=== PATIENT | male | born 1945 | race Caucasian/White ===

== ENCOUNTER 2016-07-29 14:46 | Emergency (ER) | payer BC ==
[~2016-07-29] VITALS: Ht 182.9 cm; Wt 107.0 kg
[~2016-07-29 14:46] MED LIST: ASPEC81 PO; GLIP-197 PO; HYDR12.56 PO; LATA0.5S OPB; LSN20 PO; METF-384 PO; NRV5 PO; OMEP20CA9 PO; PLV75 PO; VARD10TA PO
[2016-07-29 14:56] VITALS: BP 165/86; PULSE 73; TEMP 36.2; O2SAT 95; Ht 182.9 cm; Wt 107.0 kg
--- NOTE | 2016-07-29 15:53 | DIAGNOSTIC IMAGING REPORT ---
LEFT FIFTH FINGER 4 VIEWS CLINICAL HISTORY: Left fifth finger pain COMPARISON: None. DISCUSSION: No acute fractures or dislocations are visualized. There is a small radiopaque foreign body within the superficial soft tissues at the level of the mid metacarpal level. IMPRESSION: 1. Mild degenerative change. No acute fractures 2. Small superficial foreign body at the mid metacarpal level Electronically signed by: Conner Gamino M.D. 07/29/2016 3:52 PM Dictated Date/Time: 07/29/2016 3:51 PM
[2016-07-29] MEDS ORDERED: CYAN100073 PO (16:29)
[2016-07-29] MEDS ORDERED: CHOL20007 PO (16:29)
[2016-07-29] MEDS ORDERED: ASPI81TA28 PO (16:29)
--- NOTE | 2016-07-29 16:36 | EMERGENCY ROOM VISIT NOTE ---
ED Visit Note First contact with patient: 15:04 I did evaluate and examine this patient myself. I did guide management for the patient. I agree with the PA's assessment as discussed. Please see the PAs dictation for further details. I did independently review the x-rays.
--- NOTE | 2016-07-29 17:09 | EMERGENCY ROOM VISIT NOTE ---
History First contact with patient: 15:04 Chief Complaint: FINGER PAIN Stated Complaint: BROKEN FINGER History of Present Illness The patient is a 71 year old male who presents to the Emergency Room with complaints of left fifth finger pain after he tripped and fell this morning. The patient was initially seen at the [facility] urgent care [place], and was referred to the emergency department for possible fracture dislocation of the finger. The patient brought x-rays on disc with him. The patient reports pain mostly at the base of the finger. He denies any pain extending into the hand or wrist. He denies any paresthesias or numbness of the left fifth finger, and rates his discomfort a 4 out of 10. The patient is [id number]. Review of Systems 10 system review was performed and was negative except for pertinent positives and negatives as indicated in history of present illness Past Medical/Surgical History Medical Problems: (1) Back pain (2) Carotid artery disease (3) Cerebrovascular disease (4) Diab Sunshine Wo Compl, Type Ii Or Unspec Type, Not Uncntrld (5) Diabetes type 2, controlled (6) Dyslipidemia (7) Esophageal Reflux (8) GERD (gastroesophageal reflux disease) (9) Hypertension (10) Hypertension Nos Surgical Problems: (1) H/O hemorrhoidectomy (2) History of cataract surgery (3) Hx of tonsillectomy (4) S/P laser trabeculoplasty of eye (5) Status post cataract extraction Family History FH: diabetes mellitus FH: hypertension No pertinent family history Social History Smoking Status: Never Smoker Alcohol Use: occasionally Marital Status: Occupation Status: retired Current/Historical Medications Scheduled Amlodipine Besylate (Amlodipine Besylate), 5 MG PO QAM Aspirin (Aspirin Ec), 81 MG PO DAILY Cholecalciferol (Vitamin D3), 1 TAB PO DAILY Clopidogrel Bisulfate (Clopidogrel), 75 MG PO QAM Cyanocobalamin (B12), 1 TAB PO DAILY Glipizide (Glipizide Er), 1 TAB PO DAILY Hydrochlorothiazide (Hctz), 12.5 MG PO DAILY Latanoprost (Xalatan 0.005% Oph Precious), 1 DROPS OPB QAM Lisinopril (Lisinopril), 20 MG PO DAILY Metformin Hcl (Glucophage), 1,000 MG PO BID Omeprazole (Prilosec), 20 MG PO DAILY Allergies Coded Allergies: No Known Allergies (Unverified , 07/29/16) Physical Exam Vital Signs Date Time Temp Pulse Resp B/P Pulse Ox O2 Delivery O2 Flow Rate FiO2 07/29/16 14:56 36.2 73 16 165/86 95 Room Air Pain Rating (0-10): 0 Physical Exam CONSTITUTIONAL: Healthy and well nourished. Alert and oriented X 3 with positive affect. HEENT: Normocephalic, atraumatic. Pupils equal, round and reactive. NECK: Full active range of motion without discomfort. MUSCULOSKELETAL: Examination of the left hand shows mild dorsal edema about the MCP joint. Otherwise the patient has bilateral Dupuytren's contractures, with tenderness to the volar hand and proximal phalanx region. DIP and PIP collateral ligaments are intact. No tenderness to palpation about the wrist. Capillary refill is less than 2 seconds. INTEGUMENTARY: No rash or other significant dermatologic conditions noted. NEUROLOGIC: Left fifth finger is sensory intact. Medical Decision & Procedures ER Provider Diagnostic Interpretation: I did review the patient's x-rays from the [facility] urgent care center. AP views were normal, however the entire finger could not be seen on lateral view. I therefore ordered x-rays in our department, which showed no fractures or dislocations. Radiologist report is as follows: LEFT FIFTH FINGER 4 VIEWS CLINICAL HISTORY: Left fifth finger pain COMPARISON: None. DISCUSSION: No acute fractures or dislocations are visualized. There is a small radiopaque foreign body within the superficial soft tissues at the level of the mid metacarpal level. IMPRESSION: 1. Mild degenerative change. No acute fractures 2. Small superficial foreign body at the mid metacarpal level ED Course Patient history and physical exam were performed. Nurse's notes were reviewed. X-rays of the left hand were normal. The patient's injuries in the presence of a Dupuytren's contracture makes examination difficult. The patient reports that he has been splinting the finger, and bought some tape to tape the fingers together. The patient reports that his PCP was trying to refer him to Dr. Gentile, but does not have an appointment scheduled for the next few months. The patient was instructed to call his office on Sunday and advise them that he was in the emergency department for finger injury. The patient was encouraged to take ibuprofen or Tylenol as needed for pain, along with ice for swelling and additional pain relief. The patient was happy with plan of care, and voiced understanding of all discharge instructions. The patient was also seen and examined by Dr. Peterson, ED attending physician, who agrees with workup and plan of care. Medical Decision Impression Primary Impression: Injury of left little finger Additional Impression: Bilateral Dupuytren's contractures Departure Information Dispostion Home / Self-Care Condition GOOD Referrals Aaron Gentile MD Forms HOME CARE DOCUMENTATION FORM, IMPORTANT VISIT INFORMATION Patient Instructions Creative[employer] Additional Instructions Intermittently apply ice to finger. Continue with splinting and/or judson taping for support. Ibuprofen or Tylenol as needed for pain. Follow-up with Dr. Gentile for further reevaluation and management - call Sunday for an appointment. Problem Qualifiers
== END 2016-07-29 16:47 | disposition home or self-care (01) ==
LOC: C.EDB 14:47 → C.EDD 16:47
DX: S69.92XA Unspecified injury of left wrist, hand and finger(s), initial encounter (principal); M72.0 Palmar fascial fibromatosis [Dupuytren]; E11.9 Type 2 diabetes mellitus without complications; Z79.84 Long term (current) use of oral hypoglycemic drugs; K21.9 Gastro-esophageal reflux disease without esophagitis; E78.5 Hyperlipidemia, unspecified; I10 Essential (primary) hypertension; Z79.82 Long term (current) use of aspirin; Z83.3 Family history of diabetes mellitus; Z82.49 Family history of ischemic heart disease and other diseases of the circulatory system; W01.0XXA Fall on same level from slipping, tripping and stumbling without subsequent striking against object, initial encounter; Y93.89 Activity, other specified; Y92.89 Other specified places as the place of occurrence of the external cause; Y99.8 Other external cause status

== ENCOUNTER → 2016-09-15 | Outpatient (CLI) | payer BC ==
[~2016-09-15] MED LIST changes: -ASPEC81 PO; +ASPI81TA28 PO; +CHOL20007 PO; +CYAN100073 PO; -VARD10TA PO
[2016-09-15 13:45] LABS: ALT/SGPT 54 U/L (12-78); AST/SGOT 23 U/L (15-37); BLOOD UREA NITROGEN 16 mg/dl (7-18); BUN/CREATININE RATIO 14.4 (10-20); CARBON DIOXIDE 29 mmol/L (21-32); CHLORIDE 103 mmol/L (98-107); GLUCOSE 115 mg/dl (70-99); POTASSIUM 4.2 mmol/L (3.5-5.1); SODIUM 139 mmol/L (136-145)
[2016-09-15 13:47] LABS: ESTIMATED AVERAGE GLUCOSE 160 mg/dl; HA1C FLAG Normal (Normal)
[2016-09-15 13:50] LABS: ALB/GLOB RATIO 1.1 (0.9-2); ALKALINE PHOSPHATASE 61 U/L (45-117); CHOLESTEROL 168 mg/dl (0-200); CHOLESTEROL/HDL RATIO 4.1; HDL CHOLESTEROL 41 mg/dl; LDL CHOLESTEROL CALCULATED 86 mg/dl; TRIGLYCERIDES 205 mg/dl (0-150); VERY LOW DENSITY LIPOPROT CALC 41 mg/dl
--- NOTE | 2016-09-19 11:04 | CODING QUERY MEDICAL NECESSITY ---
SUPPORTING DIAGNOSIS NEEDED Dr. Erickson, A supporting diagnosis is required for the test/procedure performed on this patient in order for us to be reimbursed by the patient's insurance. Please provide a supporting diagnosis for the following test/procedure listed below next to the test name along with your signature. *If there is no additional diagnosis for this patient that would support the following test/procedure please document that below next to the test/procedure. Test(s)/Procedure(s) that require a supporting diagnosis: * [id number] GLYCATED HEMOGLOBIN DIAGNOSIS: * [id number] PSA DIAGNOSIS: DATE OF SERVICE: 09/15/16 Provider Signature: Date: Thank you Mat Carrero [facility] Information Management Once completed, please kindly fax back to [phone] For questions please call [phone]
== END | disposition home or self-care (01) ==
LOC: C.LABPBG 08:24
PROVIDERS: ATTEND Neuromusculoskeletal Medicine & OMM
DX: Z00.00 Encounter for general adult medical examination without abnormal findings (principal); E11.9 Type 2 diabetes mellitus without complications

== ENCOUNTER → 2016-09-22 | Outpatient (CLI) | payer BC ==
--- NOTE | 2016-09-22 09:12 | DIAGNOSTIC IMAGING REPORT ---
THORACIC SPINE 3 VIEWS CLINICAL HISTORY: Chronic thoracic back pain. FINDINGS: AP, lateral, and swimmer's views of the thoracic spine are compared to study dated 11/06/[address] scan of the thoracic spine dated 05/18/2016. The skeletal structures are osteopenic. There is no radiographic evidence of fracture or malalignment. Vertebral body height and alignment are maintained. There is mild hyperkyphosis. Anterior osteophytes are seen throughout. The transverse processes and pedicles are grossly intact on the frontal view. Mild multilevel degenerative disc space narrowing is observed. The visualized lung parenchyma appears clear. IMPRESSION: 1. No acute bony abnormality is seen involving the thoracic spine. 2. Osteopenia and mild degenerative change as above. Electronically signed by: Pk Osuna M.D. 09/22/2016 9:11 AM Dictated Date/Time: 09/22/2016 9:09 AM
== END | disposition home or self-care (01) ==
LOC: C.RAD1850 08:50
PROVIDERS: ATTEND Neuromusculoskeletal Medicine & OMM
DX: M54.9 Dorsalgia, unspecified (principal); M85.88 Other specified disorders of bone density and structure, other site

== ENCOUNTER → 2016-12-22 | Outpatient (CLI) | payer BC ==
[~2016-12-22] MED LIST changes: +AMLO-110 PO; +CLOP1TAB15 PO; +DEXTSYP27 PO; +LISI1TAB3 PO; +MELO15TA4 PO; +METH500T37 PO; +VARD10TA PO
[2016-12-22 12:30] LABS: BASO % 0.3 %; BASO ABS # 0.03 K/uL (0-0.2); COMPLETE YES; EOS % 3.7 %; HEMATOCRIT 45.8 % (42-52); IG% 0.2 %; LYMPH ABS # 1.39 K/uL (1.2-3.4); MEAN CORPUSCULAR HEMOGLOBIN 28.6 pg (25-34); MEAN CORPUSCULAR HGB CONC 33.6 g/dl (32-36); MEAN PLATELET VOLUME 11.4 fL (7.4-10.4); NEUT % 73.8 %; PLATELET COUNT 254 K/uL (130-400); RED BLOOD COUNT 5.39 M/uL (4.7-6.1)
[2016-12-22 14:14] LABS: ALKALINE PHOSPHATASE 83 U/L (45-117); ALT/SGPT 67 U/L (12-78); AST/SGOT 33 U/L (15-37); BLOOD UREA NITROGEN 12 mg/dl (7-18); BUN/CREATININE RATIO 11.7 (10-20); CARBON DIOXIDE 29 mmol/L (21-32); CHLORIDE 102 mmol/L (98-107); GLUCOSE 143 mg/dl (70-99); POTASSIUM 3.5 mmol/L (3.5-5.1); SODIUM 139 mmol/L (136-145)
[2016-12-22 14:27] LABS: LYME DISEASE AB IGG POS (NEG); LYME DISEASE AB IGM POS (NEG)
[2016-12-27 15:00] LABS: 18KDIGG BAND NONREACTIVE (NONREACTIVE); 23KDIGG BAND REACTIVE (NONREACTIVE); 23KDIGM BAND REACTIVE (NONREACTIVE); 28KDIGG BAND NONREACTIVE (NONREACTIVE); 30KDIGG BAND NONREACTIVE (NONREACTIVE); 39KDIGG BAND NONREACTIVE (NONREACTIVE); 39KDIGM BAND NONREACTIVE (NONREACTIVE); 41KDIGG BAND REACTIVE (NONREACTIVE); 41KDIGM BAND REACTIVE (NONREACTIVE); 45KDIGG BAND REACTIVE (NONREACTIVE); 58KDIGG BAND REACTIVE (NONREACTIVE); 66KDIGG BAND REACTIVE (NONREACTIVE); 93KDIGG BAND REACTIVE (NONREACTIVE)
== END | disposition home or self-care (01) ==
LOC: C.LABPBG 07:42
PROVIDERS: ATTEND Neuromusculoskeletal Medicine & OMM
DX: R21 Rash and other nonspecific skin eruption (principal)

== ENCOUNTER → 2017-01-25 | Outpatient (CLI) | payer BC ==
[~2017-01-25] MED LIST changes: -AMLO-110 PO; -CLOP1TAB15 PO; -DEXTSYP27 PO; -LISI1TAB3 PO; -MELO15TA4 PO; -METH500T37 PO; -VARD10TA PO
[2017-01-25 13:27] LABS: ESTIMATED AVERAGE GLUCOSE 151 mg/dl; HA1C FLAG Normal (Normal)
[2017-01-25 14:44] LABS: BLOOD UREA NITROGEN 12 mg/dl (7-18); BUN/CREATININE RATIO 10.7 (10-20); CARBON DIOXIDE 28 mmol/L (21-32); CHLORIDE 103 mmol/L (98-107); GLUCOSE 118 mg/dl (70-99); POTASSIUM 4.1 mmol/L (3.5-5.1); SODIUM 140 mmol/L (136-145)
--- NOTE | 2017-01-31 10:14 | CODING QUERY MEDICAL NECESSITY ---
SUPPORTING DIAGNOSIS NEEDED Dr. Eirckson, A supporting diagnosis is required for the test/procedure performed on this patient in order for us to be reimbursed by the patient's insurance. Please provide a supporting diagnosis for the following test/procedure listed below next to the test name along with your signature. *If there is no additional diagnosis for this patient that would support the following test/procedure please document that below next to the test/procedure. Test(s)/Procedure(s) that require a supporting diagnosis: * ([id number]) VITAMIN D ASSAY DIAGNOSIS: * ([id number]) B12 VITAMIN LEVEL DIAGNOSIS: DATE OF SERVICE: 01/25/17 Provider Signature: Date: Thank you Mat Carrero [facility] Information Management Once completed, please kindly fax back to [phone] For questions please call [phone]
== END | disposition home or self-care (01) ==
LOC: C.LABPBG 09:36
PROVIDERS: ATTEND Neuromusculoskeletal Medicine & OMM
DX: E11.9 Type 2 diabetes mellitus without complications (principal); R53.83 Other fatigue

== ENCOUNTER → 2017-03-27 | Outpatient (CLI) | payer BC ==
--- NOTE | 2017-03-27 09:34 | DIAGNOSTIC IMAGING REPORT ---
R SHOULDER MIN 2 VIEWS ROUTINE HISTORY: 71 years-old Male M25.511 Right shoulder [id number] acute right shoulder pain without reported trauma. Initial exam. COMPARISON: Portable chest radiograph 05/18/2016 TECHNIQUE: 3 views of the right shoulder. FINDINGS: Mild to moderate acromioclavicular and glenohumeral joint degenerative changes are noted. There is no acute fracture or dislocation. No intra-articular loose body identified. The imaged lung riley appear clear. IMPRESSION: Mild to moderate degenerative changes of the glenohumeral and acromioclavicular joints without acute bony abnormality. The above report was generated using voice recognition software. It may contain grammatical, syntax or spelling errors. Electronically signed by: Tristin Brown M.D. 03/27/2017 9:33 AM Dictated Date/Time: 03/27/2017 9:31 AM
== END | disposition home or self-care (01) ==
LOC: C.RAD 08:59
PROVIDERS: ATTEND Neuromusculoskeletal Medicine & OMM
DX: M25.511 Pain in right shoulder (principal); M19.011 Primary osteoarthritis, right shoulder

== ENCOUNTER → 2017-05-18 | Outpatient (CLI) | payer BC ==
[2017-05-18 12:49] LABS: ESTIMATED AVERAGE GLUCOSE 154 mg/dl; HA1C FLAG Normal (Normal)
== END | disposition home or self-care (01) ==
LOC: C.LABPBG 08:24
PROVIDERS: ATTEND Family Medicine
DX: E11.9 Type 2 diabetes mellitus without complications (principal)

== ENCOUNTER → 2017-06-15 | Outpatient (CLI) | payer BC ==
[~2017-06-15] MED LIST changes: +AMLO-110 PO; -ASPI81TA28 PO; +CLOP1TAB15 PO; -CYAN100073 PO; +DEXTSYP27 PO; -HYDR12.56 PO; +LISI1TAB3 PO; -LSN20 PO; +MELO15TA4 PO; +METH500T37 PO; -NRV5 PO; -PLV75 PO; +VARD10TA PO
[2017-06-15 12:22] LABS: BASO % 0.4 %; BASO ABS # 0.04 K/uL (0-0.2); COMPLETE YES; EOS % 5.9 %; IG% 0.2 %; LYMPH % 17.6 %; MEAN CELL VOLUME 85.9 fL (80-100); MEAN CORPUSCULAR HEMOGLOBIN 29.2 pg (25-34); MEAN PLATELET VOLUME 10.7 fL (7.4-10.4); MONO % 11.5 %; NEUT % 64.4 %; PLATELET COUNT 244 K/uL (130-400); RED BLOOD COUNT 5.59 M/uL (4.7-6.1); WHITE BLOOD COUNT 9.65 K/uL (4.8-10.8)
[2017-06-15 13:02] LABS: RATIO 5.7 mcg/mg (0-30.0)
[2017-06-15 13:04] LABS: BLOOD UREA NITROGEN 17 mg/dl (7-18); BUN/CREATININE RATIO 15.2 (10-20); CARBON DIOXIDE 30 mmol/L (21-32); CHLORIDE 102 mmol/L (98-107); GLUCOSE 124 mg/dl (70-99); POTASSIUM 4.2 mmol/L (3.5-5.1); SODIUM 136 mmol/L (136-145)
[2017-06-15 13:13] LABS: CHOLESTEROL 174 mg/dl (0-200); CHOLESTEROL/HDL RATIO 3.7; HDL CHOLESTEROL 47 mg/dl; LDL CHOLESTEROL CALCULATED 90 mg/dl; TRIGLYCERIDES 185 mg/dl (0-150); VERY LOW DENSITY LIPOPROT CALC 37 mg/dl
== END | disposition home or self-care (01) ==
LOC: C.LABPBG 08:21
PROVIDERS: ATTEND Family Medicine
DX: I10 Essential (primary) hypertension (principal); E78.1 Pure hyperglyceridemia; R41.840 Attention and concentration deficit

== ENCOUNTER → 2017-07-18 | Outpatient (CLI) | payer BC ==
[2017-07-18 17:53] LABS: BLOOD UREA NITROGEN 17 mg/dl (7-18); CALCIUM 9.9 mg/dl (8.5-10.1); CARBON DIOXIDE 31 mmol/L (21-32); GLUCOSE 180 mg/dl (70-99); POTASSIUM 4.1 mmol/L (3.5-5.1); SODIUM 135 mmol/L (136-145)
== END | disposition home or self-care (01) ==
LOC: C.LABPBG 13:40
PROVIDERS: ATTEND Family Medicine
DX: Z11.59 Encounter for screening for other viral diseases (principal); I10 Essential (primary) hypertension

== ENCOUNTER → 2018-01-30 | Outpatient (CLI) | payer BC ==
[~2018-01-30] MED LIST changes: -AMLO-110 PO; +AMLO5TAB3 PO; +LISI-863 PO; -LISI1TAB3 PO; +MELO-84 PO; -MELO15TA4 PO
[2018-01-30 13:30] LABS: HEMOGLOBIN A1C 7.3 % (4.5-5.6)
== END | disposition home or self-care (01) ==
LOC: C.LABPBG 07:46
PROVIDERS: ATTEND Family Medicine
DX: E11.42 Type 2 diabetes mellitus with diabetic polyneuropathy (principal)

== ENCOUNTER 2018-12-10 14:31 | Observation (INO) ==
[2018-12-10] MEDS ORDERED: SODIUM CHLORIDE 0.9% 1000ML 1,000 ML IV SCH (15:15)
[2018-12-10 15:28] LABS: Basophils # (auto) 0.03 K/uL (0-0.2); Basophils % (auto) 0.4 %; Eosinophils # (auto) 0.51 K/uL (0-0.5); Eosinophils % (auto) 6.5 %; Hemoglobin 15.3 g/dL (14.0-18.0); Immature Granulocytes # (auto) 0.01 K/uL (0.00-0.02); Immature Granulocytes % (auto) 0.1 %; Lymphocytes # (auto) 1.77 K/uL (1.2-3.4); Lymphocytes % (auto) 22.4 %; Mean Corpuscular Hgb Conc 34.8 g/dL (32-36); Mean Corpuscular Volume 83.7 fL (80-100); Mean Platelet Volume 10.4 fL (7.4-10.4); Monocytes # (auto) 0.83 K/uL (0.11-0.59); Monocytes % (auto) 10.5 %; Neutrophils # (auto) 4.74 K/uL (1.4-6.5); Neutrophils % (auto) 60.1 %; Platelet Count 257 K/uL (130-400); Red Blood Count 5.26 M/uL (4.7-6.1); White Blood Count 7.89 K/uL (4.8-10.8)
[2018-12-10 15:39] LABS: Prothrombin Time 10.3 Seconds (9.0-12.0)
--- NOTE | 2018-12-10 15:39 | XRay Report ---
XR chest 1V portable HISTORY: 73 years-old Male Chest Pain acute atypical chest pain COMPARISON: Chest radiograph 05/18/2016 TECHNIQUE: Portable AP view of the chest FINDINGS: Cardiomediastinal and hilar silhouettes appear unchanged. There is no pneumothorax, pleural effusion, focal airspace consolidation or overt pulmonary edema. Minimal lateral left basilar atelectasis/scar ring. Degenerative changes of the shoulders and spine. IMPRESSION: No acute process. The above report was generated using voice recognition software. It may contain grammatical, syntax o r spelling errors. Electronically signed by: Tristin Brown M.D. 12/10/2018 3:37 PM
[2018-12-10 15:45] LABS: Alanine Aminotransferase 24 U/L (12-78); Albumin Level 3.7 gm/dl (3.4-5.0); Aspartate Aminotransferase 12 U/L (15-37); BUN Creatinine Ratio 11.3 (10-20); Blood Urea Nitrogen 12 mg/dl (7-18); Carbon Dioxide 29 mmol/L (21-32); Chloride 102 mmol/L (98-107); Creatinine Clr Calc Pharmacy 77.1 ml/min; Est GFR (African American) 78.2; Est GFR (Non-African American) 67.5; Glucose 154 mg/dl (70-99); Magnesium 1.6 mg/dl (1.8-2.4); Potassium 3.8 mmol/L (3.5-5.1); Sodium 137 mmol/L (136-145)
[2018-12-10 15:50] LABS: Alkaline Phosphatase 80 U/L (45-117); Bilirubin,Total 0.3 mg/dl (0.2-1); Globulin 3.6 gm/dl (2.5-4.0); Phosphorus 3.5 mg/dl (2.5-4.9); Total Protein 7.3 gm/dl (6.4-8.2); Troponin I < 0.015 ng/ml (0-0.045)
[2018-12-10] MEDS ORDERED: OPTIRAY 320 125ml IV PRN (16:05)
--- NOTE | 2018-12-10 16:18 | CT Scan Report ---
CT SCAN OF THE BRAIN WITHOUT IV CONTRAST CLINICAL HISTORY: Aphasia. COMPARISON STUDY: CT of the brain dated 08/05/2018 TECHNIQUE: Unenhanced axial CT scan of the brain is performed from the vertex to the skull base. A do se lowering technique was utilized adhering to the principles of ALARA. FINDINGS: Brain parenchyma: There are age-related involutional changes noting moderate subcortical and periven tricular microangiopathic change. There is no hemorrhage, mass effect, or evidence of acute territori al ischemia by CT criteria. Schwartz-white matter differentiation is preserved. No extra-axial fluid mary ann ection is seen. Ventricles, sulci, cisterns: Prominent secondary to involutional change. Intracranial vasculature: There is atherosclerotic calcification of the cavernous carotid and vertebr al arteries. Calvarium: Unremarkable. Sinuses and mastoids: The visualized paranasal sinuses are clear. The mastoid air cells are well pneu matized. Orbits: The bony orbits are grossly intact. IMPRESSION: There is no hemorrhage, mass effect, or evidence of acute territorial ischemia by CT fan correia. Electronically signed by: Pk Osuna M.D. 12/10/2018 4:17 PM
--- NOTE | 2018-12-10 16:32 | CT Scan Report ---
CT ANGIOGRAM OF THE BRAIN; CT ANGIOGRAM OF THE NECK CLINICAL HISTORY: Aphasia COMPARISON STUDY: Unenhanced CT of the brain performed the same day 12/10/2018. CT angiogram of the h ead and neck dated 08/05/2018. MR angiogram of the brain dated 09/10/2014. CT of the chest dated 03/22/20 07. TECHNIQUE: Following the IV administration of 119 of Optiray 320, CT angiogram of the head and neck w as performed from the aortic arch to the vertex. Images are reviewed in the axial, sagittal, and bishop nal planes. 3-D MIPS images are created and assessed. IV contrast was administered without complicati on. All measurements were calculated based on NASCET criteria. A dose lowering technique was utilize d adhering to the principles of ALARA. CT DOSE: 1097.75 mGy.cm FINDINGS: Brain parenchyma: There is age-related involutional change noting moderate subcortical and periventri cular microangiopathic disease. There is no hemorrhage, mass effect, or evidence of acute territorial ischemia by CT criteria. There is no evidence of enhancing mass lesion on the angiogram phase images . The ventricles, sulci, and cisterns are prominent secondary to involutional change. Schwartz-white niranjan er differentiation is preserved. No extra-axial fluid collection is seen. Right carotid arterial system: The right common carotid artery is widely patent, as are the right int ernal and external carotid arteries. Soft and calcified plaque within the carotid bulb and proximal r ight internal carotid artery cause less than 50% luminal narrowing. Left carotid arterial system: The left common carotid artery is patent. There is less than 50% lumina l narrowing of the distal common carotid artery secondary to soft plaque. Soft and calcified plaque c auses approximately 50% stenosis at the origin of the left internal carotid artery. The remainder of the left internal carotid artery is widely patent, as is the left external carotid artery. Vertebral arteries: The vertebral arteries and neck are patent bilaterally noting left-sided dominanc e. Subclavian arteries: Widely patent bilaterally. Intracranial vasculature: There is atherosclerotic calcification of the cavernous carotid and vertebr al arteries. The internal carotid arteries are patent at the skull base, as are the anterior and midd le cerebral arteries bilaterally. The right A1 segment is atretic. The left vertebral artery, the bas ilar artery, and the posterior cerebral arteries are patent. The left vertebral artery is dominant. T he right vertebral artery is diminutive and is occluded distally just below the basilar. There is no aneurysm or high-grade stenosis is seen throughout the intracranial circulation. Jugular veins: Widely patent bilaterally. Dural sinuses: Patent. Lung apices: There is a 5 mm right upper lobe pulmonary nodule seen image #9. This is been present da ting back to 2007 and is of doubtful significance. Partially visualized upper lobe lung parenchyma ot herwise appears clear. Soft tissues: The visualized pharyngeal soft tissues are normal in appearance noting angiographic pha se technique. The oropharyngeal airway appears widely patent. The salivary and thyroid glands are nor mal in appearance. No cervical lymphadenopathy is seen. Orbits: The bony orbits are grossly intact. There has been banding of the right ocular globe. Bilater al lens implants are noted. Skeletal structures: The skeletal structures are osteopenic. The calvarium appears intact. The cervic al spine is maintained noting spondylotic change. Sinuses and mastoids: The paranasal sinuses are clear. The mastoid air cells are well pneumatized. IMPRESSION: 1. There is no hemorrhage, mass effect, or evidence of acute territorial ischemia by CT criteria on t his angiographic phase examination. 2. Unchanged CT angiogram of the head and neck from study dated 08/05/2018. 3. 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 4. The intracranial vessels are otherwise patent. 5. There is approximately 50% stenosis at the origin of the left internal carotid artery. 6. No high-grade stenosis is seen within the right carotid arterial system. Electronically signed by: Pk Osuna M.D. 12/10/2018 4:31 PM
[2018-12-10 16:43] LABS: Appearance Urine Clear (Clear); Bilirubin Urine Negative (Negative); Blood Urine Negative (Negative); Color Urine Yellow; Glucose Urine UA Negative (Negative); Ketones Urine Negative (Negative); Leukocyte Esterase Urine Negative (Negative); Nitrite Urine Negative (Negative); Protein Urine Negative (Negative); Specific Gravity Urine 1.031 (1.000-1.030); Urobilinogen Urine Negative (Negative); pH Urine 5.5 (4.5-7.5)
[2018-12-10] MEDS ORDERED: MAGNESIUM SULFATE / D5W 1 GM/100 ML BAG IV STA (17:18)
--- NOTE | 2018-12-10 18:19 | History & Physical Report ---
Date of Service December 10, 2018 Assessment & Plan (1) Aphasia: Appears resolved but pt states he is still having to concentrate more on his speech than prior to event Concerning as event happened in the setting of consistent plavix use CT head neg for acute CTA head/neck noted for occlusion, but no change since last imaging MRI pending CBC, PRP WNL and trop neg x1 Minor hypoMg, but unlikely to cause sx TSH pending CXR and UA neg for infectious causes ?? HTN emergency in the setting of stress causing stroke-like sx that have been slow to resolve?? BP is still elevated in the setting of consistent medication use Lipids WNL 06/2018, panel pending No hx of hyperlipidemia Neuro c/s pending Hold on PT/OT ST eval pending (2) Hypomagnesemia: Replaced in the ED, monitor (3) Diabetes type 2, controlled: Holding home metformin due to contrast use SSI PRN A1c 6.8 06/2018, repeat pending (4) Hypertension: As noted above Monitor on home meds (5) GERD (gastroesophageal reflux disease): continue home meds (6) DVT prophylaxis: SCDs History of Present Illness Primary Care Provider: Sarabjit Erickson, DO 73 y/o M c/o word finding issues. Pt states that last week was very stressful for his family. His grandson graduated on Sunday, so there was a lot of activity related to this event, however pt's nephew committed suicide on and the was also Sunday. Pt had a lot of stress related to this event. On Sunday, pt found that he knew what he wanted to say, but the words and sounds coming out of his mouth were not what he intended. His states that he was saying nonsense words. No slurring per se, but just not making sense. This persisted throughout the day. It was improved on Sunday, but still not at his usual. He tried to see his PCP but could not get an appt until Sunday, so he saw another physician and was directed to the ED. Pt states he never felt confused, just could not make his words match his intended speech. He states that his memory since that time has not been his usual. At present, he has a slight headache, which is unusual for him. He is not sure if he had a headache during the episode or not. No vision issues now, but cannot remember if he did then. states that he never had any issues with use of UE/LE that she noted and he is fine from that standpoint currently. Pt states that he can present his thoughts, but he has to try more to make sure it is correct than he would normally have to. He states that he does occasionally make an incorrect word or sound, but this is nothing like it was on Sunday. Pt takes plavix. He denies missing doses or being out of medication recently. He does admit that at times he forgets his HS metformin and glipizide dosing. There was some concern on Sunday that his BS was high or low, but it was never checked. Pt has been on plavix since 2015 when was dx with TIA. Sx at that time involved an inability to walk in a straight line, but rather was walking in a telida. No speech/word finding issues with that event. Pt denies fever, SOB, chest pain, abd pain, n/v/c/d, LE pain or swelling. Allergies Allergy/AdvReac Type Severity Reaction Status Date / Time No Known Allergies Allergy Unverified 12/10/18 15:35 Home Medications Home Medications Medication Instructions Recorded Confirmed Type amlodipine [Norvasc] 5 mg PO DAILY 12/10/18 12/10/18 History cholecalciferol (vitamin D3) 2,000 unit PO DAILY 12/10/18 12/10/18 History [Vitamin D3] clopidogrel [Plavix] 75 mg PO DAILY 12/10/18 12/10/18 History glipizide [Glucotrol XL] 10 mg PO QPM 12/10/18 12/10/18 History latanoprost [Xalatan] 1 drp OPB DAILY 12/10/18 12/10/18 History lisinopril-hydrochlorothiazide 1 tab PO DAILY 12/10/18 12/10/18 History [Zestoretic] metformin [Glucophage] 1,000 mg PO BID 12/10/18 12/10/18 History omeprazole 20 mg PO DAILY 12/10/18 12/10/18 History sildenafil [Viagra] 50 mg PO .PRN 12/10/18 12/10/18 History Past Med/Surg History Medical History TIA (transient ischemic attack) (Acute) GERD (gastroesophageal reflux disease) (Chronic) HTN (hypertension) (Chronic) Family History Mother Stroke Father Stroke Social History Feels Safe at Home: Yes Smoking Status: Never smoker Hx Alcohol Use: Yes (hx of use, but not for many years) Hx Substance Use: No Review of Systems Review of Systems: Pertinent positives and negatives reviewed in HPI--all others negative Physical Exam Constitutional: WD/WN, vitals as above Eyes: normal visual riley by confrontation and + anicteric sclerae Neck: normal visual inspection and trachea midline Respiratory: normal respiratory effort, lungs clear to auscultation Cardiovascular: Rate/Rhythm: regular rate and regular rhythm Gastrointestinal (Abdomen): Inspection/Auscultation: abdomen not distended Percussion/Palpation: abdomen soft; abdomen nontender Musculoskeletal: Head/Neck/Chest: normocephalic and head atraumatic negative for edema, peripheral pulses intact Skin: no rashes, warm and dry Neurologic: CN's II-XI intact bilaterally and awake; not confused Speech / Cognition: normal speech = strength 5/5 admeasurer = LE strength against resistance b/l in all planes Psychiatric: A+Ox3, euthymic affect Speech: normal rate/rhythm/volume of speech Thought Process: linear/logical thought process; thought process not incoherent and no word salad Results & Data Vital Signs (Past 12 Hours) Vital Signs Temp Pulse Resp BP Pulse Ox 12/10/18 17:30 69 22 100 12/10/18 17:20 66 20 96 12/10/18 17:10 66 21 97 12/10/18 17:00 67 21 174/95 H 100 12/10/18 16:50 68 19 96 12/10/18 16:40 66 21 100 12/10/18 16:32 64 17 97 12/10/18 16:31 59 L 18 162/100 H 98 12/10/18 16:30 64 11 L 96 12/10/18 16:29 64 27 H 100 12/10/18 16:28 65 15 161/96 H 12/10/18 16:00 60 27 H 96 12/10/18 15:50 60 22 98 12/10/18 15:40 61 27 H 96 12/10/18 15:15 96 12/10/18 14:38 36.4 C L 76 20 153/76 H 93 Diagnostic Findings CXR: neg for acute CT head: neg for acute CTA head/neck:. There is no hemorrhage, mass effect, or evidence of acute territorial ischemia by CT criteria on this angiographic phase examination. 2. Unchanged CT angiogram of the head and neck from study dated 08/05/2018. 3. 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 4. The intracranial vessels are otherwise patent. 5. There is approximately 50% stenosis at the origin of the left internal carotid artery. 6. No high-grade stenosis is seen within the right carotid arterial system. ECG Rhythm: normal sinus Code Status & VTE Plan Code Status Other: Full code, although pt states no prolonged mechanical life support, feeding tubes, etc. is present and agrees. VTE Prophylaxis Plan VTE Prophylaxis will be ordered: Yes
--- NOTE | 2018-12-10 18:35 | Emergency Department Note ---
Entered by Darlene Jenkins acting as a scribe for Arcenio Akers MD History of Present Illness General Chief complaint: Stroke/CVA Symptoms Stated complaint: STROKE Time Seen by Provider: 12/10/18 14:53 Source: patient and family () History of Present Illness Provider complaint: speech problems Onset (ago): day(s) 3 Location: mouth Pain Consistency: + intermittent Quality: + other (says a word differently or says a word that he does not mean to say) Associated symptoms: + other (recent stress) The patient is a 73 year old male who presents to the Emergency Department with complaints of intermittent speech problems over the last 3 days. He states that he see his doctor as his speech was off who referred him here for concern of a stroke. Per , the patient was fine 3 mornings ago but states that during the afternoon his symptoms began. The patient states that he had a stressful day 4 days ago with a . The patient states that he is able to talk now but states that intermittently he says a word differently or says a word that he does not mean to say. He states that he "does not feel right." He states that this has not happened to him before. The patient reports a history of 2 TIAs. He states that he is on Plavix for stroke prevention. His states that the patient complained of a headache and felt confused with his TIAs but did not have weakness in his arms or difficulty with his speech. The patient reports that he is not on other blood thinners. Home Medications Home Medications Medication Instructions Recorded Confirmed Type amlodipine [Norvasc] 5 mg PO DAILY 12/10/18 12/10/18 History cholecalciferol (vitamin D3) 2,000 unit PO DAILY 12/10/18 12/10/18 History [Vitamin D3] clopidogrel [Plavix] 75 mg PO DAILY 12/10/18 12/10/18 History glipizide [Glucotrol XL] 10 mg PO QPM 12/10/18 12/10/18 History latanoprost [Xalatan] 1 drp OPB DAILY 12/10/18 12/10/18 History lisinopril-hydrochlorothiazide 1 tab PO DAILY 12/10/18 12/10/18 History [Zestoretic] metformin [Glucophage] 1,000 mg PO BID 12/10/18 12/10/18 History omeprazole 20 mg PO DAILY 12/10/18 12/10/18 History sildenafil [Viagra] 50 mg PO .PRN 12/10/18 12/10/18 History Allergies Allergy/AdvReac Type Severity Reaction Status Date / Time No Known Allergies Allergy Unverified 12/10/18 15:35 Past Med/Surg History Medical History TIA (transient ischemic attack) (Acute) GERD (gastroesophageal reflux disease) (Chronic) HTN (hypertension) (Chronic) Family History Mother Stroke Father Stroke Social History Preferred Language: Bengali Riding Double Required: No Beliefs That Will Affect Care: None Current Living Situation: Spouse Feels Safe at Home: Yes Smoking Status: Never smoker Hx Alcohol Use: No Hx Substance Use: No Review of Systems See HPI for pertinent positives & negatives. and A total of 10 systems reviewed and were otherwise negative Physical Exam Vital Signs Vital Signs - 24 hr 12/10/18 14:38 12/10/18 15:15 12/10/18 15:40 Temperature 36.4 C L Temperature Source Oral Sepsis Recent Fever Within 48 Hours No Sepsis Action Taken by Nursing No Action Required Pulse Rate 76 61 Pulse Rate from SpO2 Sensor 62 Respiratory Rate 20 27 H Respiratory Effort / Characteristics Non-Labored Respiratory Depth Normal Blood Pressure 153/76 H Blood Pressure Mean 101 Pulse Oximetry 93 96 96 Oxygen Delivery Method Room Air Room Air 12/10/18 15:50 12/10/18 16:00 12/10/18 16:28 Temperature Temperature Source Sepsis Recent Fever Within 48 Hours Sepsis Action Taken by Nursing Pulse Rate 60 60 65 Pulse Rate from SpO2 Sensor 59 L 59 L Respiratory Rate 22 27 H 15 Respiratory Effort / Characteristics Respiratory Depth Blood Pressure 161/96 H Blood Pressure Mean 117 Pulse Oximetry 98 96 Oxygen Delivery Method 12/10/18 16:29 12/10/18 16:30 12/10/18 16:31 Temperature Temperature Source Sepsis Recent Fever Within 48 Hours Sepsis Action Taken by Nursing Pulse Rate 64 64 59 L Pulse Rate from SpO2 Sensor 64 64 62 Respiratory Rate 27 H 11 L 18 Respiratory Effort / Characteristics Respiratory Depth Blood Pressure 162/100 H Blood Pressure Mean 120 Pulse Oximetry 100 96 98 Oxygen Delivery Method 12/10/18 16:32 12/10/18 16:40 12/10/18 16:50 Temperature Temperature Source Sepsis Recent Fever Within 48 Hours Sepsis Action Taken by Nursing Pulse Rate 64 66 68 Pulse Rate from SpO2 Sensor 64 66 67 Respiratory Rate 17 21 19 Respiratory Effort / Characteristics Respiratory Depth Blood Pressure Blood Pressure Mean Pulse Oximetry 97 100 96 Oxygen Delivery Method 12/10/18 17:00 12/10/18 17:10 12/10/18 17:20 Temperature Temperature Source Sepsis Recent Fever Within 48 Hours Sepsis Action Taken by Nursing Pulse Rate 67 66 66 Pulse Rate from SpO2 Sensor 66 68 67 Respiratory Rate 21 21 20 Respiratory Effort / Characteristics Respiratory Depth Blood Pressure 174/95 H Blood Pressure Mean 121 Pulse Oximetry 100 97 96 Oxygen Delivery Method 12/10/18 17:30 12/10/18 17:40 12/10/18 17:50 Temperature Temperature Source Sepsis Recent Fever Within 48 Hours Sepsis Action Taken by Nursing Pulse Rate 69 68 75 Pulse Rate from SpO2 Sensor 70 68 73 Respiratory Rate 22 17 22 Respiratory Effort / Characteristics Respiratory Depth Blood Pressure Blood Pressure Mean Pulse Oximetry 100 96 98 Oxygen Delivery Method 12/10/18 18:00 12/10/18 18:02 Temperature Temperature Source Sepsis Recent Fever Within 48 Hours Sepsis Action Taken by Nursing Pulse Rate 70 74 Pulse Rate from SpO2 Sensor 70 76 Respiratory Rate 15 17 Respiratory Effort / Characteristics Respiratory Depth Blood Pressure 161/107 H Blood Pressure Mean 125 Pulse Oximetry 99 94 Oxygen Delivery Method GENERAL: Awake, alert, well-appearing, in no distress HENT: Normocephalic, atraumatic. Oropharynx with dry mucous membranes and otherwise unremarkable. EYES: Normal conjunctiva. Sclera non-icteric. EOMI. No nystamgus. PEARRL. NECK: Supple. No nuchal rigidity. FROM. No JVD. RESPIRATORY: Clear to auscultation bilaterally. CARDIAC: Regular rate, normal rhythm. Extremities warm and well perfused. Pulses equal. ABDOMEN: Soft, non-distended. No tenderness to palpation. No rebound or guarding. No masses. RECTAL: Deferred. MUSCULOSKELETAL: Chest examination reveals no tenderness. The back is symmetrical on inspection without obvious abnormality. There is no CVA tenderness to palpation. No joint edema. LOWER EXTREMITIES: Calves are equal size bilaterally and non-tender. No edema. No discoloration. NEURO: Normal sensorium. No sensory or motor deficits noted. Cerebellar function intact, including finger to nose, alternating palms, heel to anderson. 5/5 strength and SILT x4 extremities. Steady gait. SKIN: No rash or jaundice noted. Course 1453: The patient was evaluated in room B9. A history and physical were performed. 1730: I updated the patient who verbalized agreement and understanding of the treatment plan. 1738: I discussed the patient's case with Dr. Zaheer Bonner who will evaluate the patient for further management. Consultations Consultation #1: Dr. Zaheer Bonner Time: 17:38 Administered Medications Ioversol (Optiray 320 125ml) 119 ml IV ONCE PRN PRN Reason: Interaction Checking Stop: 12/14/18 16:04 Last Admin: 12/10/18 16:06 Dose: 119 ml Documented by: [id number] Discontinued Medications Sodium Chloride (Nss 1000ml) 1,000 mls @ 999 mls/hr IV .Q1H1M SRIRAM Stop: 12/10/18 16:15 Last Infusion: 12/10/18 16:42 Dose: 0 mls/hr Documented by: [id number] Admin: 12/10/18 15:41 Dose: 999 mls/hr Documented by: [id number] Magnesium Sulfate/Dextrose (Magnesium Sulfate / D5w) 1 gm in 100 mls @ 100 mls/hr IV NOW STA Stop: 12/10/18 18:17 Last Infusion: 12/10/18 18:27 Dose: 0 mls/hr Documented by: [id number] Admin: 12/10/18 17:27 Dose: 100 mls/hr Documented by: [id number] Lorazepam (Ativan) 0.25 mg in 0.5 mls @ 0.5 mls/min IV NOW STA Stop: 12/10/18 21:03 Last Admin: 12/10/18 21:25 Dose: 0.5 mls/min Documented by: [id number] Metoprolol Tartrate (Lopressor) 5 mg IV NOW STA Stop: 12/10/18 20:14 Last Admin: 12/10/18 20:22 Dose: 5 mg Documented by: [id number] Medical Decision Making Differential Diagnosis Differential includes acute coronary syndrome, myocardial infarction, CVA, TIA, anemia, infection, pneumonia, UTI, pyelonephritis, poor nutrition, dehydration, electrolyte disturbance,hypoglycemia. Medical Records Attestation: I reviewed the patient's medical records. Home Medications Current Medication List: was personally reviewed by me Laboratory Data Attestation: I reviewed the patient's lab results. Result diagrams: 12/10/18 15:15 12/10/18 15:15 Lab Results 12/10/18 12/10/18 12/10/18 Range/Units 15:15 15:15 15:15 WBC 7.89 (4.8-10.8) K/uL RBC 5.26 (4.7-6.1) M/uL Hgb 15.3 (14.0-18.0) g/dL Hct 44.0 (42-52) % MCV 83.7 (80-100) fL MCH 29.1 (25-34) pg MCHC 34.8 (32-36) g/dL RDW Std Deviation 39.0 (36.4-46.3) fL RDW Coeff of Zeina 13.0 (11.5-14.5) % Plt Count 257 (130-400) K/uL MPV 10.4 (7.4-10.4) fL Immature Gran % (Auto) 0.1 % Neut % (Auto) 60.1 % Lymph % (Auto) 22.4 % Harrison % (Auto) 10.5 % Eos % (Auto) 6.5 % Baso % (Auto) 0.4 % Immature Gran # (Auto) 0.01 (0.00-0.02) K/uL Neut # (Auto) 4.74 (1.4-6.5) K/uL Lymph # (Auto) 1.77 (1.2-3.4) K/uL Harrison # (Auto) 0.83 H (0.11-0.59) K/uL Eos # (Auto) 0.51 H (0-0.5) K/uL Baso # (Auto) 0.03 (0-0.2) K/uL PT 10.3 (9.0-12.0) Seconds INR 1.0 (0.9-1.1) Sodium 137 (136-145) mmol/L Potassium 3.8 (3.5-5.1) mmol/L Chloride 102 (98-107) mmol/L Carbon Dioxide 29 (21-32) mmol/L Anion Gap 6.0 (3-11) BUN 12 (7-18) mg/dl Creatinine 1.09 (0.6-1.4) mg/dl Est Cr Clr Drug Dosing 77.1 ml/min Est GFR ( Amer) 78.2 Est GFR (Non-Af Amer) 67.5 BUN/Creatinine Ratio 11.3 (10-20) Glucose 154 H (70-99) mg/dl POC Glucose (70-99) Calcium 10.0 (8.5-10.1) mg/dl Phosphorus 3.5 (2.5-4.9) mg/dl Magnesium 1.6 L (1.8-2.4) mg/dl Total Bilirubin 0.3 (0.2-1) mg/dl AST 12 L (15-37) U/L ALT 24 (12-78) U/L Alkaline Phosphatase 80 (45-117) U/L Troponin I < 0.015 (0-0.045) ng/ml Total Protein 7.3 (6.4-8.2) gm/dl Albumin 3.7 (3.4-5.0) gm/dl Globulin 3.6 (2.5-4.0) gm/dl Albumin/Globulin Ratio 1.0 (0.9-2) Lipase 96 (73-393) U/L Urine Color Urine Appearance (Clear) Urine pH (4.5-7.5) Ur Specific Earleton (1.000-1.030) Urine Protein (Negative) Urine Glucose (UA) (Negative) Urine Ketones (Negative) Urine Blood (Negative) Urine Nitrite (Negative) Urine Bilirubin (Negative) Urine Urobilinogen (Negative) Ur Leukocyte Esterase (Negative) 12/10/18 12/10/18 12/10/18 Range/Units 15:15 15:21 16:30 WBC (4.8-10.8) K/uL RBC (4.7-6.1) M/uL Hgb (14.0-18.0) g/dL Hct (42-52) % MCV (80-100) fL MCH (25-34) pg MCHC (32-36) g/dL RDW Std Deviation (36.4-46.3) fL RDW Coeff of Zeina (11.5-14.5) % Plt Count (130-400) K/uL MPV (7.4-10.4) fL Immature Gran % (Auto) % Neut % (Auto) % Lymph % (Auto) % Harrison % (Auto) % Eos % (Auto) % Baso % (Auto) % Immature Gran # (Auto) (0.00-0.02) K/uL Neut # (Auto) (1.4-6.5) K/uL Lymph # (Auto) (1.2-3.4) K/uL Harrison # (Auto) (0.11-0.59) K/uL Eos # (Auto) (0-0.5) K/uL Baso # (Auto) (0-0.2) K/uL PT (9.0-12.0) Seconds INR (0.9-1.1) Sodium (136-145) mmol/L Potassium (3.5-5.1) mmol/L Chloride (98-107) mmol/L Carbon Dioxide (21-32) mmol/L Anion Gap (3-11) BUN (7-18) mg/dl Creatinine (0.6-1.4) mg/dl Est Cr Clr Drug Dosing ml/min Est GFR ( Amer) Est GFR (Non-Af Amer) BUN/Creatinine Ratio (10-20) Glucose (70-99) mg/dl POC Glucose 140 H (70-99) Calcium (8.5-10.1) mg/dl Phosphorus Cancelled (2.5-4.9) mg/dl Magnesium Cancelled (1.8-2.4) mg/dl Total Bilirubin (0.2-1) mg/dl AST (15-37) U/L ALT (12-78) U/L Alkaline Phosphatase (45-117) U/L Troponin I (0-0.045) ng/ml Total Protein (6.4-8.2) gm/dl Albumin (3.4-5.0) gm/dl Globulin (2.5-4.0) gm/dl Albumin/Globulin Ratio (0.9-2) Lipase (73-393) U/L Urine Color Yellow Urine Appearance Clear (Clear) Urine pH 5.5 (4.5-7.5) Ur Specific Earleton 1.031 H (1.000-1.030) Urine Protein Negative (Negative) Urine Glucose (UA) Negative (Negative) Urine Ketones Negative (Negative) Urine Blood Negative (Negative) Urine Nitrite Negative (Negative) Urine Bilirubin Negative (Negative) Urine Urobilinogen Negative (Negative) Ur Leukocyte Esterase Negative (Negative) Imaging Data Radiologist's Impression: Radiology results as stated below per my review and the radiologist's interpretation: XR chest 1V portable HISTORY: 73 years-old Male Chest Pain acute atypical chest pain COMPARISON: Chest radiograph 05/18/2016 TECHNIQUE: Portable AP view of the chest FINDINGS: Cardiomediastinal and hilar silhouettes appear unchanged. There is no pneumothorax, pleural effusion, focal airspace consolidation or overt pulmonary edema. Minimal lateral left basilar atelectasis/scarring. Degenerative changes of the shoulders and spine. IMPRESSION: No acute process. The above report was generated using voice recognition software. It may contain grammatical, syntax or spelling errors. Electronically signed by: Tristin Brown M.D. 12/10/2018 3:[address] ANGIOGRAM OF THE BRAIN; CT ANGIOGRAM OF THE NECK CLINICAL HISTORY: Aphasia COMPARISON STUDY: Unenhanced CT of the brain performed the same day 12/10/2018. CT angiogram of the head and neck dated 08/05/2018. MR angiogram of the brain dated 09/10/2014. CT of the chest dated 03/22/2007. TECHNIQUE: Following the IV administration of 119 of Optiray 320, CT angiogram of the head and neck was performed from the aortic arch to the vertex. Images are reviewed in the axial, sagittal, and coronal planes. 3-D MIPS images are created and assessed. IV contrast was administered without complication. All measurements were calculated based on NASCET criteria. A dose lowering technique was utilized adhering to the principles of ALARA. CT DOSE: 1097.75 mGy.cm FINDINGS: Brain parenchyma: There is age-related involutional change noting moderate subcortical and periventricular microangiopathic disease. There is no hemorrhage, mass effect, or evidence of acute territorial ischemia by CT criteria. There is no evidence of enhancing mass lesion on the angiogram phase images. The ventricles, sulci, and cisterns are prominent secondary to involutional change. Schwartz-white matter differentiation is preserved. No extra- axial fluid collection is seen. Right carotid arterial system: The right common carotid artery is widely patent, as are the right internal and external carotid arteries. Soft and calcified plaque within the carotid bulb and proximal right internal carotid artery cause less than 50% luminal narrowing. Left carotid arterial system: The left common carotid artery is patent. There is less than 50% luminal narrowing of the distal common carotid artery secondary to soft plaque. Soft and calcified plaque causes approximately 50% stenosis at the origin of the left internal carotid artery. The remainder of the left internal carotid artery is widely patent, as is the left external carotid artery. Vertebral arteries: The vertebral arteries and neck are patent bilaterally noting left-sided dominance. Subclavian arteries: Widely patent bilaterally. Intracranial vasculature: There is atherosclerotic calcification of the cavernous carotid and vertebral arteries. The internal carotid arteries are patent at the skull base, as are the anterior and middle cerebral arteries bilaterally. The right A1 segment is atretic. The left vertebral artery, the basilar artery, and the posterior cerebral arteries are patent. The left vertebral artery is dominant. The right vertebral artery is diminutive and is occluded distally just below the basilar. There is no aneurysm or high-grade stenosis is seen throughout the intracranial circulation. Jugular veins: Widely patent bilaterally. Dural sinuses: Patent. Lung apices: There is a 5 mm right upper lobe pulmonary nodule seen image #9. This is been present dating back to 2007 and is of doubtful significance. Partially visualized upper lobe lung parenchyma otherwise appears clear. Soft tissues: The visualized pharyngeal soft tissues are normal in appearance noting angiographic phase technique. The oropharyngeal airway appears widely patent. The salivary and thyroid glands are normal in appearance. No cervical lymphadenopathy is seen. Orbits: The bony orbits are grossly intact. There has been banding of the right ocular globe. Bilateral lens implants are noted. Skeletal structures: The skeletal structures are osteopenic. The calvarium appears intact. The cervical spine is maintained noting spondylotic change. Sinuses and mastoids: The paranasal sinuses are clear. The mastoid air cells are well pneumatized. IMPRESSION: 1. There is no hemorrhage, mass effect, or evidence of acute territorial ischemia by CT criteria on this angiographic phase examination. 2. Unchanged CT angiogram of the head and neck from study dated 08/05/2018. 3. 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 4. The intracranial vessels are otherwise patent. 5. There is approximately 50% stenosis at the origin of the left internal carotid artery. 6. No high-grade stenosis is seen within the right carotid arterial system. Electronically signed by: Pk Osuna M.D. 12/10/2018 4:[address] SCAN OF THE BRAIN WITHOUT IV CONTRAST CLINICAL HISTORY: Aphasia. COMPARISON STUDY: CT of the brain dated 08/05/2018 TECHNIQUE: Unenhanced axial CT scan of the brain is performed from the vertex to the skull base. A dose lowering technique was utilized adhering to the principles of ALARA. FINDINGS: Brain parenchyma: There are age-related involutional changes noting moderate subcortical and periventricular microangiopathic change. There is no hemorrhage, mass effect, or evidence of acute territorial ischemia by CT criteria. Schwartz- white matter differentiation is preserved. No extra-axial fluid collection is se en. Ventricles, sulci, cisterns: Prominent secondary to involutional change. Intracranial vasculature: There is atherosclerotic calcification of the cavernous carotid and vertebral arteries. Calvarium: Unremarkable. Sinuses and mastoids: The visualized paranasal sinuses are clear. The mastoid ai r cells are well pneumatized. Orbits: The bony orbits are grossly intact. IMPRESSION: There is no hemorrhage, mass effect, or evidence of acute territorial ischemia by CT criteria. Electronically signed by: Pk Osuna M.D. 12/10/2018 4:17 PM ECG Data Attestation: I personally reviewed and interpreted this ECG as follows: Indication: other (difficulty with speech) Rate (beats per minute): 62 Rhythm: normal sinus Findings: + other (normal axis); no ST depression, no ST elevation and no acute ischemic change Blood Pressure Blood Pressure Findings: Elevated blood pressure Blood Pressure Disposition: elevated BP felt to be situational MDM Narrative The patient is a pleasant 73-year-old gentleman with a past medical history of carotid artery disease with possible TIA remotely on Plavix, hypertension, DM 2 who presents to the emergency department with intermittent aphasia since Sunday in the setting of stressful family situation related to of a family member per hpi. On arrival the patient is in no acute distress, afebrile stable vital signs. At this time the patient speech is fluent without difficulty with word finding. Cerebellar function intact including [id number], alternating palms, [id number]. 5/5 strength and SILT x 4 extremities. Ambulates with steady gait. EKG without overt acute ischemia. Chest x-ray negative for acute process. WBC, H/H, platelets wnl. Chemistry without acidosis. Magnesium 1.6 with repletion provided. LFTs unremarkable. UA negative. CT of the head and neck unchanged from prior study in August demonstrating occlusion of right vertebral artery. Given the patient's history of possible TIAs reasonable to admit the patient for further stroke evaluation including likely MRI. Case was discussed with Dr. Jojo Perera, [facility] hospitalist, who will evaluate the patient for admission. Impression & Plan Aphasia, Hypomagnesemia Discharge Plan Visit Data *Final* Discharge Date/Time: 12/10/18 19:14 Chief Complaint: Stroke/CVA Symptoms Stated Complaint: STROKE ED Provider: Arcenio Akers Discharge Problem: Aphasia, Hypomagnesemia Patient Disposition: Admitted As Inpatient Discharge Instructions Interventions: ED Discharge Assessment Last Done: 12/10/18 19:14 The scribe's documentation has been prepared under my direction and personally reviewed by me in its entirety. I confirm that the note above accurately reflects all work, treatment, procedures, and medical decision making performed by me.
[2018-12-10] MEDS ORDERED: METOPROLOL TARTRATE 1 MG/ML VIAL IV STA (20:13)
[2018-12-10] MEDS ORDERED: ONDANSETRON INJ 2 MG/ML 2 ML VIAL IV PRN (20:16)
[2018-12-10] MEDS ORDERED: ACETAMINOPHEN 325 MG TAB PO PRN (20:16)
[2018-12-10] MEDS ORDERED: MAGNESIUM HYDROXIDE SUSP 30 ML UDC PO PRN (20:16)
[2018-12-10] MEDS ORDERED: PHARMACIST DISCHARGE MED REC CONSULT PRN (20:16)
[2018-12-10] MEDS ORDERED: glipiZIDE ER 2.5 MG TABCR PO SCH (21:00)
[2018-12-10] MEDS ORDERED: LORazepam 0.25 MG/0.5 ML VIAL IV STA (21:02)
--- NOTE | 2018-12-10 22:04 | Magnetic Resonance Report ---
MRI OF THE BRAIN WITHOUT IV CONTRAST CLINICAL HISTORY: Expressive aphasia. COMPARISON STUDY: CT of the brain dated 12/10/2018. MRI of the brain dated 05/18/2016. TECHNIQUE: MRI of the brain was performed utilizing various T1 and T2-weighted sequences in the axial , sagittal, and coronal planes. IV contrast was not administered for this examination. The examinatio n is modestly degraded by motion artifact. FINDINGS: Brain parenchyma: There is age-related involutional change noting mild to moderate subcortical and pe riventricular microangiopathic disease. A small focus of left frontal encephalomalacia is consistent with a remote infarct. Tiny chronic lacunar infarcts are identified in the right thalamus and both ca udate heads. There is no hemorrhage or mass effect. There is no restricted diffusion to suggest acute ischemia. Schwartz-white matter differentiation is preserved. No extra-axial fluid collection is seen. T he cerebellar tonsils are normal in configuration. Ventricles, sulci, and cisterns: Prominent secondary to involutional change. Pituitary and sella: Unremarkable. Intracranial vasculature: Normal flow voids are maintained at the skull base. Orbits: The bony orbits are grossly intact. There are bilateral ocular lens implants and there has be en banding of the right ocular globe. Sinuses and mastoids: Clear. Calvarium: Unremarkable. Cervical cord: Partially visualized cervical spinal cord is normal in morphology and signal intensity . IMPRESSION: No acute intracranial abnormality. Electronically signed by: Pk Osuna M.D. 12/10/2018 10:03 PM
[2018-12-11 06:50] LABS: Estimated Average Glucose 169 mg/dl; Hemoglobin A1C 7.5 % (4.5-5.6)
[2018-12-11] MEDS ORDERED: glipiZIDE ER 2.5 MG TABCR PO SCH (07:00)
[2018-12-11 07:07] LABS: BUN Creatinine Ratio 10.3 (10-20); Calcium 9.6 mg/dl (8.5-10.1); Creatinine Clr Calc Pharmacy 73.9 ml/min; Est GFR (African American) 74.1; Est GFR (Non-African American) 63.9; Magnesium 2.1 mg/dl (1.8-2.4)
[2018-12-11] MEDS ORDERED: CHOLECALCIFEROL 1,000 UNITS TAB PO SCH (09:00)
[2018-12-11] MEDS ORDERED: PANTOprazole 40 MG TAB PO SCH (09:00)
[2018-12-11] MEDS ORDERED: CLOPIDOGREL BISULFATE 75 MG TAB PO SCH (09:00)
[2018-12-11] MEDS ORDERED: LATANOPROST 0.005% OP SOLN 2.5 ML BTL OPB SCH (09:00)
[2018-12-11] MEDS ORDERED: AMLODIPINE BESYLATE 5 MG TAB PO SCH (09:00)
[2018-12-11] MEDS ORDERED: LISINOPRIL/HCTZ 20/12.5MG 1 TAB TAB PO SCH (09:00)
--- NOTE | 2018-12-11 14:01 | Family Medicine Progress Note ---
Date of Service December 11, 2018 Assessment & Plan (1) Cerebrovascular disease: 73-year-old male with past medical history of hypertension, type 2 diabetes, memory loss, TIA presents with aphasia. 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 Does describe having recent history of short-term memory loss. He also describes being unsteady on his feet. He denies numbness or weakness of the upper or lower extremities. His is present. She denies facial droop, but confirms that he has had significant short-term memory loss. Review of Systems Review of Systems: All systems reviewed & are unremarkable except as noted in HPI & below Physical Exam Constitutional: WD/WN, vitals as above Eyes: PERRL, conjunctivae normal, anicteric sclerae ENMT: external ear and nose normal, oropharynx normal Neck: trachea midline, no thyromegaly Respiratory: normal respiratory effort, lungs clear to auscultation Cardiovascular: RRR, no murmur, no edema Gastrointestinal (Abdomen): normal bowel sounds, soft, nontender, no hepatosplenomegaly Musculoskeletal: no cyanosis or clubbing, extremities motor strength 5/5 Skin: no rashes, warm and dry Neurologic: PERRL, EOMI, accommodation nl, no face palsy, no dysarthria CN's II-XI intact bilaterally, awake and + confused Speech / Cognition: + abnormal cognition (Short-term memory deficit); normal speech, no expressive aphasia and no receptive aphasia Motor/Sensory: normal movement and no sensory deficit Gait: no ataxic gait Positive Romberg test Psychiatric: A+Ox3, euthymic affect Results & Data Vital Signs (Past 12 Hours) Vital Signs Temp Pulse Pulse Resp BP Pulse Ox 12/11/18 11:26 36.9 C 64 19 129/76 94 12/11/18 08:00 69 12/11/18 06:59 36.4 C L 71 19 138/82 96 12/11/18 04:00 36.7 C 67 20 149/90 H 96 Resident Activity Tracking Resident Involvement: Resident Care Provided Care Provided: Adult Hospital Medicine
--- NOTE | 2018-12-11 15:32 | Neurology Consultation ---
Date of Consultation December 11, 2018 Assessment & Plan (1) Aphasia: 1. MRI - no acute findings 2. CTA neck - complete occlusion of distal right vert, 50% left ICA 3. optimize HTN, HLD, DM LDL <70 4. TTE- pending 5. out patient ZIO 6. concern for MS change as outpatient will further evaluate 7. dual antiplatlet therapy plavix 75 mg and aspirin 81 mg for 21-days 8. outpatient referral to vascular for further management of vert occlusion follow up with neurology 4-6 weeks Guera Osborne PAC schedule Supervising Physician Co-Signing Physician Notes I have seen and discussed above patient with Dr Red Patton. I agree with Guera Osborne PA-C as noted below. Patient was seen and examined. No family at bedside. Patient reports transient speech difficulty and word finding difficulty which last ~18 hours. He states symptoms have essentiallt resolved. Denies palpitations. No chest pain. Denies numbness or weakness. On examine he has no dysarthria . Comprehension is intact. MRI brain reviewed and shows generalized volume loss. No acute stroke. CTA head and neck reviewed which shows moderate left ICA stenosis. Possible TIA. Recommend dual antiplatlet therapy, ASA 81 mg daily and Plavix 75 mg daily for 21-days then continue Plavix 75 mg daily. Recommend high intensity statin. Recommend Zio patch as outpatient. Recommend outpatient vascular referral for ICA stenosis. Please call with any further questions or concerns. History of Present Illness Reason for Consultation: expressive aphasia Requesting Physician: Malcolm Palumbo DO Attending Physician: Malcolm Palumbo DO History of Present Illness Nav is a 73 year old who had word finding issues that lasted several hours. He had a very stressful week for his family. His grandson graduated on Sunday, so there was a lot of activity related to this event, and his nephew committed suicide on and the was also Sunday. On Sunday, he knew what he wanted to say, but the words and sounds coming out of his mouth were not what he intended alot of nonsense words. It persisted throughout the day and improved on Sunday but was still not himself on Sunday. He tried to see his PCP but could not get an appt until Sunday, so he saw another physician and was directed to the ED. He states that his memory since that time has not been his usual and he had a slight headache, which is unusual for him. He is not sure if he had a headache during the episode or not. He has been on plavix since the last time he had what was termed a TIA in 2016. He does admit that at times he forgets his HS metformin and glipizide dosing. denies CP, SOB, abdominal pain, one side weakness, numbness tingling, no current headache, N, V, facial droop, current slurred speech. Allergies Allergy/AdvReac Type Severity Reaction Status Date / Time No Known Allergies Allergy Unverified 12/10/18 15:35 Home Medications Home Medications Medication Instructions Recorded Confirmed Type amlodipine [Norvasc] 5 mg PO DAILY 12/10/18 12/10/18 History cholecalciferol (vitamin D3) 2,000 unit PO DAILY 12/10/18 12/10/18 History [Vitamin D3] clopidogrel [Plavix] 75 mg PO DAILY 12/10/18 12/10/18 History glipizide [Glucotrol XL] 10 mg PO QPM 12/10/18 12/10/18 History latanoprost [Xalatan] 1 drp OPB DAILY 12/10/18 12/10/18 History lisinopril-hydrochlorothiazide 1 tab PO DAILY 12/10/18 12/10/18 History [Zestoretic] metformin [Glucophage] 1,000 mg PO BID 12/10/18 12/10/18 History sildenafil [Viagra] 50 mg PO .PRN 12/10/18 12/10/18 History aspirin 81 mg PO DAILY 31 Days #31 tab 12/11/18 Rx atorvastatin 40 mg PO DAILY 31 Days #31 tab 12/11/18 Rx pantoprazole [Protonix] 40 mg PO DAILY 31 Days #31 tab 12/11/18 Rx Patient History Medical History TIA (transient ischemic attack) (Acute) GERD (gastroesophageal reflux disease) (Chronic) HTN (hypertension) (Chronic) Family History Mother Stroke Father Stroke Social History Preferred Language: Vietnamese Communication Ability: Effective Book Solicitor Required: No Beliefs That Will Affect Care: None Current Living Situation: Spouse Feels Safe at Home: Yes Smoking Status: Never smoker Hx Alcohol Use: No Hx Substance Use: No Physical Exam Physical Exam: Physical Exam: Constitutional: appearance over nourished, healthy Ears, Nose, Mouth and Throat: mucous membranes moist, no injection and skin normal, eyes normal Cardiovascular: normal S-1 and S-2 and regular rate and rhythm Respiratory: clear to auscultation (CTA) and no rales, ronchi or wheeze Musculoskeletal: no peripheral edema and good distal pulses Skin: no stigmata of neurocutaneous disease noted and normal and intact Eyes: extraocular muscles intact (EOMI) and pupils equal, round and reactive to light (PERRL) NEUROLOGIC EXAMINATION: Mental status: Alert and interactive Oriented 2018, November, spring/summer, president Marti, [facility] Oriented to person Speech fluent with no evidence of aphasia, can say no ifs and buts, points to ceiling closes eyes sticks out tongue Cranial Nerves smile eye brow raise symmetric tongue midline Reflexes: Deep tendon reflexes were symmetrical and graded 2/5flexor. Sensory: GT proprioception intact bilaterally light touch, vibration intact Coordination: Romberg + Gait/Stance: Posture normal. Gait normal: with steady with steps, base, tandem gait. Motor: Negative for pronator drift of out stretched arms with eyes closed. Strength: biceps triceps hand quahogger 5/5, hip flex patellar, plantar 5/5 bilaterally Results & Data Vital Signs (Past 12 Hours) Vital Signs Temp Pulse Pulse Resp BP Pulse Ox 12/11/18 11:26 36.9 C 64 19 129/76 94 12/11/18 08:00 69 12/11/18 06:59 36.4 C L 71 19 138/82 96 12/11/18 04:00 36.7 C 67 20 149/90 H 96 Laboratory Results Abnormal lab results 12/10/18 12/10/18 12/11/18 Range/Units 16:30 20:23 06:27 Glucose 134 H (70-99) mg/dl POC Glucose 128 H (70-99) Hemoglobin A1c (4.5-5.6) % Ur Specific [place] 1.031 H (1.000-1.030) 12/11/18 12/11/18 12/11/18 Range/Units 06:27 07:11 11:27 Glucose (70-99) mg/dl POC Glucose 159 H 123 H (70-99) Hemoglobin A1c 7.5 H (4.5-5.6) % Ur Specific [place] (1.000-1.030) Diagnostic Findings CXR-Cardiomediastinal and hilar silhouettes appear unchanged. There is no pneumothorax, pleural effusion, focal airspace consolidation or overt pulmonary edema. Minimal lateral left basilar atelectasis/scarring. Degenerative changes of the shoulders and spine. CT head-There is no hemorrhage, mass effect, or evidence of acute territorial ischemia by CT criteria. CTA head-There is no hemorrhage, mass effect, or evidence of acute territorial ischemia by CT criteria on this angiographic phase examination. Unchanged CT angiogram of the head and neck from study dated 08/05/2018. 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 The intracranial vessels are otherwise patent. There is approximately 50% stenosis at the origin of the left internal carotid artery. No high-grade stenosis is seen within the right carotid arterial system.
[2018-12-11] MEDS ORDERED: ATORVASTATIN 40 MG TAB PO SCH (15:45)
[2018-12-11] MEDS ORDERED: STROKE PATIENT DISCHARGE STA (17:29)
--- NOTE | 2018-12-11 18:16 | Pharmacy Report ---
Pharmacist Stroke Counseling - Date of Service December 11, 2018 - Scope: Pharmacy has been consulted to provide medication discharge counseling for this patient admitted with [transient ischemic attack] as per the Pharmacist Discharge Counseling for Stroke Patients Protocol. - Medications on Discharge: Home Medications Medication Instructions Recorded Confirmed amlodipine [Norvasc] 5 mg PO DAILY 12/10/18 12/10/18 cholecalciferol (vitamin D3) 2,000 unit PO DAILY 12/10/18 12/10/18 [Vitamin D3] clopidogrel [Plavix] 75 mg PO DAILY 12/10/18 12/10/18 glipizide [Glucotrol XL] 10 mg PO QPM 12/10/18 12/10/18 latanoprost [Xalatan] 1 drp OPB DAILY 12/10/18 12/10/18 lisinopril-hydrochlorothiazide 1 tab PO DAILY 12/10/18 12/10/18 [Zestoretic] metformin [Glucophage] 1,000 mg PO BID 12/10/18 12/10/18 sildenafil [Viagra] 50 mg PO .PRN 12/10/18 12/10/18 New Rx's Medication Instructions Recorded aspirin 81 mg PO DAILY 31 Days #31 tab 12/11/18 atorvastatin 40 mg PO DAILY 31 Days #31 tab 12/11/18 pantoprazole [Protonix] 40 mg PO DAILY 31 Days #31 tab 12/11/18 - Action: The above medications, specifically ones for stroke treatment/prophylaxis, have been reviewed in detail with the patient and/or patient wine sales representative(s) prior to discharge. This includes indication, common adverse reactions, drug interactions, and medication administration. Medication counseling has been employed using the teach-back method to ensure understanding. - Outcome: The patient and/or patient wine sales representative(s) have demonstrated understanding of the medications. Please note, they are aware that the pharmacist will call them within 72 hours post-discharge to confirm that the appropriate medications are being taken and answer any further medication related questions the patient might have at that time. Contact information Individual to be contacted: Patient Relationship to patient (if applicable): n/a Phone number: [phone] Best time to call: anytime Additional comments: Patient admitted with possible TIA symptoms. Reviewed new medications with him as well as reviewed monitoring/side effects with him. Patient not familiar with names of his medications, as his is the one who manages them for him. She was not present on interview but told him that he will receive a discharge packet with the names of all of the medications he is to be on. He said that he will go through them with his together. Told him we will follow up with him in a couple days with telephone call. Thank you for allowing pharmacy to be involved in the care of this patient. Please call [phone] or [phone] with any additional questions
--- NOTE | 2018-12-11 18:27 | Discharge Summary ---
Date of Service December 11, 2018 Admission HPI Per Admitting Provider 73 y/o M c/o word finding issues. Pt states that last week was very stressful for his family. His grandson graduated on Sunday, so there was a lot of activity related to this event, however pt's nephew committed suicide on and the was also Sunday. Pt had a lot of stress related to this event. On Sunday, pt found that he knew what he wanted to say, but the words and sounds coming out of his mouth were not what he intended. His states that he was saying nonsense words. No slurring per se, but just not making sense. This persisted throughout the day. It was improved on Sunday, but still n ot at his usual. He tried to see his PCP but could not get an appt until Sunday, so he saw another physician and was directed to the ED. Pt states he never felt confused, just could not make his words match his intended speech. He states that his memory since that time has not been his usual. At present, he has a slight headache, which is unusual for him. He is not sure if he had a headache during the episode or not. No vision issues now, but cannot remember if he did then. states that he never had any issues with use of UE/LE that she noted and he is fine from that standpoint currently. Pt states that he can present his thoughts, but he has to try more to make sure it is correct than he would normally have to. He states that he does occasionally make an incorrect word or sound, but this is nothing like it was on Sunday. Pt takes plavix. He denies missing doses or being out of medication recently. He does admit that at times he forgets his HS metformin and glipizide dosing. There was some concern on Sunday that his BS was high or low, but it was never checked. Pt has been on plavix since 2016 when was dx with TIA. Sx at that time involved an inability to walk in a straight line, but rather was walking in a [place]. No speech/word finding issues with that event. Pt denies fever, SOB, chest pain, abd pain, n/v/c/d, LE pain or swelling. Admission Exam Per Admitting Provider Constitutional: WD/WN, vitals as above Eyes: normal visual riley by confrontation and + anicteric sclerae Neck: normal visual inspection and trachea midline Respiratory: normal respiratory effort, lungs clear to auscultation Cardiovascular: Rate/Rhythm: regular rate and regular rhythm Gastrointestinal (Abdomen): Inspection/Auscultation: abdomen not distended Percussion/Palpation: abdomen soft; abdomen nontender Musculoskeletal: Head/Neck/Chest: normocephalic and head atraumatic negative for edema, peripheral pulses intact Skin: no rashes, warm and dry Neurologic: CN's II-XI intact bilaterally and awake; not confused Speech / Cognition: normal speech = strength 5/5 performance improvement analyst = LE strength against resistance b/l in all planes Psychiatric: A+Ox3, euthymic affect Speech: normal rate/rhythm/volume of speech Thought Process: linear/logical thought process; thought process not incoherent and no word salad Principal Diagnosis TIA Discharge Exam Constitutional: WD/WN, vitals as above Eyes: PERRL, conjunctivae normal, anicteric sclerae ENMT: external ear and nose normal, oropharynx normal Neck: trachea midline, no thyromegaly Respiratory: normal respiratory effort, lungs clear to auscultation Cardiovascular: RRR, no murmur, no edema Gastrointestinal (Abdomen): normal bowel sounds, soft, nontender, no hepatosplenomegaly Musculoskeletal: no cyanosis or clubbing, extremities motor strength 5/5 Skin: no rashes, warm and dry Neurologic: PERRL, EOMI, accommodation nl, no face palsy, no dysarthria CN's II-XI intact bilaterally, awake and + confused Speech / Cognition: + abnormal cognition (Short-term memory deficit); normal speech, no expressive aphasia and no receptive aphasia Motor/Sensory: normal movement and no sensory deficit Gait: no ataxic gait Positive Romberg test Psychiatric: A+Ox3, euthymic affect Discharge Data Allergies Allergy/AdvReac Type Severity Reaction Status Date / Time No Known Allergies Allergy Unverified 12/10/18 15:35 Consultations 12/10/18 17:49 ED Decision to Admit Stat 12/10/18 20:16 Consult Case Management - Discharge Planning Routine Consult Case Management - Discharge Planning Routine Consult Neurology Routine Ordered Studies 12/10/18 15:16 CT angio head w con Stat CT angio neck with con Stat CT head/brain wo con Stat 12/10/18 20:16 MR brain wo con Routine [facility] [place], [place] [phone] Magnetic Resonance Report Patient: ATA PAVONAdmit Date: 12/10/18 MR#: [id number]: [address] Acct ID:[id number]: [facility] Zip: [place] [address] Age: 73Location: 2N Sex: M Room[facility]Bed: [facility] Att Phy: Jojo Perera, DODiagnosis: EXPRESSIVE APHASIA Hilda Phy: Sarabjit Erickson, DOService Date: 12/10/18 Fam Phy: Leilani Alan MDInterpreting Phy: Pk Osuna MD Admit Phy: Jojo Perera DO Ordering Phy: Jojo Perera DO cc: ~ MRI OF THE BRAIN WITHOUT IV CONTRAST CLINICAL HISTORY: Expressive aphasia. COMPARISON STUDY: CT of the brain dated 12/10/2018. MRI of the brain dated 05/18/2016. TECHNIQUE: MRI of the brain was performed utilizing various T1 and T2-weighted sequences in the axial, sagittal, and coronal planes. IV contrast was not administered for this examination. The examination is modestly degraded by motion artifact. FINDINGS: Brain parenchyma: There is age-related involutional change noting mild to moderate subcortical and periventricular microangiopathic disease. A small focus of left frontal encephalomalacia is consistent with a remote infarct. Tiny chronic lacunar infarcts are identified in the right thalamus and both caudate heads. There is no hemorrhage or mass effect. There is no restricted diffusion to suggest acute ischemia. Schwartz-white matter differentiation is preserved. No extra-axial fluid collection is seen. The cerebellar tonsils are normal in configuration. Ventricles, sulci, and cisterns: Prominent secondary to involutional change. Pituitary and sella: Unremarkable. Intracranial vasculature: Normal flow voids are maintained at the skull base. Orbits: The bony orbits are grossly intact. There are bilateral ocular lens implants and there has been banding of the right ocular globe. Sinuses and mastoids: Clear. Calvarium: Unremarkable. Cervical cord: Partially visualized cervical spinal cord is normal in morphology and signal intensity. IMPRESSION: No acute intracranial abnormality. Electronically signed by: Pk Osuna M.D. 12/10/2018 10:03 PM Dictated: 12/10/182199 Transcribed: 12/10/182199 [facility] [place] [phone] CT Scan Report Patient: ATA PAVONAdmit Date: 12/10/18 MR#: [id number]: [address] Acct ID:[id number]: [facility] Zip: [place] [id number] Age: 73Location: ED Sex: M Room/Bed: Att Phy: Diagnosis: STROKE SYMPTOMS Hilda Phy: Sarabjit Erickson, DOService Date: 12/10/18 Fam Phy: Leilani Alan MDInterpreting Phy: Pk Osuna MD Admit Phy: Ordering Phy: Arcenio Akers M.D. cc: ~ CT SCAN OF THE BRAIN WITHOUT IV CONTRAST CLINICAL HISTORY: Aphasia. COMPARISON STUDY: CT of the brain dated 08/05/2018 TECHNIQUE: Unenhanced axial CT scan of the brain is performed from the vertex to the skull base. A dose lowering technique was utilized adhering to the principles of ALARA. FINDINGS: Brain parenchyma: There are age-related involutional changes noting moderate subcortical and periventricular microangiopathic change. There is no hemorrhage, mass effect, or evidence of acute territorial ischemia by CT criteria. Schwartz- white matter differentiation is preserved. No extra-axial fluid collection is seen. Ventricles, sulci, cisterns: Prominent secondary to involutional change. Intracranial vasculature: There is atherosclerotic calcification of the cavernous carotid and vertebral arteries. Calvarium: Unremarkable. Sinuses and mastoids: The visualized paranasal sinuses are clear. The mastoid air cells are well pneumatized. Orbits: The bony orbits are grossly intact. IMPRESSION: There is no hemorrhage, mass effect, or evidence of acute territorial ischemia by CT criteria. Electronically signed by: Pk Osuna M.D. 12/10/2018 4:17 PM Dictated: 12/10/184 Transcribed: 12/10/184 [facility] [place] [phone] CT Scan Report Patient: ATA PAVONAdmit Date: 12/10/18 MR#: [id number]: [address] Acct ID:[id number]: Date: [facility] Zip: [place] [address] Age: 73Location: ED Sex: M Room/Bed: Att Phy: Diagnosis: STROKE SYMPTOMS Hilda Phy: Sarabjit Erickson, DOService Date: 12/10/18 Fam Phy: Leilani Alan MDInterpreting Phy: Pk Osuna MD Admit Phy: Ordering Phy: Arcenio Akers M.D. cc: ~ CT ANGIOGRAM OF THE BRAIN; CT ANGIOGRAM OF THE NECK CLINICAL HISTORY: Aphasia COMPARISON STUDY: Unenhanced CT of the brain performed the same day 12/10/2018. CT angiogram of the head and neck dated 08/05/2018. MR angiogram of the brain dated 09/10/2014. CT of the chest dated 03/22/2007. TECHNIQUE: Following the IV administration of 119 of Optiray 320, CT angiogram of the head and neck was performed from the aortic arch to the vertex. Images are reviewed in the axial, sagittal, and coronal planes. 3-D MIPS images are created and assessed. IV contrast was administered without complication. All measurements were calculated based on NASCET criteria. A dose lowering technique was utilized adhering to the principles of ALARA. CT DOSE: 1097.75 mGy.cm FINDINGS: Brain parenchyma: There is age-related involutional change noting moderate subcortical and periventricular microangiopathic disease. There is no hemorrhage, mass effect, or evidence of acute territorial ischemia by CT criteria. There is no evidence of enhancing mass lesion on the angiogram phase images. The ventricles, sulci, and cisterns are prominent secondary to involutional change. Schwartz-white matter differentiation is preserved. No extra- axial fluid collection is seen. Right carotid arterial system: The right common carotid artery is widely patent, as are the right internal and external carotid arteries. Soft and calcified plaque within the carotid bulb and proximal right internal carotid artery cause less than 50% luminal narrowing. Left carotid arterial system: The left common carotid artery is patent. There is less than 50% luminal narrowing of the distal common carotid artery secondary to soft plaque. Soft and calcified plaque causes approximately 50% stenosis at the origin of the left internal carotid artery. The remainder of the left internal carotid artery is widely patent, as is the left external carotid artery. Vertebral arteries: The vertebral arteries and neck are patent bilaterally noting left-sided dominance. Subclavian arteries: Widely patent bilaterally. Intracranial vasculature: There is atherosclerotic calcification of the cavernous carotid and vertebral arteries. The internal carotid arteries are patent at the skull base, as are the anterior and middle cerebral arteries bilaterally. The right A1 segment is atretic. The left vertebral artery, the basilar artery, and the posterior cerebral arteries are patent. The left vertebral artery is dominant. The right vertebral artery is diminutive and is occluded distally just below the basilar. There is no aneurysm or high-grade stenosis is seen throughout the intracranial circulation. Jugular veins: Widely patent bilaterally. Dural sinuses: Patent. Lung apices: There is a 5 mm right upper lobe pulmonary nodule seen image #9. This is been present dating back to 2006 and is of doubtful significance. Partially visualized upper lobe lung parenchyma otherwise appears clear. Soft tissues: The visualized pharyngeal soft tissues are normal in appearance noting angiographic phase technique. The oropharyngeal airway appears widely patent. The salivary and thyroid glands are normal in appearance. No cervical lymphadenopathy is seen. Orbits: The bony orbits are grossly intact. There has been banding of the right ocular globe. Bilateral lens implants are noted. Skeletal structures: The skeletal structures are osteopenic. The calvarium appears intact. The cervical spine is maintained noting spondylotic change. Sinuses and mastoids: The paranasal sinuses are clear. The mastoid air cells are well pneumatized. IMPRESSION: 1. There is no hemorrhage, mass effect, or evidence of acute territorial ischemia by CT criteria on this angiographic phase examination. 2. Unchanged CT angiogram of the head and neck from study dated 08/05/2018. 3. 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 4. The intracranial vessels are otherwise patent. 5. There is approximately 50% stenosis at the origin of the left internal carotid artery. 6. No high-grade stenosis is seen within the right carotid arterial system. Electronically signed by: Pk Osuna M.D. 12/10/2018 4:31 PM Dictated: 12/10/18 1617 Transcribed: 12/10/18 1617 [facility] [place] [place] [phone] CT Scan Report Patient: ATA PAVONAdmit Date: 12/10/18 MR#: [id number]: [address] Acct ID:[id number]: Date: 1945[facility] Zip: [place] [address] Age: 73Location: ED Sex: M Room/Bed: Att Phy: Diagnosis: STROKE SYMPTOMS Hilda Phy: Sarabjit Erickson, DOService Date: 12/10/18 Fam Phy: Leilani Alan MDInterpreting Phy: Pk Osuna MD Admit Phy: Ordering Phy: Arcenio Akers M.D. cc: ~ CT ANGIOGRAM OF THE BRAIN; CT ANGIOGRAM OF THE NECK CLINICAL HISTORY: Aphasia COMPARISON STUDY: Unenhanced CT of the brain performed the same day 12/10/2018. CT angiogram of the head and neck dated 08/05/2018. MR angiogram of the brain dated 09/10/2014. CT of the chest dated 03/22/2007. TECHNIQUE: Following the IV administration of 119 of Optiray 320, CT angiogram of the head and neck was performed from the aortic arch to the vertex. Images are reviewed in the axial, sagittal, and coronal planes. 3-D MIPS images are created and assessed. IV contrast was administered without complication. All measurements were calculated based on NASCET criteria. A dose lowering technique was utilized adhering to the principles of ALARA. CT DOSE: 1097.75 mGy.cm FINDINGS: Brain parenchyma: There is age-related involutional change noting moderate subcortical and periventricular microangiopathic disease. There is no hemorrhage, mass effect, or evidence of acute territorial ischemia by CT criteria. There is no evidence of enhancing mass lesion on the angiogram phase images. The ventricles, sulci, and cisterns are prominent secondary to involutional change. Schwartz-white matter differentiation is preserved. No extra- axial fluid collection is seen. Right carotid arterial system: The right common carotid artery is widely patent, as are the right internal and external carotid arteries. Soft and calcified plaque within the carotid bulb and proximal right internal carotid artery cause less than 50% luminal narrowing. Left carotid arterial system: The left common carotid artery is patent. There is less than 50% luminal narrowing of the distal common carotid artery secondary to soft plaque. Soft and calcified plaque causes approximately 50% stenosis at the origin of the left internal carotid artery. The remainder of the left internal carotid artery is widely patent, as is the left external carotid artery. Vertebral arteries: The vertebral arteries and neck are patent bilaterally noting left-sided dominance. Subclavian arteries: Widely patent bilaterally. Intracranial vasculature: There is atherosclerotic calcification of the cavernous carotid and vertebral arteries. The internal carotid arteries are patent at the skull base, as are the anterior and middle cerebral arteries bilaterally. The right A1 segment is atretic. The left vertebral artery, the basilar artery, and the posterior cerebral arteries are patent. The left vertebral artery is dominant. The right vertebral artery is diminutive and is occluded distally just below the basilar. There is no aneurysm or high-grade stenosis is seen throughout the intracranial circulation. Jugular veins: Widely patent bilaterally. Dural sinuses: Patent. Lung apices: There is a 5 mm right upper lobe pulmonary nodule seen image #9. This is been present dating back to 2006 and is of doubtful significance. Partially visualized upper lobe lung parenchyma otherwise appears clear. Soft tissues: The visualized pharyngeal soft tissues are normal in appearance noting angiographic phase technique. The oropharyngeal airway appears widely patent. The salivary and thyroid glands are normal in appearance. No cervical lymphadenopathy is seen. Orbits: The bony orbits are grossly intact. There has been banding of the right ocular globe. Bilateral lens implants are noted. Skeletal structures: The skeletal structures are osteopenic. The calvarium appears intact. The cervical spine is maintained noting spondylotic change. Sinuses and mastoids: The paranasal sinuses are clear. The mastoid air cells are well pneumatized. IMPRESSION: 1. There is no hemorrhage, mass effect, or evidence of acute territorial ischemia by CT criteria on this angiographic phase examination. 2. Unchanged CT angiogram of the head and neck from study dated 08/05/2018. 3. 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 4. The intracranial vessels are otherwise patent. 5. There is approximately 50% stenosis at the origin of the left internal carotid artery. 6. No high-grade stenosis is seen within the right carotid arterial system. Electronically signed by: Pk Osuna M.D. 12/10/2018 4:31 PM Dictated: 12/10/18 1617 Transcribed: 12/10/18 1617 Hospital Course (1) Cerebrovascular disease: 73-year-old male with past medical history of hypertension, type 2 diabetes, memory loss, TIA presents with expressive aphasia for approximately 2 days. Symptoms had resolved at the time of admission. 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, distal right vertebral occlusion unchanged from scan on 08/05/2017 MRI no acute findings Neurology consulted Appreciate the following recommendationscontinue clopidogrel, add aspirin and atorvastatin 40 mg, transthoracic echo outpatient, Holter monitor outpatient, vascular surgery follow-up Hypertension Continue amlodipine, lisinopril/hydrochlorothiazide Type 2 diabetes A1c was 7.5 On metformin and glipizide, provided extensive education on importance of controlled diabetes and prevention of vascular disease Starting the patient on atorvastatin 40 mg daily GERD Continue Protonix (2) DVT prophylaxis: (3) Aphasia: (4) Hypomagnesemia: (5) Diabetes type 2, controlled: (6) Hypertension: Total Time Total Time Spent Total Time Spent (In Minutes): >30 Discharge Plan Discharge Items Patient Disposition: Home - Self-Care Reason For Visit: EXPRESSIVE APHASIA Discharge Diagnosis: TIA Discharge Goals: Prevent disease and Screening Activity: Resume your previous activity Non-emergency contact: Primary Care Provider Call non-emergency contact if: you have any medication questions Follow-up/Referrals: Sarabjit Erickson, [Primary Care Provider] - Diet: Heart Healthy Addtl Provider Instructions: Your symptoms are likely secondary to a transient ischemic attack. This is what we call a mini stroke. There was no evidence of damage to the brain on imaging, but your symptoms were likely due to temporary blockage of vessels. In addition, we saw that you have stable vascular disease. The test that we did included a CT/CTA/MRI of the head and neck. You were found to have some chronic blockages of the vessels in your neck. They have not progressed compared to previous imaging. As we discussed, the most important ways that you can prevent future events is to control your hypertension and your diabetes. In addition, we would like you to start a medication called atorvastatin. This medication is a cholesterol-lowering medication. This is important to help prevent further blockages in your vessels. We also need you to take an aspirin in addition to the clopidogrel. You are currently taking a medicine for your heartburn called Omeprazole which has an interaction with your blood thinner. Because of this, we are switching you to a similar medication called pantoprazole which does not interact with the blood thinner. As we discussed, the best way to control your diabetes is through diet and exercise. We recommend decreasing the amount of carbohydrates that you consume. The best way to see how this affects your glucose throughout the day is to take your blood sugar 2 hours following a meal. This will help you calibrate your diet. Your hemoglobin A1c which is a blood test to test for diabetes was elevated. We are having our nurse care coordinators establish appointments with your primary care doctor. There are two test that need to be done that were not completed at the hospital. Those tests to include: An echocardiogram to look at your heart function and a Holter monitor to look at the electrical activity of your heart. Sometimes strokes and mini strokes can be due to issues with the heart. Prescriptions: New atorvastatin 40 mg tablet 40 mg PO DAILY 31 Days Qty: 31 RF: 3 aspirin 81 mg tablet,delayed release (DR/EC) 81 mg PO DAILY 31 Days Qty: 31 RF: 3 pantoprazole [Protonix] 40 mg tablet,delayed release (DR/EC) 40 mg PO DAILY 31 Days Qty: 31 RF: 3 Continued latanoprost [Xalatan] 0.005 % drops 1 drp OPB DAILY RF: 0 lisinopril-hydrochlorothiazide [Zestoretic] 20-12.5 mg tablet 1 tab PO DAILY RF: 0 glipizide [Glucotrol XL] 10 mg tablet extended release 24hr 10 mg PO QPM RF: 0 clopidogrel [Plavix] 75 mg tablet 75 mg PO DAILY RF: 0 amlodipine [Norvasc] 5 mg tablet 5 mg PO DAILY RF: 0 sildenafil [Viagra] 100 mg tablet 50 mg PO .PRN RF: 0 metformin [Glucophage] 1,000 mg tablet 1,000 mg PO BID RF: 0 cholecalciferol (vitamin D3) [Vitamin D3] 2,000 unit Tablet 2,000 unit PO DAILY RF: 0 Discontinued omeprazole 20 mg capsule,delayed release(DR/EC) 20 mg PO DAILY RF: 0 Stand-Alone Forms: [facility] Discharge Orders: Discharge Order (Routine); Ordered 12/11/18 Ordered By: Tacho Dago Admission Data Admit Date/Time: 12/10/18 18:10 Attending Provider: Malcolm Palumbo Admit Provider: Jojo Perera Primary Care Provider: Sarabjit Erickson. Other Providers: Jojo Perera ; Segun Riley Service: Telemetry Medical Other Interventions: Discharge Summary Assessment (RN) Last Done: 12/11/18 17:38 DC Date/Time DO NOT enter until pt leaves facility: 12/11/18 18:15 Supervising Physician Co-Signing Physician Notes I personally examined the patient and verified all obrien points of history and exam, discussed case, and agree with decision making with Dr Loza. Feeling better. Speech improved. Case discussed with neurology, input greatly appreciated. Vitals noted, in general he is awake and alert pleasant no distress. HEENT normocephalic atraumatic mucous members moist. Breathing unlabored no accessory muscle use good effort. Skin shows no rashes no pallor or icterus. Neuro exam as above. Studies and laboratories as above. TIA with expressive aphasiaappears most likely to have been small vessel disease in the brain, main treatment will be modifying risk factors. Follow-up blood pressure, add statin for plaque stabilization (risks and benefits discussed), tighter sugar control (recommended less simple/starchy carbohydrates and following up on this by checking 2-hour postprandial glucoses with a goal of less than 150), outpatient vascular eval in regards to the carotid stenosis, echo and Holter monitor for completeness. Stable for home. Resident Activity Tracking Resident Involvement: Resident Care Provided Care Provided: Adult Hospital Medicine
--- NOTE | 2018-12-13 15:48 | Pharmacy Report ---
Pharmacist Post D/C Phone Note - Phone Note: Date of phone call: December 13, 2018. Individual with whom pharmacist spoke to: , MARY PAVON The following questions were reviewed during the phone call with responses listed below each: Can you tell me the medications that you are currently taking as well as when and how you take each medication? -See Table Below When have you missed any doses of your medications? - Denies; takes most medications in the AM. helps patient to manage Rx What side effects are you having from your medications, specifically, the new medications you were started on? - Denies at this time What questions do you have about your medications? - Questioned duration of dual anti-platelet therapy, rationale for statin therapy with LDL <100, and PPI change What problems are you having obtaining your medications? - Denies any issues When is your next appointment with your primary care doctor? - Scheduled 12/18/18 Additional comments: * Spoke with patient's , who manages his Rx per his request * Explained therapy with aspirin and Plavix (he was on this prior to admission) only for 21 days, then he is to continue Plavix only. was concerned about bleeding risk with 2 anti-platelet medications. * Explained pleiotropic benefits of Lipitor and that statins strongly recommended for recurrent stroke prevention. Understands to monitor for s/sx myalgia, talk with PCP if any issues. Patient has apparently never been on statin before. * Patient rarely uses Advil prn - advised to avoid NSAID's and use Tylenol. Discuss with PCP if Tylenol ineffective. * Previously took omeprazole with Plavix - explained potential therapeutic failure of Plavix since omeprazole decr' [id number] metabolism of Plavix into active drug - potential reason for recent TIA. Protonix apparently does not have this interaction. Patient with reported severe GERD - unable to stop PPI. As per the Pharmacist Discharge Counseling for Stroke Patients Protocol, this phone call has been completed within 72 hours of discharge. Thank you for allowing us to be involved in the care of this patient. - Home Medications: Home Medications Medication Instructions Recorded Confirmed amlodipine [Norvasc] 5 mg PO DAILY 12/10/18 12/12/18 cholecalciferol (vitamin D3) 2,000 unit PO DAILY 12/10/18 12/12/18 [Vitamin D3] clopidogrel [Plavix] 75 mg PO DAILY 12/10/18 12/12/18 glipizide [Glucotrol XL] 10 mg PO QPM 12/10/18 12/12/18 latanoprost [Xalatan] 1 drp OPB DAILY 12/10/18 12/12/18 lisinopril-hydrochlorothiazide 1 tab PO DAILY 12/10/18 12/12/18 [Zestoretic] metformin [Glucophage] 1,000 mg PO BID 12/10/18 12/12/18 sildenafil [Viagra] 50 mg PO .PRN 12/10/18 12/12/18 New Rx's Medication Instructions Recorded aspirin 81 mg PO DAILY 31 Days #31 tab 12/11/18 atorvastatin 40 mg PO DAILY 31 Days #31 tab 12/11/18 pantoprazole [Protonix] 40 mg PO DAILY 31 Days #31 tab 12/11/18
== END 2018-12-11 18:15 | disposition home or self-care (01) ==
LOC: ED 14:31 → 2N 14:31 → SUATTDRO 18:10 → 2N 19:14

== ENCOUNTER 2019-01-14 05:41 | Inpatient (IN) ==
--- NOTE | 2019-01-09 08:58 | PAT Medication Instructions ---
Medication Instructions Date of Service January 09, 2019 Home Medications Medication Instructions Recorded aspirin 81 mg PO DAILY 31 Days #31 tab 12/11/18 amlodipine [Norvasc] 5 mg PO QAM cholecalciferol (vitamin D3) 2,000 unit PO QAM clopidogrel [Plavix] 75 mg PO QAM glipizide [Glucotrol XL] 10 mg PO QPM latanoprost [Xalatan] 1 drp OPB DAILY lisinopril-hydrochlorothiazide [Zestoretic] 1 tab PO QAM metformin [Glucophage] 1,000 mg PO BID sildenafil [Viagra] 50 mg PO UD PRN aspirin 81 mg PO DAILY atorvastatin 40 mg PO QAM pantoprazole [Protonix] 40 mg PO QAM ASK your prescriber and surgeon clopidogrel [Plavix] 75 mg PO QAM aspirin 81 mg PO DAILY DO NOT take the morning of surgery cholecalciferol (vitamin D3) 2,000 unit PO QAM lisinopril-hydrochlorothiazide [Zestoretic] 1 tab PO QAM metformin [Glucophage] 1,000 mg PO BID sildenafil [Viagra] 50 mg PO UD PRN Take morning of surgery With a small sip of water, OTHERWISE NOTHING TO EAT OR DRINK AFTER MIDNIGHT: amlodipine [Norvasc] 5 mg PO QAM latanoprost [Xalatan] 1 drp OPB DAILY atorvastatin 40 mg PO QAM pantoprazole [Protonix] 40 mg PO QAM Take evening before surgery glipizide [Glucotrol XL] 10 mg PO QPM latanoprost [Xalatan] 1 drp OPB DAILY metformin [Glucophage] 1,000 mg PO BID sildenafil [Viagra] 50 mg PO UD PRN Other Notes If you have any questions please call us at [phone] or [phone] or [phone] or [phone]
--- NOTE | 2019-01-09 09:08 | Anesthesiology Consultation ---
Date of Service January 09, 2019 Assessment & Plan (1) Encounter for pre-operative examination: CHECK BSG AM DOS Chart Review Chart Review: Acceptable Risk for Surgery and Patient seen in Pre Admission Testing Teaching & Discussion Instructed NPO after midnight before surgery, except medications with 15 cc of water. Medication instructions provided according to the PAT guidelines. History Surgery Operation Date: 01/14/19 07:30 Proposed Procedures p Left Carotid Endarterectomy - Primo Arnold MD Height/Weight Height: 6 ft Weight: 101.8 kg Allergies Allergy/AdvReac Type Severity Reaction Status Date / Time No Known Allergies Allergy Verified 01/08/19 14:20 Medications Home Medications Medication Instructions Recorded Confirmed Last Taken amlodipine [Norvasc] 5 mg PO QAM 12/10/18 01/08/19 01/08/19 cholecalciferol (vitamin D3) 2,000 unit PO QAM 12/10/18 01/08/19 01/08/19 [Vitamin D3] clopidogrel [Plavix] 75 mg PO QAM 12/10/18 01/08/19 01/08/19 glipizide [Glucotrol XL] 10 mg PO QPM 12/10/18 01/08/19 01/07/19 latanoprost [Xalatan] 1 drp OPB DAILY 12/10/18 01/08/19 01/08/19 lisinopril-hydrochlorothiazide 1 tab PO QAM 12/10/18 01/08/19 01/08/19 [Zestoretic] metformin [Glucophage] 1,000 mg PO BID 12/10/18 01/08/19 01/08/19 sildenafil [Viagra] 50 mg PO UD PRN 12/10/18 01/08/19 Unknown aspirin 81 mg PO DAILY 31 Days #31 tab 12/11/18 01/08/19 01/08/19 atorvastatin 40 mg PO QAM 01/08/19 01/08/19 01/08/19 pantoprazole [Protonix] 40 mg PO QAM 01/08/19 01/08/19 01/08/19 Past Medical History Medical History TIA (transient ischemic attack) (Acute) FIRST INSTANCE 2015, WAS STARTED ON PLAVIX. DECEMBER 10 2018 ([facility]), WORD FINDING ISSUES/APHASIA. GERD (gastroesophageal reflux disease) (Chronic) HTN (hypertension) (Chronic) Arthritis IN BACK Carotid stenosis Degenerative disc disease Diabetes Lyme disease DX LYME 2 YR AGO, TREATED. RECENTLY TIRED AND ACHY Need for hepatitis C screening test accepted july 2017 Spinal stenosis Exercise / Class Metabolic Activity II 4-5 Yardwork/Stairs/Walk up hill (Does 1 FOS daily several times, no CP but stability issues so moves slowly, and some mild occ SOB) Past Family History Family History Mother Stroke Father Stroke Past Surgical History Surgical History History of arthroscopy RIGHT ANKLE History of colonoscopy History of eye surgery DETACHED RETINA AND PROCEDURE FOR COMPLICATION - RIGHT History of left cataract extraction History of right cataract extraction Past Anesthesia History No Hx of Anesthesia Complications (other than PONV) and No Family Hx of Anesthesia Complications History of PONV No Hx of Motion Sickness and History of PONV (single episode with one colon oscopy) Social History Smoking Status: Current some day smoker tobacco type: cigars Smoking cigarettes per day: OCC CIGAR - ADVISED NPO Do You Dip or Chew Tobacco: No Hx Alcohol Use: Yes Alcohol type: beer alcohol intake frequency: holidays/special occasions only Hx Substance Use: No substance use type: does not use Review of Systems Pt denies any recent chest pain, shortness of breath, palpitations, cough, fever or URI. +joint pain, +fatigue Physical Exam Vital Signs BP: 143/83 P: 68bpm SPO2: 96% RA T: 97.1 F R: 16 ENMT Mouth: no dental restorations, no chipped teeth and no loose teeth Thyromental Distance: < 3.5 Finger Breadths (3) Mallampati Class: II Neck + thick neck; neck extension not limited Respiratory normal respiratory effort Auscultation: lungs clear to auscultation bilaterally Cardiovascular Rate/Rhythm: regular rate and regular rhythm Heart Sounds: no murmur Vessels: no carotid bruit Extremities: no edema Testing Laboratory Results 01/09/19 09:14 01/09/19 09:14 PT 10.8 Seconds (9.0-12.0) 01/09/19 09:14 INR 1.1 (0.9-1.1) 01/09/19 09:14 APTT 26.4 Seconds (21.0-31.0) 01/09/19 09:14 Blood Type O Positive 01/09/19 09:14 Antibody Screen NEGATIVE 01/09/19 09:14 Electrocardiogram Date: 12/10/18 Findings: + NSR @ (62) Chest X-Ray Date: 12/10/18 Findings: + NAD Echocardiogram Date: 12/18/18 EF: 60-65% There is mild asymmetric LVH--focal thickening of the basal septum with no evidence of left ventricular outflow obstruction. Left ventricular systolic function is normal. Grade 1 diastolic dysfunction. Injection of contrast documented in intra-atrial shunt. A PFO is suspected. Aortic valve sclerosis mild, without significant aortic valvular stenosis. Other Testing Neck CTA 12/10/18 IMPRESSION: 1. There is no hemorrhage, mass effect, or evidence of acute territorial ischemia by CT criteria on this angiographic phase examination. 2. Unchanged CT angiogram of the head and neck from study dated 08/05/2018. 3. 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 4. The intracranial vessels are otherwise patent. 5. There is approximately 50% stenosis at the origin of the left internal carotid artery. 6. No high-grade stenosis is seen within the right carotid arterial system.
[2019-01-09 11:24] LABS: Basophils # (auto) 0.07 K/uL (0-0.2); Basophils % (auto) 0.8 %; Eosinophils # (auto) 0.52 K/uL (0-0.5); Eosinophils % (auto) 5.7 %; Hematocrit (blood only) 43.1 % (42-52); Hemoglobin 14.8 g/dL (14.0-18.0); Immature Granulocytes # (auto) 0.02 K/uL (0.00-0.02); Immature Granulocytes % (auto) 0.2 %; Lymphocytes # (auto) 2.11 K/uL (1.2-3.4); Mean Corpuscular Hgb Conc 34.3 g/dL (32-36); Mean Corpuscular Volume 85.2 fL (80-100); Mean Platelet Volume 10.8 fL (7.4-10.4); Monocytes # (auto) 1.05 K/uL (0.11-0.59); Monocytes % (auto) 11.5 %; Neutrophils # (auto) 5.39 K/uL (1.4-6.5); Neutrophils % (auto) 58.8 %; Platelet Count 274 K/uL (130-400); RDW Coefficient of Variation 13.2 % (11.5-14.5); RDW Standard Deviation 40.8 fL (36.4-46.3); Red Blood Count 5.06 M/uL (4.7-6.1); White Blood Count 9.16 K/uL (4.8-10.8)
[2019-01-09 11:32] LABS: BUN Creatinine Ratio 13.1 (10-20); Calcium 9.6 mg/dl (8.5-10.1); Est GFR (African American) 67.6; Est GFR (Non-African American) 58.3; Potassium 4.6 mmol/L (3.5-5.1)
[2019-01-09 11:37] LABS: INR 1.1 (0.9-1.1); Partial Thromboplastin Time 26.4 Seconds (21.0-31.0); Prothrombin Time 10.8 Seconds (9.0-12.0)
--- NOTE | 2019-01-14 05:54 | History & Physical Report ---
Date of Service January 14, 2019 History of Present Illness Primary Care Provider: Leilani Fitzgerald MD December 31, 2018 Name: ATA PAVON [facility] Number: [id number] : 1945 Date of Service: 12/31/2018 Leilani Nieves MD [address] [place] [id number] Fitzgerald: We had the pleasure of seeing Mr. Pavon in our Vascular Surgery Clinic today on 12/31/2018. As you are aware, he is a very pleasant 73-year-old male who has had approximately 1 month of expressive aphasia, for which he underwent a Holter monitor, imaging of his head and neck, and an echocardiogram. 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 This was originally read as less than 50% stenosis on his bilateral disease; but upon further review in our clinic, it appears to be upwards of 70+ percent. He states that his symptoms began approximately 1 month ago. They started acutely and he had inappropriate words. He also has a significant history of having TIA-like symptoms back in 2016. He states that he has otherwise been normal without any facial weakness or muscle weakness, dizziness or new headaches. He states that he has been having some chronic difficulty with his vision and states that this has been happening over the last several years and he is needing to make an appointment with his cruise agent. In addition, he also states that he has been unable to ambulate as much as he wishes, given thigh pain when he ambulates approximately a couple 100 yards. He also states that his feet have been cold consistently and he has noticed some increased redness over the past several years. The remainder of a detailed 14- point review of systems was discussed with the patient and was negative unless otherwise stated above. PAST MEDICAL HISTORY: Significant for hypertension, gastroesophageal reflux disease, patent foramen ovale with a grade 1 diastolic dysfunction. His ejection fraction is preserved with an EF of approximately 60-65%. He is a type 2 diabetic with an A1c last measured at 7.5. The transient ischemic attacks that were listed above. PAST SURGICAL HISTORY: He had a tonsillectomy in 1950 and 2 detached retina surgeries several years ago. MEDICATIONS: He currently takes 81-mg baby aspirin every day, 5 mg of amlodipine every day, 40 mg of atorvastatin every day, 75 mg of Plavix every day, glipizide 10 mg at night, hydrochlorothiazide/ lisinopril 12.5/20 every day, Latanoprost eyedrops both eyes at night, metformin 1 gram b.i.d., pantoprazole 40 mg every day, sildenafil sulfate 50 mg daily as needed for his erectile dysfunction and vitamin D 2000 international units per day. ALLERGIES: He has no known medical allergies. SOCIAL HISTORY: He intermittently smokes cigars at special occasions, but was never a daily smoker. He drinks approximately 2 beers per month. He uses no recreational drugs. He has no family history of bleeding disorder or reaction to anesthesia. PHYSICAL EXAMINATION: He is a very pleasant 73-year-old male who appears his stated age. He is in no acute distress. His heart rate is 66 beats per minute and his blood pressure is 130/70 in his left arm and 134/72 and his right arm. He is resting comfortably in no acute distress. Mucous membranes are moist. Sclerae are anicteric. His extraocular movements were intact. His cranial nerves 2-12 were normal. His trachea was midline. He had a faint carotid bruit on the left side. There was no adenopathy in his anterior or posterior cervical chain. His heart had a regular rate with normal sinus rhythm and no extra murmurs appreciated. His lungs were clear to auscultation bilaterally. His abdomen was soft, round, nondistended, nontender. He has +2 femoral pulses bilaterally. His DP and PT were +1 bilaterally. There was some dependent rubor in his feet bilaterally with no pitting edema. IMAGING: As mentioned above, a CT angiogram of his neck showed there is less than 50% narrowing of both the left and the right internal carotid artery. However, on review, there appears to be significant luminal narrowing on the left carotid artery suggestive of approximately 70% stenosis. ASSESSMENT: Mr. Pavon is a 73-year-old male who presents with expressive aphasia and acute neurologic symptoms over the past month who has a history of TIAs with a CT scan that shows significant left-sided carotid disease of approximately 70%. PLAN: Given his acute findings and history, we recommend he undergo a left carotid endarterectomy at his earliest convenience. This plan was discussed with the patient and his as well as Dr. Arnold. #[id number] I saw and evaluated the patient. Discussed with the resident and agree with the resident's findings and plan as documented in the resident's note. Signature Line Electronic Signature on File CC: Leilani Nieves MD [address] [place] [id number] * Electronically Reviewed/Signed by: iJm Arevalo MD Author Signature Dt/Tm:01/08/2019 07:51 AM Resident Division of General Surgery Electronically Reviewed/Signed by: Primo Arnold MD Cosigner Signature Dt/Tm: 01/06/2019 02:04 PM Dairy Farm Manager Luis Alfredo Singleton [facility] [address], [address] [place] [address] JOHNNY /J Result Type: .HP Date of Service: December 31, 2018 00:00 EDT Authorization Status: Final Subject: History & Physical Letter Author or Import Date: MD Irina, Jim De Los Santos on December 31, 2018 13:48 EDT Verified By: MD Clayton, Primo Crawford on January 06, 2019 14:04 EDT Encounter info: [id number], [facility] SC[facility], Clinic, 12/31/2018 - 12/31/2018 Contributor system: [id number] Allergies Allergy/AdvReac Type Severity Reaction Status Date / Time No Known Allergies Allergy Verified 01/08/19 14:20 Home Medications Home Medications Medication Instructions Recorded Confirmed Type amlodipine [Norvasc] 5 mg PO QAM 12/10/18 01/08/19 History cholecalciferol (vitamin D3) 2,000 unit PO QAM 12/10/18 01/08/19 History [Vitamin D3] clopidogrel [Plavix] 75 mg PO QAM 12/10/18 01/08/19 History glipizide [Glucotrol XL] 10 mg PO QPM 12/10/18 01/08/19 History latanoprost [Xalatan] 1 drp OPB DAILY 12/10/18 01/08/19 History lisinopril-hydrochlorothiazide 1 tab PO QAM 12/10/18 01/08/19 History [Zestoretic] metformin [Glucophage] 1,000 mg PO BID 12/10/18 01/08/19 History sildenafil [Viagra] 50 mg PO UD PRN 12/10/18 01/08/19 History aspirin 81 mg PO DAILY 31 Days #31 tab 12/11/18 01/08/19 Rx atorvastatin 40 mg PO QAM 01/08/19 01/08/19 History pantoprazole [Protonix] 40 mg PO QAM 01/08/19 01/08/19 History Past Med/Surg History Medical History Arthritis IN BACK Carotid stenosis Degenerative disc disease Diabetes Lyme disease DX LYME 2 YR AGO, TREATED. RECENTLY TIRED AND ACHY Spinal stenosis TIA (transient ischemic attack) (Acute) FIRST INSTANCE 2015, WAS STARTED ON PLAVIX. DECEMBER 10 2018 ([facility]), WORD FINDING ISSUES/APHASIA. GERD (gastroesophageal reflux disease) (Chronic) HTN (hypertension) (Chronic) Need for hepatitis C screening test accepted july 2017 Surgical History History of arthroscopy RIGHT ANKLE History of colonoscopy History of eye surgery DETACHED RETINA AND PROCEDURE FOR COMPLICATION - RIGHT History of left cataract extraction History of right cataract extraction Family History Mother Stroke Father Stroke Social History Preferred Language: German Communication Ability: Effective Visual Impairment: Limited Hearing Ability: Use of Hearing Aid Camera Machinist Required: No Beliefs That Will Affect Care: None marital status: Current Living Situation: Spouse current occupational status: retired Other Information That Helps Us Care for You: No Feels Safe at Home: Yes Smoking Status: Never smoker Tobacco Type: cigars Cigarettes Per Day: OCC CIGAR - ADVISED NPO Do You Dip or Chew Tobacco: No Hx Alcohol Use: No Hx Substance Use: No Dental Care, Regularly: Yes Physical Activity Frequency: Does not Exercise
[2019-01-14] MEDS ORDERED: LR 15ML/HR IV SCH (06:00)
[2019-01-14] MEDS ORDERED: LR 60ML/HR IV SCH (06:00)
[2019-01-14] MEDS ORDERED: CEFAZOLIN 2000MG 2,000 MG/15 ML SYR IV SCH (06:00)
[2019-01-14] MEDS ORDERED: LIDOCAINE HCL 2% 2 ML VIAL/AMP(20MG/ML) INFIL ONE ×2 (06:39→07:04)
[2019-01-14] MEDS ORDERED: BUPIVACAINE/EPINEPHRINE 0.5% MPF 1:200,000 30 ML VIAL ONE (06:58)
[2019-01-14] MEDS ORDERED: LIDOCAINE HCL 1% 20 ML VIAL ONE (06:58)
[2019-01-14] MEDS ORDERED: THROMBIN FOR SOLN 20000 UNIT KIT ONE (06:58)
[2019-01-14] MEDS ORDERED: HEPARIN (PORCINE) 1000 UNIT/ML 10 ML (CATH LAB USE ONLY) ONE (06:58)
[2019-01-14] MEDS ORDERED: GELATIN SPONGE SZ 100 ONE (06:58)
[2019-01-14] MEDS ORDERED: CEFAZOLIN 250 MG/ML 1 GM VIAL ONE (06:58)
[2019-01-14] MEDS ORDERED: GLYCOPYRROLATE 0.2 MG/ML VIAL ONE (07:04)
[2019-01-14] MEDS ORDERED: DEXAMETHASONE SOD INJ 4 MG/ML VIAL ONE (07:04)
[2019-01-14] MEDS ORDERED: PROPOFOL IV EMULSION 10 MG/ML 20 ML VIAL IV ONE (07:04)
[2019-01-14] MEDS ORDERED: NEOSTIGMINE METHYLSULFATE 5 MG/5 ML SYR ONE (07:04)
[2019-01-14] MEDS ORDERED: ONDANSETRON INJ 2 MG/ML 2 ML VIAL ONE (07:04)
[2019-01-14] MEDS ORDERED: fentaNYL citrate 100 MCG/2 ML VIAL ONE (07:05)
[2019-01-14] MEDS ORDERED: MIDAZOLAM HCL 1 MG/ML 2ML VIAL ONE (07:05)
--- NOTE | 2019-01-14 07:09 | History & Physical Bridge Note ---
Date of Service January 14, 2019 History & Physical Bridge Note I have examined the patient, reviewed the History & Physical and in the interval since the performance of the History & Physical I have noted the following changes of clinical significance: no changes noted
[2019-01-14] MEDS ORDERED: ePHEDrine sulfate 50 MG/ML AMP IV PRN (07:23)
[2019-01-14] MEDS ORDERED: ATROPINE SULFATE 0.1 MG/ML 10ML SYR IV PRN (07:23)
[2019-01-14] MEDS ORDERED: ONDANSETRON INJ 2 MG/ML 2 ML VIAL IV PRN ×2 (07:23→12:02)
[2019-01-14] MEDS ORDERED: fentaNYL citrate 100 MCG/2 ML VIAL IV PRN (07:23)
[2019-01-14] MEDS ORDERED: HEPARIN SOD (PORCINE) 1000 UNIT/ML 10 ML VIAL ONE ×2 (08:13→09:53)
[2019-01-14] MEDS ORDERED: NITROGLYCERIN/D5W 100 MCG/ML BTL ONE (08:14)
[2019-01-14] MEDS ORDERED: PHENYLEPHRINE HCL 10 MG/ML VIAL ONE (09:09)
[2019-01-14] MEDS ORDERED: HydrALAZINE HCL 20 MG/ML VIAL ONE (09:25)
--- NOTE | 2019-01-14 10:02 | Post Operative Brief Note ---
Immediate Post Op Note v1 Date of Surgery January 14, 2019 Pre & Post Diagnosis Operation Date: 01/14/19 07:30 Pre-Op Diagnosis: Left Internal Carotid Artery Stenosis with TIA Post-Op Diagnosis: Left Internal Carotid Artery Stenosis with TIA Procedure Operation Date: 01/14/19 07:30 Actual Procedures p Left Internal Carotid Endarterectomy with Patch(Left) - Primo Arnold MD Surgeon Primo Arnold MD Merry Go Round Operator Shaquille Arevalo MD, L.Minarchick,PAC Estimated Blood Loss 50 Findings Consistent with Post-Op Diagnosis Anesthesia Type General Complications none Disposition Accompanied Patient To Recovery: No Disposition: Recovery Room
--- NOTE | 2019-01-14 10:26 | Operative Report ---
Post Operative Report Pre & Post Diagnosis Operation Date: 01/14/19 07:30 Pre-Op Diagnosis: Left Internal Carotid Artery Stenosis with TIA Post-Op Diagnosis: Left Internal Carotid Artery Stenosis with TIA Procedure Operation Date: 01/14/19 07:30 Actual Procedures p Left Internal Carotid Endarterectomy with Patch(Left) - Primo Arnold MD Surgeon Dr. Primo Arnold Cordage Sales Representative Shaquille Arevalo MD, L.Minarchick,PAC Estimated Blood Loss 50 Findings Consistent with Post-Op Diagnosis Fluids 200 mL Specimens None Drains None Anesthesia Type General Complications none Disposition Accompanied Patient To Recovery: No Disposition: Recovery Room Indications Patient is a 73-year-old male who has had a history of TIA attacks ranging back from 2016 who recently had a bout of expressive aphasia who presented to vascular surgery clinic with findings of a left carotid stenosis of greater than 70% associated with the aforementioned symptoms. I have discussed the risks options and benefits of the procedure with the patient. The patient understands the risks options and benefits and agrees to the procedure. Description of Procedure The patient was taken to the operating room and placed in supine position. After general anesthesia was accomplished the left-side of the neck was prepped and draped in a sterile manner. The patient was identified and a timeout performed. A longitudinal neck incision was then made coursing along the medial border of the sternocleidomastoid muscle. The incision was taken down through the platysmal layer. The facial vein was identified, ligated, and divided. The common carotid artery was then seen. It was dissected free down to the omohyoid muscle. The dissection was carried upward until the external carotid artery and superior thyroid artery was seen. The superior thyroid artery was slung with a 2-0 silk suture. The external carotid was slung with a red rubber vessel loop. Next the dissection was carried up along the internal carotid artery. This was carried upward to beyond the area of narrowing. The hypoglossal nerve was seen and preserved. The patient was heparinized. After adequate heparinization was accomplished, the internal, external, and common carotid arteries were clamped. A longitudinal arteriotomy was started on the common carotid artery and extended upward along the internal carotid artery to a point beyond the area of narrowing. There was calcified plaque of the internal carotid artery origin causing approximately 85-90% narrowing. A Doppler shunt was then placed in the internal, followed by the common carotid artery and held in place with Vaibhav clamps. There was good back bleeding seen from the internal carotid artery. The endarterectomy was then started in the appropriate plane on the common carotid artery. This was carried upward and the external carotid was everted and endarterectomized. The endarterectomy was then carried up along the internal carotid artery till a nice feathering breakoff point was accomplished beyond the end of the plaque. The endarterectomy was then carried down further on the common carotid artery. At end of the arteriotomy, the plaque was then transected. Under loop magnification, all loose debris and flaps were removed. There is no distal flap seen at the end of the endarterectomy site. The arteriotomy then closed using an bovine pericardial patch and a running 6-0 prolene suture. This was done in the usual vascular fashion. Prior to completing the closure, the doppler shunt was removed and the internal and common carotid arteries were reclamped. Backbleeding and forward bleeding was allowed to occur. The flow surface was irrigated with heparinized saline. The final few sutures were then placed and securely tied. Clamps were then removed off the external and common carotid arteries. The clamp was then removed the internal carotid artery. Good distal flow was seen. Adequate hemostasis was seen of the patch. The wound was inspected and adequate hemostasis was obtained. The wound was irrigated with antibiotic solution. It was then closed with a running 3-0 Vicryl suture for the platysmal layer and a 4-0 subcuticular Vicryl suture for the skin edges. Dermabond was used for dressing. The patient left the operating room in satisfactory condition and tolerated the procedure well. Dr. Arnold was present and scrubbed for the entire procedure. I attest to the content of the Intraoperative Record and any orders documented therein. Any exceptions are noted below.
[2019-01-14] MEDS ORDERED: LABETALOL HCL IV 5 MG/ML 20ML IV ONE ×2 (11:19→18:32)
--- NOTE | 2019-01-14 11:27 | Anesthesiology Progress Note ---
Date of Service January 14, 2019 Anesthesia Post Procedure Vital Signs Vital Signs: Temp Pulse Pulse Resp BP Pulse Ox 01/14/19 11:15 81 27 H 137/75 94 01/14/19 11:05 80 18 119/70 99 01/14/19 10:55 85 21 138/88 98 01/14/19 10:46 83 20 144/75 H 98 01/14/19 10:36 96.8 F L 82 20 149/88 H 94 01/14/19 06:18 97.7 F 68 18 145/101 H 96 Transfer of Care Handoff Completed per policy Notes Mental Status: alert / awake / arousable and participated in evaluation Patient Amnestic to Procedure: Yes Nausea / Vomiting: adequately controlled Pain: adequately controlled Airway Patency, RR, SpO2: stable & adequate BP & HR: stable & adequate Hydration State: stable & adequate Anesthetic Complications: no major complications apparent and Pt Satisfied with anesthetic care
[2019-01-14] MEDS ORDERED: OXYCODONE/ACETAMINOPHEN 5mg/325mg TAB PO PRN (12:02)
[2019-01-14] MEDS ORDERED: METOPROLOL TARTRATE 1 MG/ML VIAL IV PRN (12:02)
[2019-01-14] MEDS ORDERED: NON-FORMULARY MEDICATION (Sildenafil [Viagra] 50 MG) PO PRN (12:02)
[2019-01-14] MEDS ORDERED: D5W AND 1/2NSS 1,000 ML IV SCH (12:02)
[2019-01-14] MEDS: MoRPHine SULFATE 4 MG/ML 1 ML CARP\\VIAL IV PRN ×2 (12:18→18:38)
--- NOTE | 2019-01-14 13:23 | Critical Care Consultation ---
Date of Consultation January 14, 2019 Assessment & Plan (1) Carotid artery disease: Reason Critically Ill: Pt is a 73yo with a PMHx significant for HLD, HTN, DMII, carotid artery disease and recurrent TIAs who is being monitored in the ICU after left carotid endarterectomy. NEURO -CAM NEGATIVE -Hx of recurrent TIAs likely due to >70% left carotid occlusion -s/p left carotid endarterectomy for treatment 01/14 -continue home plavix, aspirin, statin -Continue morphine and percocet as needed for pain CARDIO -Pt with Hx of carotid stenosis, HLD, HTN, CAD CAROTID ARTERY DISEASE/STENOSIS -s/p left carotid endarterectomy 01/14 -continue home plavix, aspirin, statin HTN -currently well controlled -continue home amlodipine, prinzide HLD -continue home atorvastatin PULM -On room air and saturating well. -will continue to monitor post-op GI -Heart healthy diet -Continue Protonix daily RENAL//electrolytes -No concerns currently, normal renal function. -Carballo out, adequate urine production -On Normosol -will continue to monitor and replace electrolytes as needed ID -Post-op Ancef ordered -currently afebrile, normal WBC -will continue to monitor for signs of infection postop HEME -Hematology labs unremarkable -will continue to monitor ENDO -sugars >200 postop -home metformin and glipizide ordered by primary service -ICU protocol for hyperglycemia LINES: PIVs DVT Prophylaxis: SCD's Full Code DISPO: ICU Supervising Physician Co-Signing Physician Notes Dr. Chen was resident physician during care of patient. I separately evaluated patient for obrien portions of the history and the exam. I was present during the critical portion of medical decision making, and I discussed the case with the resident. I generally agree with the findings and plan. Patient had normal postoperative course until approximately 1830 which he was complaining of inability to swallow, difficulty breathing and unsure of location. Hemodynamically his blood pressure was elevated in 160s 170s which we given him labetalol to decrease blood pressure. He has a nonfocal physical exam moving all 4 extremities with no weakness at this point and he is able to spell world forwards and backwards. And concerned of possible reperfusion injury as well as intercranial hemorrhage given recent postop, we will obtain a noncontrast CT scan The incision is clean dry intact he is soft over the area of the incision, his oropharynx appears to be clear without any deviation nor bruising in the oropharynx and hypopharynx Continue to closely monitor the patient. I have updated Dr. Arnold. I have personally spent 40 minutes of critical care time in the direct management of this patient. This is a life/limb threatening event. This includes time spent evaluating patient, direct bedside care, chart review, placing orders, interpretation of diagnostic studies, discussion with consultants, patient, and/or family members regarding treatment decisions, as well as other required patient management activities. This time is exclusive of all separately billable procedures, and teaching time and separate from and in addition to any other critical care service time. History of Present Illness Attending Physician: Primo Arnold MD History of Present Illness Pt is a 73yo with a Hx of TIAs who presented today for left carotid endarterectomy after multiple TIAs. Also found to have more than 70% stenosis of his left carotid. Admitted to the ICU post-surgery for monitoring. Currently states that he is not feeling well. can't really describe his symptoms. States he has a sore throat and headache but feels his pain is well controlled otherwise. Allergies Allergy/AdvReac Type Severity Reaction Status Date / Time No Known Allergies Allergy Verified 01/14/19 06:13 Home Medications Home Medications Medication Instructions Recorded Confirmed Type amlodipine [Norvasc] 5 mg PO QAM 12/10/18 01/08/19 History cholecalciferol (vitamin D3) 2,000 unit PO QAM 12/10/18 01/14/19 History [Vitamin D3] clopidogrel [Plavix] 75 mg PO QAM 12/10/18 01/14/19 History glipizide [Glucotrol XL] 10 mg PO QPM 12/10/18 01/08/19 History latanoprost [Xalatan] 1 drp OPB DAILY 12/10/18 01/08/19 History lisinopril-hydrochlorothiazide 1 tab PO QAM 12/10/18 01/08/19 History [Zestoretic] metformin [Glucophage] 1,000 mg PO BID 12/10/18 01/14/19 History sildenafil [Viagra] 50 mg PO UD PRN 12/10/18 01/14/19 History aspirin 81 mg PO DAILY 31 Days #31 tab 12/11/18 01/08/19 Rx atorvastatin 40 mg PO QAM 01/08/19 01/14/19 History pantoprazole [Protonix] 40 mg PO QAM 01/08/19 01/08/19 History Patient History Family History Mother Stroke Father Stroke Social History Preferred Language: Peruvian Communication Ability: Effective Visual Impairment: Limited Hearing Ability: Use of Hearing Aid Damage Appraiser Required: No Beliefs That Will Affect Care: None marital status: Current Living Situation: Spouse current occupational status: retired Other Information That Helps Us Care for You: No Feels Safe at Home: Yes Safety Concerns: Feels Safe At This Time Smoking Status: Current some day smoker Tobacco Type: cigars Cigarettes Per Day: OCC CIGAR - ADVISED NPO Do You Dip or Chew Tobacco: No Hx Alcohol Use: Yes Alcohol type: beer Alcohol Intake Frequency: Weekly Alcohol Intake Frequency Comment: 2-3 beers per week Hx Substance Use: No Dental Care, Regularly: Yes Physical Activity Frequency: Does not Exercise Review of Systems Review of Systems: All systems reviewed & are unremarkable except as noted in HPI & below Physical Exam Physical Exam: General: Alert, oriented. Uncomfortable at time of exam. HEENT: NC/AT, left neck with surgical scar, no bleeding or erythema. Chest: Nontender to palpation. CV: RRR, Normal s1, s2. Resp: Breath sounds clear bilaterally on front Abdomen: Soft, nontender. No guarding. Extremities: No edema. Results & Data Vital Signs (Past 12 Hours) Vital Signs Temp Pulse Pulse Pulse Resp BP BP 01/14/19 12:30 86 18 01/14/19 12:07 36.5 C 83 16 130/74 01/14/19 12:00 36.6 C 87 18 130/74 01/14/19 11:35 36.3 C L 83 24 121/66 01/14/19 11:25 82 20 140/73 01/14/19 11:15 81 27 H 137/75 01/14/19 11:05 80 18 119/70 01/14/19 10:55 85 21 138/88 01/14/19 10:46 83 20 144/75 H 01/14/19 10:36 36.0 C L 82 20 149/88 H 01/14/19 06:18 36.5 C 68 18 145/101 H Pulse Ox 01/14/19 12:30 96 01/14/19 12:07 95 01/14/19 12:00 95 01/14/19 11:35 94 01/14/19 11:25 96 01/14/19 11:15 94 01/14/19 11:05 99 01/14/19 10:55 98 01/14/19 10:46 98 01/14/19 10:36 94 01/14/19 06:18 96 Laboratory Results Laboratory Results - last 24 hr 01/14/19 01/14/19 01/14/19 06:03 10:40 12:00 POC Glucose 173 H 181 H Nasal Screen MRSA (PCR) Pending 01/14/19 01/14/19 15:29 15:30 POC Glucose 266 H 269 H Nasal Screen MRSA (PCR) Medications Administered Home Medications amlodipine [Norvasc] 5 mg PO QAM 12/10/18 [History Confirmed 01/08/19] cholecalciferol (vitamin D3) [Vitamin D3] 2,000 unit PO QAM 12/10/18 [History Confirmed 01/14/19] clopidogrel [Plavix] 75 mg PO QAM 12/10/18 [History Confirmed 01/14/19] glipizide [Glucotrol XL] 10 mg PO QPM 12/10/18 [History Confirmed 01/08/19] latanoprost [Xalatan] 1 drp OPB DAILY 12/10/18 [History Confirmed 01/08/19] lisinopril-hydrochlorothiazide [Zestoretic] 1 tab PO QAM 12/10/18 [History Confirmed 01/08/19] metformin [Glucophage] 1,000 mg PO BID 12/10/18 [History Confirmed 01/14/19] sildenafil [Viagra] 50 mg PO UD PRN 12/10/18 [History Confirmed 01/14/19] aspirin 81 mg PO DAILY 31 Days #31 tab 12/11/18 [Rx Confirmed 01/08/19] atorvastatin 40 mg PO QAM 01/08/19 [History Confirmed 01/14/19] pantoprazole [Protonix] 40 mg PO QAM 01/08/19 [History Confirmed 01/08/19] Active Medications Amlodipine Besylate (Norvasc) 5 mg PO QAM [facility] Stop: 02/14/19 08:59 Aspirin (Ecotrin Ectab) 81 mg PO DAILY [facility] Stop: 02/14/19 08:59 Atorvastatin Calcium (Lipitor) 40 mg PO QAM [facility] Stop: 02/14/19 08:59 Clopidogrel Bisulfate (Plavix) 75 mg PO QAM [facility] Stop: 02/14/19 08:59 Glipizide (Glucotrol Extended Rel) 10 mg PO 1700 [facility] Stop: 02/13/19 16:59 Lisinopril/HCTZ (Prinzide 20/12.5mg) 1 tab PO QAM [facility] Stop: 02/14/19 08:59 Lactated Ringer's (Lr) 1,000 mls @ 15 mls/hr IV .Q24H [facility] Stop: 01/15/19 05:59 Last Infusion: 01/14/19 07:26 Dose: Infused Documented by: Cefazolin Sodium (Ancef 2000mg) 2,000 mg in 15 mls @ 2.5 mls/min IV PREOP [facility]; Protocol Stop: 01/14/19 18:00 Last Admin: 01/14/19 07:26 Dose: 2.5 mls/min Documented by: Cefazolin Sodium (Ancef 2000mg) 2,000 mg in 15 mls @ 3.75 mls/min IV Q8H [facility]; Protocol Stop: 01/15/19 00:03 Parenteral Electrolytes (Normosol-R) 1,000 mls @ 125 mls/hr IV .Q8H [facility] Stop: 02/13/19 15:44 Latanoprost (Xalatan Oph) 1 drops OPB HS [facility] Stop: 02/13/19 20:59 Metformin HCl (Glucophage) 1,000 mg PO BIDM [facility] Stop: 02/14/19 07:59 Metoprolol Tartrate (Lopressor) 5 mg IV Q5M PRN PRN Reason: Hypertension Stop: 02/13/19 12:01 Morphine Sulfate (Morphine Sulfate) 1 - 4 mg IV Q2H PRN PRN Reason: Severe Pain Stop: 01/28/19 12:01 Last Admin: 01/14/19 12:18 Dose: 4 mg Documented by: Ondansetron HCl (Zofran) 4 mg IV ONE PRN PRN Reason: Nausea And Vomiting Stop: 02/13/19 12:01 Oxycodone/Acetaminophen (Percocet 5mg/325mg) 1 - 2 tab PO Q4H PRN PRN Reason: Moderate Pain Stop: 01/28/19 12:01 Pantoprazole Sodium (Protonix) 40 mg PO QAM [facility] Stop: 02/14/19 08:59 Vitamin D (Vitamin D3) 2,000 units PO QAM [facility] Stop: 02/14/19 08:59 PG Care Time/CCT Total # of Minutes Spent Total Time Spent with Patient: Total time spent is greater than 50% in coordination of care (as documented) at patient's floor/unit and/or counseling patient: Critical Care Time: Yes Total Critical Care Time: 40
[2019-01-14] MEDS: NORMOSOL-R 1,000 ML IV SCH (15:45)
[2019-01-14] MEDS: CEFAZOLIN 2000MG 2,000 MG/15 ML SYR IV SCH (16:13)
[2019-01-14] MEDS: glipiZIDE ER 2.5 MG TABCR PO SCH (16:14)
[2019-01-14] MEDS ORDERED: LABETALOL HCL IV 5 MG/ML 20ML IV STA (18:37)
[2019-01-14] MEDS ORDERED: MoRPHine SULFATE 2 MG/ML CARP IV STA (18:38)
--- NOTE | 2019-01-14 19:01 | CT Scan Report ---
CT head/brain wo con CLINICAL HISTORY: 73 years-old Male presenting with r/o ICH, recent carotid endarterectomy. TECHNIQUE: Multidetector CT imaging of the head was performed without the use of intravenous contrast . IV contrast: None. One or more dose lowering techniques were used consistent with the principles of ALARA (as low as reasonably achievable), including automatic exposure control, mA or kV adjustment t o individual patient size, and/or use of iterative reconstruction. COMPARISON: 12/10/2018. CT DOSE (mGy.cm): The estimated cumulative dose is 614.27 mGy.cm. FINDINGS: Title I Math Tutor topogram: Unremarkable. Proportional ventricular and sulcal prominence, likely age-related parenchymal volume loss. No hemorr harsha. Periventricular and subcortical white matter hypoattenuation, nonspecific but likely indicative of chronic small vessel ischemic change. No acute territorial infarct. No mass effect or midline cyndi ft. No extra-axial fluid collection. Paranasal sinuses and mastoid air cells clear. Calvarium intact. Postsurgical changes of the right globe. IMPRESSION: 1. Chronic small vessel ischemic change. No acute intracranial abnormality. Electronically signed by: Reynaldo Richmond M.D. 01/14/2019 7:00 PM
[2019-01-14] MEDS ORDERED: METOCLOPRAMIDE HCL INJ 5 MG/ML 2 ML VIAL IV PRN (19:13)
[2019-01-14] MEDS ORDERED: CHLORASEPTIC 1.4% SOLN 180 ML BTL PO PRN (19:14)
[2019-01-14] MEDS ORDERED: METOCLOPRAMIDE HCL INJ 5 MG/ML 2 ML VIAL ONE (19:14)
[2019-01-14] MEDS: LATANOPROST 0.005% OP SOLN 2.5 ML BTL OPB SCH (20:22)
[2019-01-15] MEDS: CEFAZOLIN 2000MG 2,000 MG/15 ML SYR IV SCH (00:12)
[2019-01-15] MEDS: NORMOSOL-R 1,000 ML IV SCH ×2 (00:13→08:16)
[2019-01-15 04:22] LABS: Basophils # (auto) 0.02 K/uL (0-0.2); Basophils % (auto) 0.2 %; Eosinophils # (auto) 0.12 K/uL (0-0.5); Hematocrit (blood only) 37.4 % (42-52); Hemoglobin 12.9 g/dL (14.0-18.0); Immature Granulocytes # (auto) 0.02 K/uL (0.00-0.02); Immature Granulocytes % (auto) 0.2 %; Lymphocytes # (auto) 1.26 K/uL (1.2-3.4); Lymphocytes % (auto) 10.1 %; Mean Corpuscular Hgb Conc 34.5 g/dL (32-36); Mean Corpuscular Volume 82.4 fL (80-100); Mean Platelet Volume 10.2 fL (7.4-10.4); Monocytes # (auto) 1.16 K/uL (0.11-0.59); Monocytes % (auto) 9.3 %; Neutrophils # (auto) 9.84 K/uL (1.4-6.5); Neutrophils % (auto) 79.2 %; Platelet Count 233 K/uL (130-400); RDW Coefficient of Variation 13.1 % (11.5-14.5); RDW Standard Deviation 39.6 fL (36.4-46.3); Red Blood Count 4.54 M/uL (4.7-6.1); White Blood Count 12.42 K/uL (4.8-10.8)
[2019-01-15 04:44] LABS: BUN Creatinine Ratio 12.6 (10-20); Calcium 8.2 mg/dl (8.5-10.1); Creatinine Clr Calc Pharmacy 98.2 ml/min; Est GFR (African American) 101.4; Est GFR (Non-African American) 87.5; Magnesium 1.3 mg/dl (1.8-2.4); Phosphorus 2.8 mg/dl (2.5-4.9); Potassium 3.2 mmol/L (3.5-5.1)
[2019-01-15] MEDS: MAGNESIUM SULFATE / D5W 1 GM/100 ML BAG IV SCH ×3 (05:36→07:30)
[2019-01-15] MEDS: POTASSIUM CHLORIDE / WTR 10 MEQ/100 ML PLCT IV SCH ×3 (05:36→07:29)
--- NOTE | 2019-01-15 07:02 | Critical Care Progress Note ---
Date of Service January 15, 2019 Assessment & Plan (1) Carotid artery disease: Reason Critically Ill: Pt is a 73yo with a PMHx significant for HLD, HTN, DMII, carotid artery disease and recurrent TIAs who is being monitored in the ICU after left carotid endarterectomy. NEURO -CAM POSITIVE -Hx of recurrent TIAs likely due to >70% left carotid occlusion -s/p left carotid endarterectomy for treatment 01/14 -continue home plavix, aspirin, statin -Continue morphine and percocet as needed for pain CARDIO -Pt with Hx of carotid stenosis, HLD, HTN, CAD CAROTID ARTERY DISEASE/STENOSIS -s/p left carotid endarterectomy 01/14 -continue home plavix, aspirin, statin HTN -currently well controlled -continue home prinzide, amlodipine dose increased to 10mg HLD -continue home atorvastatin PULM -On room air and saturating well. -will continue to monitor post-op GI -Heart healthy diet -Continue Protonix daily RENAL//electrolytes -No concerns currently, normal renal function. -Carballo out, adequate urine production -On Normosol -will continue to monitor and replace electrolytes as needed ID -Post-op Ancef ordered -currently afebrile, normal WBC -will continue to monitor for signs of infection postop HEME -Hematology labs unremarkable -will continue to monitor ENDO -sugars consistently elevated postop -home metformin and glipizide ordered by primary service -ICU protocol for hyperglycemia -close followup with PCP strongly recommended for insulin consideration on discharge LINES: PIVs DVT Prophylaxis: SCD's Full Code DISPO: Downgrade/discharge from ICU possible today Supervising Physician Co-Signing Physician Notes Dr. Chen was resident physician during care of patient. I separately evaluated patient for obrien portions of the history and the exam. I was present during the critical portion of medical decision making, and I discussed the case with the resident. I generally agree with the findings and plan. Patient had hyperglycemia, he we switched his fluids from a dextrose containing solution to Normosol. Fluids have been stopped completely he is tolerating oral intake he has had no subsequent episodes of feeling he cannot breathe or something in the back of his throat with no gagging. We have increased his amlodipine from 5 mg to 10 mg. I anticipate discharge home later today. Subjective Pt seated at bed, states he's doing well but still has the sore throat and gagging. Denies SOB, chest pain, abd pain. States the surgical site is still painful. Review of Systems Review of Systems: All systems reviewed & are unremarkable except as noted in HPI & below Physical Exam Physical Exam: General: Alert, oriented. HEENT: NC/AT, left neck with tender surgical scar, no bleeding or erythema. Incision clean, dry and intact. Chest: Nontender to palpation. CV: RRR, Normal s1, s2. Resp: Breath sounds clear bilaterally. Abdomen: Soft, nontender. No guarding. Extremities: No edema. Results & Data Vital Signs (Past 12 Hours) Vital Signs Temp Pulse Resp BP Pulse Ox 01/15/19 06:00 60 20 124/70 96 01/15/19 05:00 76 24 125/76 93 01/15/19 03:00 75 26 H 92 01/15/19 02:00 75 22 94 01/15/19 01:00 99 H 18 126/70 95 01/15/19 00:00 36.7 C 91 H 20 137/73 93 01/14/19 23:00 68 21 138/86 95 01/14/19 22:30 70 21 95 01/14/19 22:00 79 24 98 01/14/19 21:30 60 22 94 01/14/19 20:30 76 23 94 01/14/19 19:30 72 28 H 98 Laboratory Results Laboratory Results - last 24 hr 01/14/19 01/14/19 01/14/19 10:40 12:00 15:29 WBC RBC Hgb Hct MCV MCH MCHC RDW Std Deviation RDW Coeff of Zeina Plt Count MPV Immature Gran % (Auto) Neut % (Auto) Lymph % (Auto) [place] % (Auto) Eos % (Auto) Baso % (Auto) Immature Gran # (Auto) Neut # (Auto) Lymph # (Auto) [place] # (Auto) Eos # (Auto) Baso # (Auto) Sodium Potassium Chloride Carbon Dioxide Anion Gap BUN Creatinine Est Cr Clr Drug Dosing Est GFR ( Amer) Est GFR (Non-Af Amer) BUN/Creatinine Ratio Glucose POC Glucose 181 H 266 H Calcium Phosphorus Magnesium Nasal Screen MRSA (PCR) Negative 01/14/19 01/14/19 01/15/19 15:30 20:25 04:00 WBC 12.42 H RBC 4.54 L Hgb 12.9 L Hct 37.4 L MCV 82.4 MCH 28.4 MCHC 34.5 RDW Std Deviation 39.6 RDW Coeff of Zeina 13.1 Plt Count 233 MPV 10.2 Immature Gran % (Auto) 0.2 Neut % (Auto) 79.2 Lymph % (Auto) 10.1 [place] % (Auto) 9.3 Eos % (Auto) 1.0 Baso % (Auto) 0.2 Immature Gran # (Auto) 0.02 Neut # (Auto) 9.84 H Lymph # (Auto) 1.26 [place] # (Auto) 1.16 H Eos # (Auto) 0.12 Baso # (Auto) 0.02 Sodium Potassium Chloride Carbon Dioxide Anion Gap BUN Creatinine Est Cr Clr Drug Dosing Est GFR ( Amer) Est GFR (Non-Af Amer) BUN/Creatinine Ratio Glucose POC Glucose 269 H 188 H Calcium Phosphorus Magnesium Nasal Screen MRSA (PCR) 01/15/19 01/15/19 04:00 07:22 WBC RBC Hgb Hct MCV MCH MCHC RDW Std Deviation RDW Coeff of Zeina Plt Count MPV Immature Gran % (Auto) Neut % (Auto) Lymph % (Auto) [place] % (Auto) Eos % (Auto) Baso % (Auto) Immature Gran # (Auto) Neut # (Auto) Lymph # (Auto) [place] # (Auto) Eos # (Auto) Baso # (Auto) Sodium 137 Potassium 3.2 L Chloride 103 Carbon Dioxide 28 Anion Gap 6.0 BUN 11 Creatinine 0.84 Est Cr Clr Drug Dosing 98.2 Est GFR ( Amer) 101.4 Est GFR (Non-Af Amer) 87.5 BUN/Creatinine Ratio 12.6 Glucose 130 H POC Glucose 127 H Calcium 8.2 L Phosphorus 2.8 Magnesium 1.3 L Nasal Screen MRSA (PCR) Medications Administered Home Medications amlodipine [Norvasc] 5 mg PO QAM 12/10/18 [History Confirmed 01/08/19] cholecalciferol (vitamin D3) [Vitamin D3] 2,000 unit PO QAM 12/10/18 [History Confirmed 01/14/19] clopidogrel [Plavix] 75 mg PO QAM 12/10/18 [History Confirmed 01/14/19] glipizide [Glucotrol XL] 10 mg PO QPM 12/10/18 [History Confirmed 01/08/19] latanoprost [Xalatan] 1 drp OPB DAILY 12/10/18 [History Confirmed 01/08/19] lisinopril-hydrochlorothiazide [Zestoretic] 1 tab PO QAM 12/10/18 [History Confirmed 01/08/19] metformin [Glucophage] 1,000 mg PO BID 12/10/18 [History Confirmed 01/14/19] sildenafil [Viagra] 50 mg PO UD PRN 12/10/18 [History Confirmed 01/14/19] aspirin 81 mg PO DAILY 31 Days #31 tab 12/11/18 [Rx Confirmed 01/08/19] atorvastatin 40 mg PO QAM 01/08/19 [History Confirmed 01/14/19] pantoprazole [Protonix] 40 mg PO QAM 01/08/19 [History Confirmed 01/08/19] Active Medications Amlodipine Besylate (Norvasc) 5 mg PO QAM [facility] Stop: 02/14/19 08:59 Aspirin (Ecotrin Ectab) 81 mg PO DAILY [facility] Stop: 02/14/19 08:59 Atorvastatin Calcium (Lipitor) 40 mg PO QAM [facility] Stop: 02/14/19 08:59 Clopidogrel Bisulfate (Plavix) 75 mg PO QAM [facility] Stop: 02/14/19 08:59 Glipizide (Glucotrol Extended Rel) 10 mg PO 1700 [facility] Stop: 02/13/19 16:59 Last Admin: 01/14/19 16:14 Dose: 10 mg Documented by: Lisinopril/HCTZ (Prinzide 20/12.5mg) 1 tab PO QAM [facility] Stop: 02/14/19 08:59 Parenteral Electrolytes (Normosol-R) 1,000 mls @ 125 mls/hr IV .Q8H [facility] Stop: 02/13/19 15:44 Last Admin: 01/15/19 00:13 Dose: 125 mls/hr Documented by: Magnesium Sulfate/Dextrose (Magnesium Sulfate / D5w) 1 gm in 100 mls @ 100 mls/hr IV Q1H [facility] Stop: 01/15/19 08:06 Last Admin: 01/15/19 07:30 Dose: 100 mls/hr Documented by: Potassium Chloride (K [place] / Wtr) 10 meq in 100 mls @ 100 mls/hr IV Q1H [facility] Stop: 01/15/19 08:06 Last Admin: 01/15/19 07:29 Dose: 100 mls/hr Documented by: Latanoprost (Xalatan Oph) 1 drops OPB [facility] Stop: 02/13/19 20:59 Last Admin: 01/14/19 20:22 Dose: 1 drops Documented by: Metformin HCl (Glucophage) 1,000 mg PO BIDM [facility] Stop: 02/14/19 07:59 Metoclopramide HCl (Reglan) 10 mg IV Q6H PRN PRN Reason: Nausea Stop: 02/13/19 19:12 Metoprolol Tartrate (Lopressor) 5 mg IV Q5M PRN PRN Reason: Hypertension Stop: 02/13/19 12:01 Morphine Sulfate (Morphine Sulfate) 1 - 4 mg IV Q2H PRN PRN Reason: Severe Pain Stop: 01/28/19 12:01 Last Admin: 01/14/19 18:38 Dose: 2 mg Documented by: Ondansetron HCl (Zofran) 4 mg IV ONE PRN PRN Reason: Nausea And Vomiting Stop: 02/13/19 12:01 Last Admin: 01/14/19 16:34 Dose: 4 mg Documented by: Oxycodone/Acetaminophen (Percocet 5mg/325mg) 1 - 2 tab PO Q4H PRN PRN Reason: Moderate Pain Stop: 01/28/19 12:01 Last Admin: 01/15/19 02:38 Dose: 2 tab Documented by: Pantoprazole [facility] (Protonix) [facility] [place] Stop: 02/14/19 08:59 Phenol (Chloraseptic 1.4% Combs) 5 sprays PO Q2H PRN PRN Reason: Sore Throat Stop: 02/13/19 19:13 Last Admin: 01/14/19 20:20 Dose: 5 sprays Documented by: Vitamin D (Vitamin D3) 2,000 units PO [facility] Stop: 02/14/19 08:59
[2019-01-15] MEDS: LISINOPRIL/HCTZ 20/12.5MG 1 TAB TAB PO SCH (08:12)
[2019-01-15] MEDS: PANTOprazole 40 MG TAB PO SCH (08:12)
[2019-01-15] MEDS: ASPIRIN 81 MG ECTAB PO SCH (08:13)
[2019-01-15] MEDS: ATORVASTATIN 40 MG TAB PO SCH (08:13)
[2019-01-15] MEDS: CHOLECALCIFEROL 1,000 UNITS TAB PO SCH (08:13)
[2019-01-15] MEDS: CLOPIDOGREL BISULFATE 75 MG TAB PO SCH (08:14)
[2019-01-15] MEDS: METFORMIN HCL 500 MG TAB PO SCH ×2 (08:14→18:22)
[2019-01-15] MEDS: AMLODIPINE BESYLATE 5 MG TAB PO SCH (08:20)
[2019-01-15] MEDS ORDERED: AMLODIPINE BESYLATE 5 MG TAB PO SCH (09:00)
--- NOTE | 2019-01-15 13:25 | Surgery Progress Note ---
Date of Service January 15, 2019 Assessment & Plan (1) Left carotid artery stenosis: Patient is doing well post left carotid endarterectomy. We will transfer to the floor and most likely discharge tomorrow. Subjective Patient awake and alert. Has some expressive aphasia but not significantly changed from pre op. He denies any hoarseness or difficulty swallowing. Physical Exam Physical Exam: Patient is awake and alert. He is able to swallow food without difficulty. He follows commands. His neck is minimal swelling. Incision is dry and clean. Heart irregular rate and rhythm and lungs were clear. Neurologic exam is intact her motor and sensory function. Results & Data Vital Signs (Past 12 Hours) Vital Signs Temp Pulse Resp BP Pulse Ox 01/15/19 10:00 93 H 23 165/93 H 98 01/15/19 09:00 91 H 24 139/79 98 01/15/19 08:00 36.4 C L 78 25 H 132/102 H 97 01/15/19 07:00 67 20 131/75 95 01/15/19 06:00 60 20 124/70 96 01/15/19 05:00 76 24 125/76 93 01/15/19 03:00 75 26 H 92 01/15/19 02:00 75 22 94
[2019-01-15] MEDS ORDERED: ACETAMINOPHEN 500 MG TAB PO PRN (14:36)
[2019-01-15] MEDS: glipiZIDE ER 2.5 MG TABCR PO SCH (18:22)
[2019-01-15] MEDS: LATANOPROST 0.005% OP SOLN 2.5 ML BTL OPB SCH (20:37)
[2019-01-16] MEDS: CHOLECALCIFEROL 1,000 UNITS TAB PO SCH (08:25)
[2019-01-16] MEDS: ASPIRIN 81 MG ECTAB PO SCH (08:26)
[2019-01-16] MEDS: LISINOPRIL/HCTZ 20/12.5MG 1 TAB TAB PO SCH (08:26)
[2019-01-16] MEDS: METFORMIN HCL 500 MG TAB PO SCH (08:26)
[2019-01-16] MEDS: AMLODIPINE BESYLATE 5 MG TAB PO SCH (08:26)
[2019-01-16] MEDS: ATORVASTATIN 40 MG TAB PO SCH (08:26)
[2019-01-16] MEDS: PANTOprazole 40 MG TAB PO SCH (08:26)
[2019-01-16] MEDS: CLOPIDOGREL BISULFATE 75 MG TAB PO SCH (08:26)
--- NOTE | 2019-01-16 09:13 | Surgery Progress Note ---
Date of Service January 16, 2019 Assessment & Plan (1) Left carotid artery stenosis: Patient is doing well post left carotid endarterectomy. Will d/c today Subjective Patient awake and alert. He has no complaints. Review of Systems Ear, Nose, Mouth, Throat: no sore throat and no hoarseness Gastrointestinal: no pain with swallowing and no dysphagia Neurologic: no localized weakness, no paralysis, no numbness and no abnormal speech (speech baseline) Physical Exam Neck: trachea midline neck incision dry and clean minimal swelling Cardiovascular: Rate/Rhythm: regular rate and regular rhythm Neurologic: CN's II-XI intact bilaterally and moves all extremities; no focal motor deficits Speech / Cognition: normal speech Psychiatric: Orientation: alert and oriented x 3 Results & Data Vital Signs (Past 12 Hours) Vital Signs Temp Pulse Resp BP Pulse Ox 01/16/19 07:02 36.8 C 87 18 169/92 H 95 01/16/19 00:18 37.2 C 93 H 16 148/68 H 95
--- NOTE | 2019-01-27 10:02 | Discharge Summary ---
Date of Service January 27, 2019 Admission HPI Per Admitting Provider We had the pleasure of seeing Mr. Kay in our Vascular Surgery Clinic today on 12/31/2018. As you are aware, he is a very pleasant 73-year-old male who has had approximately 1 month of expressive aphasia, for which he underwent a Holter monitor, imaging of his head and neck, and an echocardiogram. 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 This was originally read as less than 50% stenosis on his bilateral disease; but upon further review in our clinic, it appears to be upwards of 70+ percent. He states that his symptoms began approximately 1 month ago. They started acutely and he had inappropriate words. He also has a significant history of having TIA-like symptoms back in 2016. He states that he has otherwise been normal without any facial weakness or muscle weakness, dizziness or new headaches. 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 In addition, he also states that he has been unable to ambulate as much as he wishes, given thigh pain when he ambulates approximately a couple 100 yards. He also states that his feet have been cold consistently and he has noticed some increased redness over the past several years. The remainder of a detailed 14- point review of systems was discussed with the patient and was negative unless otherwise stated above. PAST MEDICAL HISTORY: Significant for hypertension, gastroesophageal reflux disease, patent foramen ovale with a grade 1 diastolic dysfunction. His ejection fraction is preserved with an EF of approximately 60-65%. He is a type 2 diabetic with an A1c last measured at 7.5. The transient ischemic attacks that were listed above. PAST SURGICAL HISTORY: He had a tonsillectomy in 1950 and 2 detached retina surgeries several years ago. MEDICATIONS: He currently takes 81-mg baby aspirin every day, 5 mg of amlodipine every day, 40 mg of atorvastatin every day, 75 mg of Plavix every day, glipizide 10 mg at night, hydrochlorothiazide/ lisinopril 12.5/20 every day, Latanoprost eyedrops both eyes at night, metformin 1 gram b.i.d., pantoprazole 40 mg every day, sildenafil sulfate 50 mg daily as needed for his erectile dysfunction and vitamin D 2000 international units per day. ALLERGIES: He has no known medical allergies. SOCIAL HISTORY: He intermittently smokes cigars at special occasions, but was never a daily smoker. He drinks approximately 2 beers per month. He uses no recreational drugs. He has no family history of bleeding disorder or reaction to anesthesia. PHYSICAL EXAMINATION: He is a very pleasant 73-year-old male who appears his stated age. He is in no acute distress. His heart rate is 66 beats per minute and his blood pressure is 130/70 in his left arm and 134/72 and his right arm. He is resting comfortably in no acute distress. Mucous membranes are moist. Sclerae are anicteric. His extraocular movements were intact. His cranial nerves 2-12 were normal. His trachea was midline. He had a faint carotid bruit on the left side. There was no adenopathy in his anterior or posterior cervical chain. His heart had a regular rate with normal sinus rhythm and no extra murmurs appreciated. His lungs were clear to auscultation bilaterally. His abdomen was soft, round, nondistended, nontender. He has +2 femoral pulses bilaterally. His DP and PT were +1 bilaterally. There was some dependent rubor in his feet bilaterally with no pitting edema. IMAGING: As mentioned above, a CT angiogram of his neck showed there is less than 50% narrowing of both the left and the right internal carotid artery. However, on review, there appears to be significant luminal narrowing on the left carotid artery suggestive of approximately 70% stenosis. ASSESSMENT: Mr. Kay is a 73-year-old male who presents with expressive aphasia and acute neurologic symptoms over the past month who has a history of TIAs with a CT scan that shows significant left-sided carotid disease of approximately 70%. PLAN: Given his acute findings and history, we recommend he undergo a left carotid endarterectomy at his earliest convenience. This plan was discussed with the patient and his as well as Dr. Arnold. #[id number] I saw and evaluated the patient. Discussed with the resident and agree with the resident's findings and plan as documented in the resident's note. Signature Line Electronic Signature on File CC: Leilani Nieves MD [address] [place] [id number] * Electronically Reviewed/Signed by: Jim Arevalo MD Author Signature Dt/Tm:01/08/2019 07:51 AM Resident Division of General Surgery Electronically Reviewed/Signed by: Primo Arnold MD Cosigner Signature Dt/Tm: 01/06/2019 02:04 PM Deburr Technician Luis Alfredo Sinlgeton [facility] [place] [address], [address] [place] [address] JOHNNY /JJR Result Type: .HP Date of Service: December 31, 2018 00:00 EDT Authorization Status: Final Subject: History & Physical Letter Author or Import Date: MD Irina, Jim De Los Santos on December 31, 2018 13:48 EDT Verified By: MD Arnold Eugene J on January 06, 2019 Admission Exam Per Admitting Provider PHYSICAL EXAMINATION: He is a very pleasant 73-year-old male who appears his stated age. He is in no acute distress. His heart rate is 66 beats per minute and his blood pressure is 130/70 in his left arm and 134/72 and his right arm. He is resting comfortably in no acute distress. Mucous membranes are moist. Sclerae are anicteric. His extraocular movements were intact. His cranial nerves 2-12 were normal. His trachea was midline. He had a faint carotid bruit on the left side. There was no adenopathy in his anterior or posterior cervical chain. His heart had a regular rate with normal sinus rhythm and no extra murmurs appreciated. His lungs were clear to auscultation bilaterally. His abdomen was soft, round, nondistended, nontender. He has +2 femoral pulses bilaterally. His DP and PT were +1 bilaterally. There was some dependent rubor in his feet bilaterally with no pitting edema. Principal Diagnosis 1. s/p L CEA 2. L ICA stenosis Discharge Exam Neck trachea midline Cardiovascular Rate/Rhythm: regular rate and regular rhythm Neurologic CN's II-XI intact bilaterally and moves all extremities; no focal motor deficits Speech / Cognition: normal speech Psychiatric Orientation: alert and oriented x 3 Discharge Data Allergies Allergy/AdvReac Type Severity Reaction Status Date / Time No Known Allergies Allergy Verified 01/14/19 06:13 Consultations 01/14/19 07:11 Consult Director Career Routine Procedures Performed Operation Date: 01/14/19 07:30 Actual Procedures p Left Internal Carotid Endarterectomy with Patch(Left) - Primo Arnold MD Ordered Studies 01/14/19 06:32 US - OR guided needle placemen Stat 01/14/19 18:33 CT head/brain wo con Stat Hospital Course (1) Left carotid artery stenosis: Patient is doing well post left carotid endarterectomy. D/C home POD #2 Total Time Total Time Spent Total Time Spent (In Minutes): 20 minutes Total Time Includes: Examination of the Patient and Discharge Planning Discharge Plan Discharge Items Patient Disposition: Home - Self-Care Reason For Visit: Left Internal Carotid Artery Stenosis with TIA Discharge Diagnosis: left carotid stenosis Discharge Goals: Therapeutic intervention Activity: Per 'Additional Instructions' section Bathing Comment: may shower Exercise/Sports: Gradually increase as tolerated Driving/Machine Use: Resume 3 days after discharge Non-emergency contact: Surgeon Call non-emergency contact if: you have any medication questions, your symptoms worsen, your pain is not controlled, your pain is worsening, your pain is unusual for you, your pain is concerning for you, your temperature is above 101.5, your wound has increased redness, your wound has increased drainage and your wound pain has increased Follow-up/Referrals: Leilani Alan MD [Primary Care Provider] - Diet: Carb Consistent or DM2 and Heart Healthy Addtl Provider Instructions: SPECIAL CARE INSTRUCTIONS: Medications: * Continue to take Aspirin as directed. Incision Care: * You may shower, but do not rub incision. You may let the warm soapy water run over it. Be sure to dry the incision well after bathing. * Do not shave directly over the incision until it is healed. * DO NOT IMMERSE THE INCISION IN A TUB/POOL/etc. UNTIL HEALED. Restrictions: * Do not drive for at least one week or if you are still taking any narcotic pain medication. * Do not lift anything heavier than a gallon of milk for one week after going home. Possible Complications: * Numbness - It is normal to have some numbness around the incision. Numbness can extend beyond the incision to areas of the neck, ear and face. The numbness is due to bruising of nerves during the surgery and will gradually improve over a period of months. * Hoarseness/Difficulty Speaking and Swallowing - The bruising of nerves in the neck can also cause a hoarse voice, difficulty speaking or swallowing. This may improve over time, HOWEVER, if it continues for more than a few days please contact our office ([phone]). * Excessive Swelling - There will be some swelling immediately after surgery which usually resolves within one week. If you notice that the swelling is getting worse, notify your surgeon ([phone]). * Drainage/Bleeding - If there is any drainage or bleeding, it should be a very small amount (less than a teaspoon per day). If you have excessive bleeding or drainage from the incision, call your surgeon ([phone]) right away. ACTIVATION OF EMERGENCY MEDICAL SYSTEM: Call 911, immediately, if you experience any of the following: Warning Signs and Symptoms of Stroke: * Sudden numbness or weakness of the face, arm or leg, especially on one side of the body * Sudden confusion, trouble speaking or understanding * Sudden trouble seeing in one or both eyes * Sudden trouble walking, dizziness, loss of balance or coordination * Sudden severe headache with no cause Do not delay calling 911 if you experience any warning signs or symptoms of a stroke. Delay in seeking medical attention may affect what treatments can be given to you. Risk Factors for Stroke: You can reduce your chances of stroke by working with your medical provider to adopt a healthy lifestyle. Some specific ways to lower your chance of stroke are: * If you are a smoker, now is the time to stop smoking cigarettes * If you are diabetic, improve the control of your blood sugars * Avoid excessive amounts of alcohol * Control high blood pressure * Lose weight if you are overweight * Be sure to lead an active lifestyle * Eat a healthy diet low in salt, cholesterol and fat You should know about other risk factors for stroke that you are unable to control. These include: * Age 55 years or older * Male gender * Certain racial groups: , or / * Family History of Stroke, Mini stroke or Heart Attack * Sickle Cell Disease You will be receiving a call from the Vascular Surgery Nurse after you are discharged. FOLLOW UP VISIT: It is important for you to keep your follow up appointments with your medical provider. Keep any scheduled doctor appointments. Call [phone] to schedule a follow up appointment if one not already scheduled. Prescriptions: Continued latanoprost [Xalatan] 0.005 % drops 1 drp OPB DAILY RF: 0 lisinopril-hydrochlorothiazide [Zestoretic] 20-12.5 mg tablet 1 tab PO QAM RF: 0 glipizide [Glucotrol XL] 10 mg tablet extended release 24hr 10 mg PO QPM RF: 0 clopidogrel [Plavix] 75 mg tablet 75 mg PO QAM RF: 0 sildenafil [Viagra] 100 mg tablet 50 mg PO UD PRN (Reason: DIRECTED) RF: 0 metformin [Glucophage] 1,000 mg tablet 1,000 mg PO BID RF: 0 cholecalciferol (vitamin D3) [Vitamin D3] 2,000 unit Tablet 2,000 unit PO QAM RF: 0 aspirin 81 mg tablet,delayed release (DR/EC) 81 mg PO DAILY 31 Days Qty: 31 RF: 3 atorvastatin 40 mg tablet 40 mg PO QAM RF: 0 pantoprazole [Protonix] 40 mg tablet,delayed release (DR/EC) 40 mg PO QAM RF: 0 No Action amlodipine [Norvasc] 5 mg tablet 5 mg PO QAM Qty: 90 RF: 1 Stand-Alone Forms: [facility] Discharge Orders: Discharge Order (Routine); Ordered 01/16/19 Ordered By: Primo Arnold Admission Data Admit Date/Time: 01/14/19 07:09 Attending Provider: Primo Arnold Admit Provider: Primo Arnold Primary Care Provider: Leilani Alan Other Providers: Jean Pierre Phillips Service: Surgical Services Other Interventions: Discharge Summary Assessment (RN) Last Done: 01/16/19 09:41 DC Date/Time DO NOT enter until pt leaves facility: 01/16/19 10:12
== END 2019-01-16 10:12 | disposition home or self-care (01) | DRG 38 ==
LOC: ASU 05:41 → 1E 07:09 → 3N 01-15 14:30

== ENCOUNTER 2023-11-29 13:44 | Inpatient (IN) ==
--- NOTE | 2023-11-29 14:15 | ED Triage Note ---
Date of Service November 29, 2023 Provider in Triage Author: Gopal Escalera History of Present Illness This patient was briefly evaluated while in triage. An abbreviated physical exam was performed. This patient is a 78-year-old Male who presents to the ED for evaluation of left hand pain, near 5th MCP joint. On antibiotic, and told to soak in salt water. L 5th digit pain and soreness. L 5th finger in flexed position chronically. Physical Exam GENERAL: 78 year old m,[place]. In no acute distress. SKIN: L ventral hand overlying 5th MCP in edematous, erythematous with visable pus deep to skin surface. HEART: Regular rate and rhythm. LUNGS: Clear to auscultation. NEURO: Alert and oriented. No deficits. MUSCULOSKELETAL: No deformities to inspection of the extremities. PSYCH: Patient is pleasant and answers all questions appropriately. Initial orders for labs and / or imaging were placed and patient was placed in the waiting area until a bed is available. Please see further documentation for the full ED course.
--- NOTE | 2023-11-29 14:17 | Emergency Department Note ---
History of Present Illness General Chief complaint: Infection Stated complaint: LT INFECTED BLISTERS Time Seen by Provider: 11/29/23 14:17 History of Present Illness Maximum Pain Intensity: 8 This is a 78-year-old male that presents to the emergency department via private vehicle with complaints of "left hand infection". This is the patient's nondominant extremity. He states that over the past 2 weeks he has noted some pain and swelling and points to the flexor aspect of the left hand overlying the MCP joint of the left fifth digit. He states that he then saw orthopedics at [facility] on Sunday. He was prescribed cephalexin. He has been compliant with this medication. He notes over the past 48 hours progressive swelling now of the area as well as to yellowish pockets just deep to the skin. To his knowledge there has been no trauma or injury. He notes chronic trigger finger to that area that has been present for at least a year. He notes secondary to this he cannot fully extend the fifth finger at baseline. No fevers or chills. No nausea or vomiting. Home Medications Medication Instructions Recorded Confirmed Type latanoprost 0.005 % eye drops 1 drp OPB QAM 12/10/18 11/29/23 History (Xalatan) atorvastatin 40 mg tablet 40 mg PO QAM 01/08/19 11/29/23 History pantoprazole 40 mg tablet,delayed 40 mg PO QAM 01/08/19 11/29/23 History release (Protonix) clopidogrel 75 mg tablet (Plavix) 75 mg PO QAM #90 tabs 09/09/19 11/29/23 Rx amlodipine 10 mg tablet 10 mg PO QAM 02/09/21 11/29/23 History aspirin 81 mg tablet,delayed 81 mg PO QAM 02/09/21 11/29/23 History release coffee extract 100 mg-phosphatidyl 1 cap PO QAM 02/09/21 11/29/23 History serine 100 mg capsule (Neuriva Original) lisinopril 20 1 tab PO QAM 02/09/21 11/29/23 History mg-hydrochlorothiazide 12.5 mg tablet (Zestoretic) cephalexin 500 mg capsule 500 mg PO QID 11/29/23 11/29/23 History glipizide 10 mg tablet, extended 10 mg PO QAM 11/29/23 11/29/23 History release 24 hr (Glucotrol XL) metformin 500 mg tablet,extended 1,000 mg PO QAM 11/29/23 11/29/23 History release 24 hr sertraline 50 mg tablet 50 mg PO QAM 11/29/23 11/29/23 History Allergies Allergy/AdvReac Type Severity Reaction Status Date / Time No Known Allergies Allergy Verified 11/29/23 16:07 Past Med/Surg History Problem List (Updated 11/29/23 @ 19:49 by Michelle Granger PA-C) Abscess of left hand Infection of left hand Contracture of joint of finger of left hand (Acute) Cellulitis of hand, left (Acute) Interatrial cardiac shunt Thalamic stroke PFO (patent foramen ovale) Visual field defect (Acute) Hypertension (Acute) Left carotid artery stenosis Encounter for pre-operative examination Diabetes type 2, controlled (Chronic) Hypertension (Chronic) Dyslipidemia (Chronic) Cerebrovascular disease (Chronic) "old lacunar infarct left caudate noted on MRI 09/10/14" Back pain (Chronic) Carotid artery disease (Chronic) GERD (gastroesophageal reflux disease) (Chronic) Status post cataract extraction (Chronic) H/O hemorrhoidectomy (Chronic) S/P laser trabeculoplasty of eye (Chronic) Hx of tonsillectomy (Chronic) History of cataract surgery (Chronic) Injury of left little finger (Acute) Aphasia (Acute) Hypomagnesemia (Acute) DVT prophylaxis Acute exacerbation of chronic low back pain (Acute) BMI 31.0-31.9,adult (Acute) Carotid stenosis (Acute) Chronic back pain (Acute) Concentration deficit (Acute) Confusion (Acute) Controlled type 2 diabetes mellitus with diabetic polyneuropathy (Acute) Deformity, hand (Acute) Depression (Acute) Diabetic peripheral neuropathy (Acute) Disc degeneration, lumbar (Acute) Dizziness (Acute) Erectile dysfunction (Acute) Fatigue (Acute) GERD without esophagitis (Acute) Gait disturbance (Acute) Hypertriglyceridemia (Acute) Hypokalemia (Acute) Idiopathic polyneuropathy (Acute) Lumbar spinal stenosis (Acute) Lyme disease (Acute) Neurogenic claudication due to lumbar spinal stenosis (Acute) Numbness in both legs (Acute) Poor balance (Acute) Post-nasal drainage (Acute) Restless legs syndrome (Acute) Right shoulder pain (Acute) Segmental and somatic dysfunction of abdomen and other regions (Acute) Segmental and somatic dysfunction of lumbar region (Acute) Segmental and somatic dysfunction of thoracic region (Acute) Spinal arthritis (Acute) Stenosis of right carotid artery (Acute) Approx 30 percent stenosis at the right internal carotid artery, noted august 2014 Thoracic disc disease (Acute) Transient ischemic attack, acute (Acute) Visual changes (Acute) Vitamin D deficiency (Acute) Cough with expectoration History of acute bronchitis History of pneumococcal vaccination Rash of body History of ankle surgery 1990 - RIGHT Somatic dysfunction of right upper extremity Medical History Carotid stenosis Degenerative disc disease Spinal stenosis Arthritis IN BACK Lyme disease DX LYME 2 YR AGO, TREATED. RECENTLY TIRED AND ACHY Diabetes Need for hepatitis C screening test accepted july 2017 TIA (transient ischemic attack) FIRST INSTANCE 2015, WAS STARTED ON PLAVIX. DECEMBER 10 2018 ([facility]), WORD FINDING ISSUES/APHASIA. GERD (gastroesophageal reflux disease) HTN (hypertension) Surgical History History of CEA (carotid endarterectomy) 01-14-2019, Dr. Primo Arnold History of left cataract extraction History of right cataract extraction History of eye surgery DETACHED RETINA AND PROCEDURE FOR COMPLICATION - RIGHT History of colonoscopy History of arthroscopy RIGHT ANKLE Family History Mother Stroke Father Stroke Denies family history of Ovarian cancer Prostate cancer Myocardial infarction Breast cancer Colorectal cancer Social History Smoking Status: Never smoker Cigarettes Per Day: OCC CIGAR - ADVISED NPO; Do You Dip or Chew Tobacco: No; Hx Alcohol Use: Yes Alcohol type: beer Alcohol Intake Frequency Comment: 2-3 beers per week Hx Substance Use: No Preferred Language: Indonesian Communication Ability: Effective Communication Ability Comment: 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 Visual Impairment: Limited Hearing Ability: Use of Hearing Aid Aircraft Restorer Required: No Beliefs That Will Affect Care: None marital status: Current Living Situation: Spouse current occupational status: retired Feels Safe at Home: Yes Dental Care, Regularly: Yes Physical Activity Frequency: Does not Exercise Assistive Devices: Glasses Review of Systems A total of 10 systems reviewed and were otherwise negative Physical Exam Vital Signs Vital Signs - 24 hr 11/29/23 14:14 Temperature 36.5 C Temperature Source Oral Pulse Rate 73 Respiratory Rate 16 Respiratory Effort / Characteristics Non-Labored Respiratory Depth Normal Blood Pressure 134/83 Blood Pressure Mean 100 Pulse Oximetry 96 Oxygen Delivery Method Room Air Sepsis Recent Fever Within 48 Hours No Sepsis New/Unexplained Change in Mental Status No Sepsis Action Taken by Nursing No Action Required VITAL SIGNS - Vital signs and nursing notes were reviewed. Stable and afebrile. GENERAL -78-year-old male appearing his stated age who is in no acute distress. Communicates well with provider and answers questions appropriately. SKIN -visual representation by picture above. The flexor aspect of the left fifth MCP joint is diffusely edematous, erythematous with yellowish purulence seen just deep to the surface. Similar appearance just proximal to that overlying same distribution. HEAD - NC/AT. EYES - Sclera anicteric. NECK - No nuchal rigidity. LUNGS - CTA CARDIAC - RRR EXTREMITIES - No clubbing or peripheral cyanosis. Skin as above. Diffuse tenderness overlying the distal flexor aspect of the fifth metacarpal with palpable fluctuance at 2 separate areas overlying the distal fifth metacarpal. Left fifth digit in flexion at the MCP joint. The distal left fifth digit is appropriately warm and well-perfused. Capillary fill within normal limits. +5/5 strength noted in UE/LE bilaterally. NEUROLOGIC -sensory intact throughout the left upper extremity without deficit PSYCH -alert, oriented and pleasant on exam. Course Administered Medications Insulin Aspart (Insulin Aspart Per Unit Charge) 0 units SC ACHS [facility] Stop: 12/29/23 17:56 Last Admin: 11/29/23 22:01 Dose: Not Given Documented By: KATHI Co-signed By: MACKENZIE Admin: 11/29/23 19:23 Dose: Not Given Documented By: IDD Co-signed By: MATY Insulin Glargine (Lantus Per Unit Charge) 0 units SQ BID SRIRAM Stop: 12/29/23 20:59 Last Admin: 11/29/23 22:00 Dose: 5 units Documented By: KATHI Co-signed By: MACKENZIE Discontinued Medications Ampicillin Sodium/Sulbactam Sodium 3,000 mg/ Sodium Chloride 100 mls @ 200 mls/hr IV NOW STA Stop: 11/29/23 15:48 Last Infusion: 11/29/23 16:38 Dose: Infused Documented By: Admin: 11/29/23 15:40 Dose: 200 mls/hr Documented By: BRITNI Vancomycin HCl 1,750 mg/ (Sodium Chloride) 535 mls @ 200 mls/hr IV NOW ONE Stop: 11/29/23 17:59 Last Infusion: 11/29/23 21:57 Dose: Infused Documented By: Admin: 11/29/23 18:14 Dose: 200 mls/hr Documented By: ROSALINDA Medical Decision Making Laboratory Data 11/29/23 14:31 11/29/23 14:31 Lab Results 11/29/23 Range/Units 14:31 WBC 10.81 H (4.8-10.8) K/ul RBC 5.30 (4.70-6.10) M/uL Hgb 14.8 (14.0-18.0) g/dl Hct 43.9 (42.0-52.0) % MCV 82.8 (80.0-100.0) fL MCH 27.9 (25.0-34.0) pg MCHC 33.7 (32.0-36.0) g/dL RDW Std Deviation 41.0 (36.4-46.3) fL RDW Coeff of Zeina 13.6 (11.5-14.5) % Plt Count 263 (130-400) K/uL MPV 10.2 (9.4-12.4) fL Immature Gran % (Auto) 0.4 % Neut % (Auto) 68.0 % Lymph % (Auto) 16.2 % [place] % (Auto) 9.3 % Eos % (Auto) 5.4 % Baso % (Auto) 0.7 % Neut # (Auto) 7.35 H (1.40-6.50) K/uL Lymph # (Auto) 1.75 (1.20-3.40) K/uL [place] # (Auto) 1.01 H (0.11-0.59) K/uL Eos # (Auto) 0.58 H (0.00-0.50) K/uL Baso # (Auto) 0.08 (0.00-0.20) K/uL Immature Gran # (Auto) 0.04 (0.01-0.20) K/uL ESR 19 (0-20) mm/hr Sodium 134 L (136-145) mmol/L Potassium 4.2 (3.5-5.1) mmol/L Chloride 102 (98-107) mmol/L Carbon Dioxide 27 (21-32) mmol/L Anion Gap 5 (3-11) BUN 19 (6-23) mg/dl Creatinine 1.19 (0.6-1.4) mg/dl Est Cr Clr Drug Dosing 57.1 ml/min Est GFR ( Amer) 67.9 ml/min Est GFR (Non-Af Amer) 58.6 ml/min BUN/Creatinine Ratio 16.0 (10-20) Glucose 220 H (70-99(Fasting)) mg/dl Lactate 1.6 (0.4-2.0) mmol/L Calcium 9.7 (8.6-10.3) mg/dl Total Bilirubin 0.4 (0.2-1.0) mg/dl AST 12 L (13-39) U/L ALT 13 (7-52) U/L Alkaline Phosphatase 89 (34-104) U/L C-Reactive Protein 0.52 H (0-0.5) mg/dl Total Protein 7.0 (6.0-8.3) gm/dl Albumin 4.2 (3.4-5.0) gm/dl Globulin 2.8 (2.5-4.0) gm/dl Albumin/Globulin Ratio 1.5 (0.9-2) Procalcitonin 0.04 (0-0.5) ng/ml Imaging Data Radiologist's Impression: Hand X-Ray 11/29/23 14:16 XR hand LT min 3V routine CLINICAL HISTORY: L 5th MCP joint area with infection COMPARISON: Left fifth finger radiographs July 29, 2016. FINDINGS: Chronic deformity of the left fifth finger. No fractures within the left hand are present. No areas of bony erosion are present. There is no soft tissue gas. A 3 mm subcutaneous metallic density of the medial left hand at the level of the mid metacarpals is unchanged since radiographs of July 29, 2016. There is an additional metallic foreign body within the second finger. 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 IMPRESSION: 1. No fractures within the left hand. No radiographic evidence for acute osteomyelitis. 2. Chronic deformity of the left fifth finger. 3. No change in a 3 mm metallic foreign body within the medial left hand since radiographs of July 29, 2016. Additional small metallic foreign body within the left second finger. ACT 112: Negative or not required by law. Electronically signed by: Bandar Troy M.D. 11/29/2023 3:25 PM MDM Narrative Patient was seen and evaluated as above in room D02b. Triage notes and vital signs reviewed. A thorough history and physical examination was performed. Patient presents to us today with progressive swelling to the flexor aspect of the left fifth digit/MCP joint of the left hand. Daughter at bedside does provide pictures over the past few days and there has been progressive and significant worsening over the past 48 hours. He has been on cephalexin over the past 2 days. He is overall well-appearing and nontoxic. Options of care were discussed with the patient. IV access was established. Labs were drawn. Mild leukocytosis 10.81. No anemia. Mild hyponatremia 134. No evidence of emergent kidney or liver failure. Hyperglycemia at 220. CRP mildly elevated at 0.52. ESR high normal. Lactate 1.6. Pro-Betito 0.04. Blood culture pending. Hand x-ray per my interpretation reveals some radiopaque foreign bodies but not at the site of interest. There are no fractures. I did order IV vancomycin and IV Unasyn for additional coverage. Picture was taken after obtaining consent from the patient. Pictures were sent to the on-call visual specialist as well as a picture was also uploaded to the chart and viewable in the physical exam section of this note. In speaking with orthopedics (Dr. Regan at 1527hrs) we discussed several options such as changing the antibiotic to clindamycin and discharge for close outpatient follow-up versus admission to the hospital. At this time I do believe that admission is warranted noting the patient's progressive symptoms that have been rather rapid in the setting of patient's comorbidities and 48 hours of antibiotics. Although there are other etiologies to patient's presentation that are noninfectious, we will cover for infection at this time pending further evaluation and management. Case discussed with the hospitalist service. Patient will be admitted to hospitalist service with orthopedic consult. Patient as well as daughter at bedside amenable to this plan. Please refer to further documentation regarding his stay. GCS: 15 In the evaluation and treatment of this patient the following differential diagnoses were entertained: Dupuytren's contracture, cellulitis, abscess, fracture, dislocation, subluxation, contusion, among others. I was then notified by the nurse that Dr. Regan came down to evaluate the patient and performed I&D at bedside. A culture was taken. I then placed an order for the culture. Upon repeat evaluation of the patient, they note that in speaking with orthopedics plan is possible discharged home. I had a thorough discussion of this regarding benefit versus risk of inpatient versus outpatient management with the patient as well as daughter at bedside. I also spoke again with Dr. Regan at 1741 PM. I am concerned noting the patient's comorbidities, hyperglycemia, as well as suspicion of infection today in the setting of 2 days of antibiotic use with worsening symptoms. In discussing options further with family and patient we will proceed with inpatient management to manage comorbidities as well as current infection. Impression & Plan Cellulitis of hand, left, Contracture of joint of finger of left hand Discharge Plan Visit Data Chief Complaint: Infection Stated Complaint: LT INFECTED BLISTERS ED Provider: Lisa Retana ED Midlevel Provider: Gopal Escalera Discharge Problem: Cellulitis of hand, left, Contracture of joint of finger of left hand Patient Disposition: Admitted As Inpatient Condition: Good Discharge Instructions Interventions: ED Discharge Assessment Last Done: 11/29/23 17:57
[2023-11-29 14:56] LABS: Basophils # (auto) 0.08 K/uL (0.00-0.20); Basophils % (auto) 0.7 %; Eosinophils # (auto) 0.58 K/uL (0.00-0.50); Eosinophils % (auto) 5.4 %; Hematocrit (blood only) 43.9 % (42.0-52.0); Hemoglobin 14.8 g/dl (14.0-18.0); Immature Granulocytes # (auto) 0.04 K/uL (0.01-0.20); Immature Granulocytes % (auto) 0.4 %; Lymphocytes # (auto) 1.75 K/uL (1.20-3.40); Lymphocytes % (auto) 16.2 %; Mean Corpuscular Hemoglobin 27.9 pg (25.0-34.0); Mean Corpuscular Hgb Conc 33.7 g/dL (32.0-36.0); Mean Corpuscular Volume 82.8 fL (80.0-100.0); Mean Platelet Volume 10.2 fL (9.4-12.4); Monocytes # (auto) 1.01 K/uL (0.11-0.59); Monocytes % (auto) 9.3 %; Neutrophils # (auto) 7.35 K/uL (1.40-6.50); Platelet Count 263 K/uL (130-400); RDW Coefficient of Variation 13.6 % (11.5-14.5); White Blood Count 10.81 K/ul (4.8-10.8)
[2023-11-29 15:09] LABS: Albumin Globulin Ratio 1.5 (0.9-2); Albumin Level 4.2 gm/dl (3.4-5.0); Bilirubin,Total 0.4 mg/dl (0.2-1.0); C Reactive Protein 0.52 mg/dl (0-0.5); Calcium 9.7 mg/dl (8.6-10.3); Creatinine Clr Calc Pharmacy 57.1 ml/min; Est GFR (African American) 67.9 ml/min; Est GFR (Non-African American) 58.6 ml/min; Globulin 2.8 gm/dl (2.5-4.0); Potassium 4.2 mmol/L (3.5-5.1)
[2023-11-29] MEDS ORDERED: VANCOMYCIN CONSULT ACTIVE PRN (15:19)
--- NOTE | 2023-11-29 15:27 | XRay Report ---
XR hand LT min 3V routine CLINICAL HISTORY: L 5th MCP joint area with infection COMPARISON: Left fifth finger radiographs July 29, 2016. FINDINGS: Chronic deformity of the left fifth finger. No fractures within the left hand are present. No areas of bony erosion are present. There is no soft tissue gas. A 3 mm subcutaneous metallic dens ity of the medial left hand at the level of the mid metacarpals is unchanged since radiographs of Jul. There is an additional metallic foreign body within the second finger. There is modera te osteoarthritis of the left first carpometacarpal joint. IMPRESSION: 1. No fractures within the left hand. No radiographic evidence for acute osteomyelitis. 2. Chronic deformity of the left fifth finger. 3. No change in a 3 mm metallic foreign body within the medial left hand since radiographs of July 29, 2016. Additional small metallic foreign body within the left second finger. ACT 112: Negative or not required by law. Electronically signed by: Bandar Troy M.D. 11/29/2023 3:25 PM
[2023-11-29] MEDS: AMPICILLIN/SULBACTAM SOD 3,000 MG in SODIUM CHLOR 0.9% MINI-B 100 ML IV STA (15:40)
--- NOTE | 2023-11-29 16:13 | History & Physical Report ---
Date of Service November 29, 2023 Assessment & Plan (1) Contracture of joint of finger of left hand: (2) Abscess of left hand: (3) Infection of left hand: (4) Diabetes type 2, controlled: (5) Hypertension: (6) Dyslipidemia: (7) Cerebrovascular disease: Plan This is a 78-year-old male who has a significant past medical history of T2DM, HTN, HLD, PFO, bilateral carotid stenosis status post left CEA in 2019, CVA with decreased vision in 2019, depression, anxiety, history of retinal detachment, mild cognitive impairment and mild aortic valve stenosis who presents to ED secondary to worsening infection of his left fifth digit. Left hand infection of based of left fifth digit Chronic left fifth finger Dupuytren's contracture Admit to medical He was seen and evaluated by orthopedics in ED and is status post I&D at bedside Await culture Blood culture also obtained He does not meet sepsis criteria Continue IV antibiotics with Vanco and Rocephin and de-escalate upon culture results According to orthopedics continue with gauze and daily dry dressings T2DM Last A1c in August was 7.6 Hold metformin and glipizide Lantus/NovoLog per protocol Encouraged tighter control for wound healing HTN Chronic, stable Continue amlodipine, lisinopril and HCTZ Hyperlipidemia Continue statin History of CVA Carotid artery stenosis status post left CEA in 2019 Continue ASA and Plavix Small PFO with intra-atrial shunt Follows with cardiology DVT ppx: SCDS while pt is already on asa,plavix therapy, encourage ambulation FULL CODE PCP: Dr. Prieto Dispo: admit to medical, await culture results for appropriate deescalation of IV antibiotics to oral, will need Hand specialist follow up with Seferino or jessica Pt was seen and examined in collaboration wit Dr. Spencer, please see addendum A total of 65 minutes was spent coordinating, documenting, and providing care for this patient excluding time spent in the performance of separately billed services. This included personally viewing all current laboratories and imaging studies, medication reconciliation, outpatient chart review, and discussion with specialists. History of Present Illness Chief Complaint: Infected left 5th finger. Primary Care Provider: Sammi Prieto MD This is a 78-year-old male who has a significant past medical history of T2DM, HTN, HLD, PFO, bilateral carotid stenosis status post left CEA in 2019, CVA with decreased vision in 2019, depression, anxiety, history of retinal detachment, mild cognitive impairment and mild aortic valve stenosis who presents to ED secondary to worsening infection of his left fifth digit. Of significance patient was seen at PCP office on 11/20 due to pain in his left fifth digit. He has had a contracture to this left fifth digit for several years but just started causing pain. This has since progressed to increased redness and abscess formation at the base of his left fifth finger. He was seen and evaluated by orthopedics on 11/27/2023. He was prescribed a course of oral Keflex but due to worsening presented to ED today. 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 He denies any trauma or puncture wounds. He denies any injury to hand. He has started antibiotic but over past 48hrs he has had significant increase in swelling with what appears to be abscess formation. He denies any f/c/s, chest pain, sob, n/v/d, abd pain, change in bowel or bladder. He otherwise feels well. Allergies Allergy/AdvReac Type Severity Reaction Status Date / Time No Known Allergies Allergy Verified 11/29/23 16:07 Home Medications Medication Instructions Recorded Confirmed Type latanoprost 0.005 % eye drops 1 drp OPB QAM 12/10/18 11/29/23 History (Xalatan) atorvastatin 40 mg tablet 40 mg PO QAM 01/08/19 11/29/23 History pantoprazole 40 mg tablet,delayed 40 mg PO QAM 01/08/19 11/29/23 History release (Protonix) clopidogrel 75 mg tablet (Plavix) 75 mg PO QAM #90 tabs 09/09/19 11/29/23 Rx amlodipine 10 mg tablet 10 mg PO QAM 02/09/21 11/29/23 History aspirin 81 mg tablet,delayed 81 mg PO QAM 02/09/21 11/29/23 History release coffee extract 100 mg-phosphatidyl 1 cap PO QAM 02/09/21 11/29/23 History serine 100 mg capsule (Neuriva Original) lisinopril 20 1 tab PO QAM 02/09/21 11/29/23 History mg-hydrochlorothiazide 12.5 mg tablet (Zestoretic) cephalexin 500 mg capsule 500 mg PO QID 11/29/23 11/29/23 History glipizide 10 mg tablet, extended 10 mg PO QAM 11/29/23 11/29/23 History release 24 hr (Glucotrol XL) metformin 500 mg tablet,extended 1,000 mg PO QAM 11/29/23 11/29/23 History release 24 hr sertraline 50 mg tablet 50 mg PO QAM 11/29/23 11/29/23 History Past Med/Surg History Problem List (Updated 11/29/23 @ 19:49 by Michelle Granger PA-C) Abscess of left hand Infection of left hand Contracture of joint of finger of left hand (Acute) Cellulitis of hand, left (Acute) Interatrial cardiac shunt Thalamic stroke PFO (patent foramen ovale) Visual field defect (Acute) Hypertension (Acute) Left carotid artery stenosis Encounter for pre-operative examination Diabetes type 2, controlled (Chronic) Hypertension (Chronic) Dyslipidemia (Chronic) Cerebrovascular disease (Chronic) "old lacunar infarct left caudate noted on MRI 09/10/14" Back pain (Chronic) Carotid artery disease (Chronic) GERD (gastroesophageal reflux disease) (Chronic) Status post cataract extraction (Chronic) H/O hemorrhoidectomy (Chronic) S/P laser trabeculoplasty of eye (Chronic) Hx of tonsillectomy (Chronic) History of cataract surgery (Chronic) Injury of left little finger (Acute) Aphasia (Acute) Hypomagnesemia (Acute) DVT prophylaxis Acute exacerbation of chronic low back pain (Acute) BMI 31.0-31.9,adult (Acute) Carotid stenosis (Acute) Chronic back pain (Acute) Concentration deficit (Acute) Confusion (Acute) Controlled type 2 diabetes mellitus with diabetic polyneuropathy (Acute) Deformity, hand (Acute) Depression (Acute) Diabetic peripheral neuropathy (Acute) Disc degeneration, lumbar (Acute) Dizziness (Acute) Erectile dysfunction (Acute) Fatigue (Acute) GERD without esophagitis (Acute) Gait disturbance (Acute) Hypertriglyceridemia (Acute) Hypokalemia (Acute) Idiopathic polyneuropathy (Acute) Lumbar spinal stenosis (Acute) Lyme disease (Acute) Neurogenic claudication due to lumbar spinal stenosis (Acute) Numbness in both legs (Acute) Poor balance (Acute) Post-nasal drainage (Acute) Restless legs syndrome (Acute) Right shoulder pain (Acute) Segmental and somatic dysfunction of abdomen and other regions (Acute) Segmental and somatic dysfunction of lumbar region (Acute) Segmental and somatic dysfunction of thoracic region (Acute) Spinal arthritis (Acute) Stenosis of right carotid artery (Acute) Approx 30 percent stenosis at the right internal carotid artery, noted august 2014 Thoracic disc disease (Acute) Transient ischemic attack, acute (Acute) Visual changes (Acute) Vitamin D deficiency (Acute) Cough with expectoration History of acute bronchitis History of pneumococcal vaccination Rash of body History of ankle surgery 1990 - RIGHT Somatic dysfunction of right upper extremity Medical History Carotid stenosis Degenerative disc disease Spinal stenosis Arthritis IN BACK Lyme disease DX LYME 2 YR AGO, TREATED. RECENTLY TIRED AND ACHY Diabetes Need for hepatitis C screening test accepted july 2017 TIA (transient ischemic attack) FIRST INSTANCE 2015, WAS STARTED ON PLAVIX. DECEMBER 10 2018 ([facility]), WORD FINDING ISSUES/APHASIA. GERD (gastroesophageal reflux disease) HTN (hypertension) Surgical History History of CEA (carotid endarterectomy) 01-14-2019, Dr. Primo Arnold History of left cataract extraction History of right cataract extraction History of eye surgery DETACHED RETINA AND PROCEDURE FOR COMPLICATION - RIGHT History of colonoscopy History of arthroscopy RIGHT ANKLE Family History Mother Stroke Father Stroke Denies family history of Ovarian cancer Prostate cancer Myocardial infarction Breast cancer Colorectal cancer Social History Smoking Status: Never smoker Cigarettes Per Day: OCC CIGAR - ADVISED NPO; Do You Dip or Chew Tobacco: No; Hx Alcohol Use: Yes Alcohol type: beer Alcohol Intake Frequency Comment: 2-3 beers per week Hx Substance Use: No Preferred Language: Nigerien Communication Ability: Effective Communication Ability Comment: 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 Spencer addendum for physical exam findings. Results & Data Results & Data Vital Signs (Past 12 Hours) Vital Signs Temp Pulse Resp BP Pulse Ox O2 Del Method 11/29/23 14:14 36.5 C 73 16 134/83 96 Room Air Diagnostic Findings Hand X-Ray 11/29/23 14:16 XR hand LT min 3V routine CLINICAL HISTORY: L 5th MCP joint area with infection COMPARISON: Left fifth finger radiographs July 29, 2016. FINDINGS: Chronic deformity of the left fifth finger. No fractures within the left hand are present. No areas of bony erosion are present. There is no soft tissue gas. A 3 mm subcutaneous metallic density of the medial left hand at the level of the mid metacarpals is unchanged since radiographs of July 29, 2016. There is an additional metallic foreign body within the second finger. 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 IMPRESSION: 1. No fractures within the left hand. No radiographic evidence for acute osteomyelitis. 2. Chronic deformity of the left fifth finger. 3. No change in a 3 mm metallic foreign body within the medial left hand since radiographs of July 29, 2016. Additional small metallic foreign body within the left second finger. ACT 112: Negative or not required by law. Electronically signed by: Bandar Troy M.D. 11/29/2023 3:25 PM Medications Administered Medication List Discontinued Medications Ampicillin Sodium/Sulbactam Sodium 3,000 mg/ Sodium Chloride 100 mls @ 200 mls/hr IV NOW STA Stop: 11/29/23 15:48 Last Admin: 11/29/23 15:40 Dose: 200 mls/hr Documented By: BRITNI COVID-19 Results Results COVID-19 Adm Lab Results: RBC 5.30 M/uL (4.70-6.10) 11/29/23 WBC 10.81 K/ul (4.8-10.8) H 11/29/23 Hgb 14.8 g/dl (14.0-18.0) 11/29/23 Hct 43.9 % (42.0-52.0) 11/29/23 Plt Count 263 K/uL (130-400) 11/29/23 Neutrophils (%) (Auto) 68.0 % 11/29/23 Lymphocytes (%) (Auto) 16.2 % 11/29/23 Monocytes # (Auto) 1.01 K/uL (0.11-0.59) H 11/29/23 Eosinophils # (Auto) 0.58 K/uL (0.00-0.50) H 11/29/23 Immature Granulocyte % (Auto) 0.4 % 11/29/23 Neutrophils # (Auto) 7.35 K/uL (1.40-6.50) H 11/29/23 Lymphocytes # (Auto) 1.75 K/uL (1.20-3.40) 11/29/23 Monocytes # (Auto) 1.01 K/uL (0.11-0.59) H 11/29/23 Eosinophils # (Auto) 0.58 K/uL (0.00-0.50) H 11/29/23 Basophils # (Auto) 0.08 K/uL (0.00-0.20) 11/29/23 Immature Granulocyte # (Auto) 0.04 K/uL (0.01-0.20) 4 Na 134 mmol/L (136-145) L 11/29/23 K 4.2 mmol/L (3.5-5.1) 11/29/23 Cl 102 mmol/L (98-107) 11/29/23 CO2 27 mmol/L (21-32) 11/29/23 Anion Gap 5 (3-11) 11/29/23 BUN 19 mg/dl (6-23) 11/29/23 Creatinine 1.19 mg/dl (0.6-1.4) 11/29/23 BUN/Creatinine Ratio 16.0 (10-20) 11/29/23 Glucose Level 220 mg/dl (70-99(Fasting)) H 11/29/23 Ca 9.7 mg/dl (8.6-10.3) 11/29/23 Total Bilirubin 0.4 mg/dl (0.2-1.0) 11/29/23 AST/SGOT 12 U/L (13-39) L 11/29/23 ALT/SGPT 13 U/L (7-52) 11/29/23 Alkaline Phosphatase 89 U/L (34-104) 11/29/23 Total Protein 7.0 gm/dl (6.0-8.3) 11/29/23 Albumin 4.2 gm/dl (3.4-5.0) 11/29/23 Globulin 2.8 gm/dl (2.5-4.0) 11/29/23 Albumin/Globulin Ratio 1.5 (0.9-2) 11/29/23 CRP 0.52 mg/dl (0-0.5) H 11/29/23 Procalcitonin 0.04 ng/ml (0-0.5) 11/29/23 Code Status & VTE Plan Code Status FULL CODE VTE Prophylaxis Plan VTE Prophylaxis will be ordered: Yes Supervising Physician Co-Signing Physician Notes I have seen and discussed the case with the collaborating advanced practitioner. I agree with the above H&P. I have reviewed and confirmed the patients medical history, the findings on physical examination, and the patients diagnosis and treatment plan with Elkin BARRIENTOS and agree with the information documented. In short, Mr. Kay is a 78 year old man with T2DM, HTN, HLD, PFO, bilateral carotid stenosis status post left CEA in 2019, CVA with decreased vision in 2019, depression, anxiety, history of retinal detachment, mild cognitive impairment and mild aortic valve stenosis who is admitted for IV antibiotics and monitoring of left abscess I&D. Family concern to bring him home given multiple comorbidities and "failure of op antibiotics. GENERAL APPEARANCE: AxOx4, generally well-appearing male, no acute distress. HEENT: NC, AT. MMM. EOMI, clear conjunctiva, oropharynx clear. NECK: Supple without lymphadenopathy. No stiffness or restricted ROM. HEART: Normal rate and regular rhythm, normal S1/S1, no m/r/g LUNGS: CTAB, moving air well. No crackles or wheezes are heard. ABDOMEN: Soft, nontender, nondistended with good bowel sounds heard. BACK: No CVAT, no obvious deformity. EXTREMITIES: Without cyanosis, clubbing or edema. left hand with gauze in place, contract 5th digit NEUROLOGICAL: Grossly nonfocal. Alert and oriented, moving all 4 extremities. CN not formally tested but appear grossly intact. Skin: Warm and dry without any rash. #left hand abscess s/p ID Dr Regan, deroofed lesion in ED--recommended discharge, however family very concerned Keep overnight for IV abx, cultures rest of plan as above I spent a total of 35 minutes coordinating, documenting, and providing care for this patient excluding time spent in the performance of separately billed services. All of the aforementioned completed outside of collaborating with the assigned advanced practitioner for a full treatment plan. I have reviewed the advanced practitioner's documentation, and I agree with, and take responsibility for the plan of care
[2023-11-29] MEDS ORDERED: GLUCOSE 40% GEL 15 GM TUBE PO PRN (17:57)
[2023-11-29] MEDS ORDERED: ACETAMINOPHEN 325 MG TAB PO PRN (17:57)
[2023-11-29] MEDS ORDERED: GLUCAGON FOR INJ 1 MG VIAL SQ PRN (17:57)
[2023-11-29] MEDS ORDERED: POLYETHYLENE (MIRALAX) 17 GM PACK PO PRN (17:57)
[2023-11-29] MEDS ORDERED: MAGNESIUM HYDROXIDE SUSP 30 ML UDC PO PRN (17:57)
[2023-11-29] MEDS ORDERED: GLUCOSE 10 TAB/TUBE PO PRN (17:57)
[2023-11-29] MEDS ORDERED: ONDANSETRON INJ 2 MG/ML 2 ML VIAL IV PRN (17:57)
[2023-11-29] MEDS ORDERED: CARBOHYDRATES FOR HYPOGLYCEMIA PO PRN (17:57)
[2023-11-29] MEDS ORDERED: DEXTROSE 50% 50 ML SYRINGE IV PRN (17:57)
[2023-11-29] MEDS ORDERED: ALUMINUM/MAGNESIUM SUSP 30 ML UDC PO PRN (17:57)
[2023-11-29] MEDS: VANCOMYCIN HCL 1,750 MG in SODIUM CHLORIDE 0.9% 500 ML IV ONE (18:14)
--- NOTE | 2023-11-29 18:32 | Pharmacy Report ---
Pharmacy PK ABX Note - Date of Service November 29, 2023 - Assessment and Plan Assessment 78 year old M receiving vancomycin/Unasyn for treatment of a finger infection. Pertinent microbiologic data includes: finger culture and blood cultures pending Day # 1 of antimicrobial therapy. Plan Vancomycin * Loading dose: 1750 mg IV x 1 * Maintenance dose: 750 mg IV every 12 hours * Regimen is predicted to achieve target AUC/GUICHO of 400-600 mg/L.hr * Random level ordered for: 12/01/23 @530 Pharmacy will continue to follow and will adjust dose/frequency as necessary. Thank you. Pharmacy has transitioned to AUC monitoring for vancomycin. AUC/GUICHO is the preferred PK/PD target and is associated with decreased risk of nephrotoxicity compared to traditional trough targets.
[2023-11-29] MEDS: INSULIN ASPART PER UNIT CHARGE SC SCH (19:23)
--- NOTE | 2023-11-29 21:57 | Orthopedic Consultation ---
Date of Consultation November 29, 2023 Assessment & Plan (1) Abscess of left hand: 78 male with left fifth metacarpal volar abscess. Elevate left upper extremity Weightbearing as tolerated Antibiotic therapy Follow-up cultures In the emergency department a bedside I&D was performed sima purulence was noted from the wound and was be able to be expressed. This decompressed the abscess. Cultures were obtained and sent to the lab for analysis. Soft dressing was applied. No further orthopedic intervention at this time. Would recommend course of antibiotics and may follow-up with [facility] hand team as an outpatient. No further orthopedic invention at this time. Will sign off History of Present Illness Reason for Consultation: Left hand abscess Attending Physician: Monisha Spencer MD History of Present Illness 78 old male with several history of swelling in his left hand. He notes longtime history of small finger contracture and stiffness. He reports that he was seen by [facility] orthopedics 2 days ago and given oral Keflex. Over the past 2 days the swelling has increased causing him to present to the emergency department today. Swelling is localized to the volar aspect of the fifth metacarpal near the MCP joint and distal palmar crease. Denies any active drainage. Orthopedics was consulted for evaluation Allergies Allergy/AdvReac Type Severity Reaction Status Date / Time No Known Allergies Allergy Verified 11/29/23 16:07 Home Medications Medication Instructions Recorded Confirmed Type latanoprost 0.005 % eye drops 1 drp OPB QAM 12/10/18 11/29/23 History (Xalatan) atorvastatin 40 mg tablet 40 mg PO QAM 01/08/19 11/29/23 History pantoprazole 40 mg tablet,delayed 40 mg PO QAM 01/08/19 11/29/23 History release (Protonix) clopidogrel 75 mg tablet (Plavix) 75 mg PO QAM #90 tabs 09/09/19 11/29/23 Rx amlodipine 10 mg tablet 10 mg PO QAM 02/09/21 11/29/23 History aspirin 81 mg tablet,delayed 81 mg PO QAM 02/09/21 11/29/23 History release coffee extract 100 mg-phosphatidyl 1 cap PO QAM 02/09/21 11/29/23 History serine 100 mg capsule (Neuriva Original) lisinopril 20 1 tab PO QAM 02/09/21 11/29/23 History mg-hydrochlorothiazide 12.5 mg tablet (Zestoretic) cephalexin 500 mg capsule 500 mg PO QID 11/29/23 11/29/23 History glipizide 10 mg tablet, extended 10 mg PO QAM 11/29/23 11/29/23 History release 24 hr (Glucotrol XL) metformin 500 mg tablet,extended 1,000 mg PO QAM 11/29/23 11/29/23 History release 24 hr sertraline 50 mg tablet 50 mg PO QAM 11/29/23 11/29/23 History Patient History Medical History Carotid stenosis Degenerative disc disease Spinal stenosis Arthritis IN BACK Lyme disease DX LYME 2 YR AGO, TREATED. RECENTLY TIRED AND ACHY Diabetes Need for hepatitis C screening test accepted july 2017 TIA (transient ischemic attack) FIRST INSTANCE 2015, WAS STARTED ON PLAVIX. DECEMBER 10 2018 ([facility]), WORD FINDING ISSUES/APHASIA. GERD (gastroesophageal reflux disease) HTN (hypertension) Surgical History History of CEA (carotid endarterectomy) 01-14-2019, Dr. Primo Arnold History of left cataract extraction History of right cataract extraction History of eye surgery DETACHED RETINA AND PROCEDURE FOR COMPLICATION - RIGHT History of colonoscopy History of arthroscopy RIGHT ANKLE Family History Mother Stroke Father Stroke Denies family history of Ovarian cancer Prostate cancer Myocardial infarction Breast cancer Colorectal cancer Social History Smoking Status: Never smoker Cigarettes Per Day: OCC CIGAR - ADVISED NPO; Do You Dip or Chew Tobacco: No; Hx Alcohol Use: Yes Alcohol type: beer Alcohol Intake Frequency Comment: 2-3 beers per week Hx Substance Use: No Preferred Language: Chinese Communication Ability: Effective Communication Ability Comment: 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 Visual Impairment: Limited Hearing Ability: Use of Hearing Aid Installment Loan Collector Required: No Beliefs That Will Affect Care: None marital status: Current Living Situation: Spouse current occupational status: retired Feels Safe at Home: Yes Dental Care, Regularly: Yes Physical Activity Frequency: Does not Exercise Assistive Devices: Glasses Physical Exam Constitutional: No acute distress, resting in bed Musculoskeletal: Left upper extremity: There is a fluctuant area overlying the volar aspect of the left fifth finger metacarpal phalangeal joint that extends to the distal palmar crease. Dupuytren's contractures present involving the small finger as well as some of the ring finger. Small finger contracture of about 60 degrees is present at the MCP joint. Sensation intact to light touch in the distributions of the superficial radial nerve/median nerve/ulnar nerve distributions. Palpable radial pulse. Positive tabletop test Results & Data Vital Signs (Past 12 Hours) Vital Signs Temp Pulse Pulse Resp BP BP Pulse Ox 11/29/23 19:37 36.8 C 58 L 18 154/70 H 98 11/29/23 18:20 59 L 17 153/82 H 96 11/29/23 14:14 36.5 C 73 16 134/83 96 O2 Del Method 11/29/23 19:37 Room Air 11/29/23 18:20 Room Air 11/29/23 14:14 Room Air
[2023-11-29] MEDS: LANTUS PER UNIT CHARGE SQ SCH (22:00)
[2023-11-30 06:09] LABS: Albumin Globulin Ratio 1.5 (0.9-2); Albumin Level 3.8 gm/dl (3.4-5.0); Basophils # (auto) 0.03 K/uL (0.00-0.20); Basophils % (auto) 0.3 %; Bilirubin,Total 0.6 mg/dl (0.2-1.0); Calcium 9.3 mg/dl (8.6-10.3); Creatinine Clr Calc Pharmacy 60.6 ml/min; Eosinophils % (auto) 5.7 %; Globulin 2.5 gm/dl (2.5-4.0); Hemoglobin 13.5 g/dl (14.0-18.0); Immature Granulocytes # (auto) 0.03 K/uL (0.01-0.20); Immature Granulocytes % (auto) 0.3 %; Lymphocytes # (auto) 1.58 K/uL (1.20-3.40); Magnesium 1.7 mg/dl (1.7-2.4); Mean Corpuscular Hemoglobin 27.8 pg (25.0-34.0); Mean Corpuscular Hgb Conc 33.8 g/dL (32.0-36.0); Mean Corpuscular Volume 82.3 fL (80.0-100.0); Mean Platelet Volume 10.3 fL (9.4-12.4); Neutrophils # (auto) 5.93 K/uL (1.40-6.50); Neutrophils % (auto) 67.7 %; Platelet Count 227 K/uL (130-400); Potassium 4.3 mmol/L (3.5-5.1); RDW Coefficient of Variation 13.7 % (11.5-14.5); RDW Standard Deviation 40.7 fL (36.4-46.3); Red Blood Count 4.86 M/uL (4.70-6.10); Total Protein 6.3 gm/dl (6.0-8.3); White Blood Count 8.77 K/ul (4.8-10.8)
[2023-11-30] MEDS: VANCOMYCIN HCL 750 MG in SODIUM CHLORIDE 0.9% 250 ML IV SCH (06:32)
[2023-11-30 07:27] LABS: Estimated Average Glucose 169 mg/dl; Hemoglobin A1C 7.5 % (4.5-5.6)
[2023-11-30] MEDS: PANTOprazole 40 MG TAB PO SCH (08:09)
[2023-11-30] MEDS: ASPIRIN 81 MG ECTAB PO SCH (08:09)
[2023-11-30] MEDS: LATANOPROST 0.005% OP SOLN 2.5 ML BTL OPB SCH (08:09)
[2023-11-30] MEDS: CLOPIDOGREL BISULFATE 75 MG TAB PO SCH (08:09)
[2023-11-30] MEDS: amLODIPine BESYLATE 5 MG TAB PO SCH (08:09)
[2023-11-30] MEDS: LISINOPRIL/HCTZ 20/12.5MG 1 TAB TAB PO SCH (08:09)
[2023-11-30] MEDS: SERTRALINE HCL 50 MG TABLET PO SCH (08:09)
[2023-11-30] MEDS: ATORVASTATIN 40 MG TAB PO SCH (08:09)
[2023-11-30] MEDS: SACCHAROMYCES BOULARDII 250 MG CAP PO SCH (08:09)
[2023-11-30] MEDS: cefTRIAXone SODIUM 2,000 MG/50 ML BAG IV SCH (08:10)
--- NOTE | 2023-11-30 08:44 | Pharmacy Report ---
Pharmacy PK ABX Note - Date of Service November 30, 2023 - Assessment and Plan Assessment 11/29: Day #2 vancomycin therapy. Random level obtained this AM after loading dose yesterday. Renal function ~ baseline. Cultures pending. 11/28: * 78 year old M receiving vancomycin/Unasyn for treatment of a finger infection. Pertinent microbiologic data includes: finger culture and blood cultures pending Plan Vancomycin * Current regimen: vancomycin 750mg IV q12h * Random level this AM (after single loading dose), 9.4mcg/mL (~11h level). Regimen predicted to achieve ssAUC 421mg/L.hr with a 62% efficacy probability. * Will optimize regimen to 1gm q12h- predicted to achieve ssAUC 548mg/L.hr. * Repeat level at steady state of new regimen if continued. Pharmacy will continue to follow and will adjust dose/frequency as necessary. Thank you. Pharmacy has transitioned to AUC monitoring for vancomycin. AUC/GUICHO is the preferred PK/PD target and is associated with decreased risk of nephrotoxicity compared to traditional trough targets.
--- NOTE | 2023-11-30 16:47 | Hospitalist Progress Note ---
Date of Service November 30, 2023 Assessment & Plan (1) Abscess of left hand: (2) Infection of left hand: (3) Contracture of joint of finger of left hand: (4) Diabetes type 2, controlled: (5) Hypertension: (6) Dyslipidemia: (7) Cerebrovascular disease: Plan This is a 78-year-old male who has a significant past medical history of T2DM, HTN, HLD, PFO, bilateral carotid stenosis status post left CEA in 2019, CVA with decreased vision in 2019, depression, anxiety, history of retinal detachment, mild cognitive impairment and mild aortic valve stenosis who presents to ED secondary to worsening infection of his left fifth digit. Infection of left fifth digit with abscess - status post I&D in ER- cultures pending. Blood cultures negative till date. Seen by orthopedics and did not recommend any further Interventions. Continue empiric antibiotics pending further culture results. Continue local wound care. Patient is afebrile , Hemodynamically stable and does not look sick or septic. T2DM- Last A1c in August was 7.6. Hold metformin and glipizide. continue L antus/Humalog And will adjust as indicated. HTN- Chronic, stable. Continue amlodipine, lisinopril and HCTZ History of CVA, Carotid artery stenosis status post left CEA in 2019- Continue ASA and Plavix Small PFO with intra-atrial shunt- Follows with cardiology DVT ppx: SCDS. Ambulating independently. Disposition: discharge home pending final culture results Time spent: approximately 35 minutes. Admission and Anticipated Discharge Date Admission Date: November 29, 2023 Subjective patient was seen and examined at bedside. he feels better after the incision and drainage. wound looks fine. No pus could be expressed at bedside. He has been ambulating independently. He is not happy to learn that he has to be here on IV antibiotics waiting for culture results. No fever, chills, chest pain or shortness of breath nausea or vomiting. Review of Systems Review of Systems: All systems reviewed & are unremarkable except as noted in Subjective Physical Exam Physical Exam: General: Lying comfortably in bed, not in distress, on room air HEENT: EOMI, DANIEL, MMM Chest: Clear breath sounds bilaterally, no wheezes or crackles CVS: Regular rate and rhythm, normal heart sounds, no murmur Abdomen: Soft, non tender, not distended, normal bowel sounds Neuro: Awake, alert, oriented, conversing well, non focal Extremities: No cyanosis, clubbing or edema Left hand I&D site clean, no pus could be expressed at bedside. Contracture of left fifth finger noted. Results & Data Results & Data Vital Signs (Past 12 Hours) Vital Signs Temp Pulse Pulse Resp BP Pulse Ox O2 Del Method 11/30/23 15:16 36.5 C 54 L 16 142/70 H 97 Room Air 11/30/23 11:49 36.4 C 56 L 18 137/76 98 Room Air 11/30/23 07:57 36.3 C L 62 19 132/82 96 Room Air Laboratory Results Short CBC 11/30/23 Range/Units 05:25 WBC 8.77 (4.8-10.8) K/ul Hgb 13.5 L (14.0-18.0) g/dl Hct 40.0 L (42.0-52.0) % Plt Count 227 (130-400) K/uL BMP 11/30/23 05:25 Sodium 136 Potassium 4.3 Chloride 106 Carbon Dioxide 26 BUN 19 Creatinine 1.12 Glucose 142 H Calcium 9.3 Liver Function 11/30/23 Range/Units 05:25 Total Bilirubin 0.6 (0.2-1.0) mg/dl AST 12 L (13-39) U/L ALT 13 (7-52) U/L Alkaline Phosphatase 74 (34-104) U/L Albumin 3.8 (3.4-5.0) gm/dl
[2023-11-30] MEDS: VANCOMYCIN HCL 1,000 MG in SODIUM CHLORIDE 0.9% 250 ML IV SCH (18:23)
--- OUTSIDE RECORDS SUMMARY | 2023-11-30 22:15 | External Medical Summary | Summary of Care ---
Author Name Unknown Organization [facility] Address [address] [facility] [place] [address] Phone [phone] Care Team Providers Care Data Entry Analyst Name Role Phone Sammi Prieto MD Primary Care Provide r Reason for Visit * Reason Comments Adult Annual Wellness Visit, Subsequent Visit Encounter Details Date Type Department Care Team (Late st Contact Info) Description 11/22/2023 9:00 AM EDT Nurse Only Ancillary [address] [place] [id number] Kayy Nurse [address] [place] [id number] Adult Annual Wellness Visit, Subsequent Visit Allergies No known active allergiesdocumented as of this encounter (statuses as of 11/22/2023) Medications Medication Sig Dispensed Refills Start Date End Date Status FREESTYLE LITE DEVIIndications:D M type 2, goal A1c below 7 test bloodsugars twice a day,fasting and two hours after a meal;Diagnosis 250.00 250 Device 3 09/07/2011 Active latanoprost (XALATAN) 0.005 % ophthalmic solution Instill 1 Drop into both eyes in the morning. Active Neuriva Oral Capsule Take by mouth daily. Active FreeStyle Lite Test In Vitro Strip (Glucose Blood) Test once a day DxE11.9 100 Strip 5 10/07/2021 Active Sildenafil Citrate 100 MG Oral TabletIndications :Erectile dysfunction, unspecified erectile dysfunction type Take 1 Tablet by mouth daily as needed for Erectile Dysfunction. 30 Tablet 2 08/21/2022 Active amLODIPine Besylate 10 MG Oral Tablet (Norvasc)Indicati ons:HTN, goal below 140/90 TAKE 1 TABLET BY MOUTH EVERY DAY 90 Tablet 3 03/18/2023 Active Aspirin Low Dose 81 MG Oral Tablet Delayed Release (aspirin enteric coated) TAKE 1 TABLET BY MOUTH EVERY DAY IN THE MORNING 90 Tablet 3 03/18/2023 Active Pantoprazole Sodium 40 MG Oral Tablet Delayed Release (Protonix)Indicat ions:Gastroesopha geal reflux disease TAKE 1 TAB BY MOUTH DAILY 30 MINUTES BEFORE THE FIRST MEAL OF THE DAY FOR HEARTBURN 90 Tablet 3 06/15/2023 Active Sertraline HCl 50 MG Oral Tablet (Zoloft)Indicatio ns:Anxiety TAKE 1 TABLET BY MOUTH EVERY DAY 90 Tablet 1 10/27/2023 Active Atorvastatin Calcium 40 MG Oral Tablet (Lipitor)Indicati ons:Dyslipidemia, goal LDL below 100 TAKE 1 TABLET BY MOUTH EVERY DAY 90 Tablet 1 10/27/2023 Active metFORMIN HCl ER 500 MG Oral Tablet Extended Release 24 Hour (Glucophage XR)Indications:Ty pe 2 diabetes mellitus with hemoglobin A1c goal of less than 7.0% (HCC) TAKE 2 TABLETS BY MOUTH EVERY MORNING 180 Tablet 1 11/10/2023 Active Clopidogrel Bisulfate 75 MG Oral Tablet (pLAVix)Indicatio ns:History of stroke TAKE 1 TABLET BY MOUTH EVERY DAY 90 Tablet 1 11/10/2023 Active glipiZIDE ER 10 MG Oral Tablet Extended Release 24 Hour (Glucotrol XL)Indications:Ty pe 2 diabetes mellitus with hemoglobin A1c goal of less than 7.0% (HCC) TAKE 1 TABLET BY MOUTH EVERY DAY 90 Tablet 1 11/10/2023 Active Lisinopril-hydroC HLOROthiazide 20-12.5 MG Oral Tablet TAKE 1 TABLET BY MOUTH EVERY DAY 90 Tablet 1 11/10/2023 Active polyethylene glycol 3350 (MIRALAX) 255 gram powderIndications :Constipation, slow transit Dissolve one heaping tablespoon in 8 ounces of water or juice - one dose per day 3 Bottle 1 09/18/2019 4 Discontinue d(Medicatio n List Clean Up) Fluticasone Propionate 50 MCG/ACT Nasal Suspension (Flonase)Indicati ons:Post-nasal drip ADMINISTER 1 SPRAY INTO EACH NOSTRIL IN THE MORNING AND 1 SPRAY IN THE EVENING FOR 5 DAYS 16 mL 1 08/27/2023 4 Discontinue d(Medicatio n List Clean Up) documented as of this encounter (statuses as of 11/22/2023) Active Problems Problem Noted Date Diagnosed Date Nonrheumatic aortic valve stenosis 04/28/2021 Interatrial septal aneurysm with PFO 10/21/2020 Chronic midline thoracic back pain 10/21/2020 Dupuytren's contracture of left hand 10/21/2020 Diabetic polyneuropathy 10/21/2020 Lightheaded 02/03/2020 Anxiety 12/04/2019 Current mild episode of brian r depressive disorder without prior episode 06/20/2019 Memory loss 06/20/2019 Visual field loss, post-stroke 03/19/2019 History of stroke 12/10/2018 Dysarthria, post-stroke 12/10/2018 Vitamin D insufficiency 09/24/2014 HTN, goal below 140/90 09/15/2014 Carotid artery stenosis 08/20/2014 Overview: left carotid disease Persistent insomnia 07/07/2014 Tear of posterior cruciate ligament of knee 12/31 Overview: Left knee Nocturnal leg cramps 01/22/2014 Constipation, slow transit 07/10/2013 Thoracic degenerative disc disease 07/10/2013 PVD (peripheral vascular disease) 06/20/2012 Spinal stenosis, lumbar kirti on, with neurogenic claudication 12/14/2011 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 Esophageal reflux 05/25/2009 Overweight 07/31/2008 Overview: Per Obesity Taxonomy Carpal tunnel syndrome documented as of this encounter (statuses as of 11/22/2023) Resolved Problems Problem Noted Date Diagnosed Date Resolved Date Morbid obesity due to excess calories 12/04/2019 10/21/2020 Sprain of posterior cruciate ligament of left knee 01/22/2014 01/22/2014 HTN, goal below 140/80 02/19/201209/15 Overview: Per HTN Protocol #27. HTN, goal below 130/80 06/23/200902/21 Mixed dyslipidemia 02/08/2009 9 Overview: Per Lipid Taxonomy. DM type 2, not at goal 11/06/200804/15 Overview: Modified per Diabetes protocol #14. DM type 2, not at goal 07/31/200809/04 HTN, goal to be determined 07/31/2008 1 07/25/2008 Overview: Modified per HTN protocol #16. Sebaceous cyst 11/18/2002 01/25/2011 documented as of this encounter (statuses as of 11/22/2023) Immunizations Name Administration Dates Next Due COVID-19 mRNA, LNP-s, No Pre serve, 2-Dose Series (Moderna) 09/10/2020,07/04/2020 H1N1 2009 Influenza, IM 06/23/2009 Pneumococcal Conjugate Vacc, 13 Valent (Prevnar) 03/12/2019 Pneumococcal Polysaccharide PPV23 (Pneumovax) 08/07/2008 Seasonal Influenza, Quadriva lent Hd (Fluzone Hd) 03/06/2023,05/10/2022,04/27/2021 Seasonal Influenza, Quadriva lent, No Preserve, IM 04/01/2020,04/29/2015 Seasonal Influenza, Split, I IV3, With Preserve, Inj 07/30/2014,06/20/2012,03/24/2011,04/06,05/16/2009,08/07/2008 Seasonal Influenza, Trivalen t, Adjuvanted, 65+ yrs 03/12/2019 Seasonal Influenza, Trivalen t, High Dose, No Preserve, IM 04/23/2018 TD - Tetanus/Diptheria (ADULT) 07/02/2004 TDAP (age 11 and older)(Adacel) 07/02/2004 Varicella Zoster Vaccine (Adult) 02/09/2016 Zoster Vaccine Recombinant (Shingrix) 10/14/2020 documented as of this encounter Social History Tobacco Use Types Packs/Day Years Used Date Smoking Tobacco: Former Cigars Smokeless Tobacco: Never Tobacco Cessation:Counseling Given: Not Answered Comments:One or 2 cigars a mth Alcohol Use Standard Drinks/Week Comments Yes 2 (1 standard drink = 0.6 oz pure alcohol) a beer or two every couple of weeks AUDIT-C Answer Date Recorded Frequency of Alcohol Consumption Not on file 12/10/2018 Average Number of Drinks Not on file 019 Frequency of Binge Drinking Weekly 11/30 PHQ-2 Answer Date Recorded PHQ-2 Score -1 03/21/2020 Hunger Vital Sign Answer Date Recorded Worried About Running Out of Food in the Last Ye ar Never true 02/03/2020 Ran Out of Food in the Last Year Never true 02/03/2020 Sex and Gender Information Value Date Recorded Sex Assigned at Male 06/11/2019 9:48 AM EST Gender Identity Male 06/11/2019 9:48 AM EST Sexual Orientation Straight 11/22/2023 9: 17 AM EDT Job Start Date Occupation Industry Not on file Not on file Not on file documented as of this encounter Last Filed Vital Signs Vital Sign Reading Time Taken Comments Blood Pressure 120/60 11/22/2023 9:11 AM EDT Pulse 88 11/22/2023 9:11 AM EDT Temperature - - Respiratory Rate - - Oxygen Saturation 93% 11/22/2023 9:11 AM EDT Inhaled Oxygen Concentration - - Weight 99.8 kg (220 lb) 11/22/2023 9:11 AM EDT Height 182.9 cm (6') 11/22/2023 9:11 AM EDT Body Mass Index 29.84 11/22/2023 9:11 AM EDT documented in this encounter Patient Instructions * Patient Instructions* Poly Mayo RN - 11/22/2023 9:08 AM EDT Patient Instructions - Fall Prevention (This education is for all patients over 65 regardless of symptoms) Remember to take your current medications as prescribed. In order to prevent falls, you are encouraged to: Exercise Utilize assistive/adaptive devices Avoid multifocal lenses when walking Avoid hazards in home Maintain a regular toileting schedule Any questions please contact our office. Preventing Falls in the Home (This education is for all patients over 65 regardless of symptoms) As you get older, falls are more likely. Thats because your reaction time slows. Your muscles and joints may also get stiffer, making them less flexible. Illness, medications, and vision changes can also affect your balance. A fall could leave you unable to live on your own. To make your home safer, follow these tips: Floors Put nonskid pads under area rugs Remove throw rugs Replace worn floor coverings Tack carpets firmly to each step on carpeted stairs. Put nonskid strips on the edges of uncarpeted stairs Keep floors and stairs free of clutter and cords Arrange furniture so there are clear pathways Clean up any spills right away Bathrooms Install grab bars in the tub or shower Apply nonskid strips or put a nonskid rubber mat in the tub or shower Sit on a bath chair to bathe Use bathmats with nonskid backing Lighting Keep a flashlight in each room Put a nightlight along the pathway between the bedroom and the bathroom [employer] Patient Education Copyright 2008 - 2010 [employer] except where otherwise noted Preventing Falls: Exercises to Improve Balance, Flexibility, Strength, and Staying Power (This education is for all patients over 65 regardless of symptoms) Certain types of exercises may help make you less likely to fall. Try the ones below. Or do other exercises that your healthcare provider suggests. Depending on your health, you may need to start slowly. Dont let that stop you. Even small amounts of exercise can help you. Be sure to talk to yourhealthcare provider before starting any exercise program. Improve Balance Many types of exercise can help improve balance. Nikolai chi and yoga are good examples. Heres another one to try. You can do it anytime and almost anywhere. Stand next to a counter or solid support. Push yourself up onto your tiptoes. Hold for 5 seconds. If you start to lose your balance, hold on to the counter. Rest and repeat 5 times. Work up to holding for 20 to 30 seconds, if you can. Increase Flexibility Being more flexible makes it easier for you to move around safely. Try exercises like the seated hamstring stretch. Sit in a chair and put one foot on a stool. Straighten your leg and reach with both hands down either side of your leg. Reach as far down your leg as you can. Hold for about 20 seconds. Go back to the starting position. Then repeat 5 times. Switch legs. Build Strength Resistance exercises help build strength. You can do them without equipment. Or you can use weights, elastic bands, or special machines. One such exercise is called the biceps curl. You can hold a 1 pound weight or even a can of soup. Do this exercise at least 3 times a week. Strive for everyday. Sit up straight in a chair. Keep your elbow close to your body and your wrist straight. Bend your arm, moving your hand up to your shoulder. Then slowly lower your arm. Repeat 5 times. Switch to the other arm. Build Your Staying Power Aerobic exercises make your heart and lungs stronger so you can keep moving longer. Walking and swimming are two of the best types of exercises you can do. Using a stationary bike is great, too. Find an aerobic exercise that you enjoy. Start slowly and build up. Even 5 minutes is helpful. Aimfor a goal of 30 minutes, at least 3 times a week. You dont have to do 30 minutes in one session. Break it up and walk a little throughout the day. More Helpful Tips Start easy. Slowly work up to doing more. Talk with your healthcare provider about the best exercises for you. Call senior centers or health clubs about exercise programs. If needed, have a family member watch you walk every so often to check your stability. Exercise with a friend. Choose an activity you both enjoy. Try exercises that you can do anytime, anywhere. Here are two examples. Have someone with you when you first try these: Practice walking by placing one foot right in front of the other. Stand up and sit down 10 times. Repeat this throughout the day. [employer] Patient Education Copyright 2009 - 2010 [employer] except where otherwise noted. Preventing Falls: Moving Safely Using a Cane or Walker (This education is for all patients over 65 regardless of symptoms) Keep the cane away from your feet so you dont trip. A walking aid, such as a cane or walker, can help you stay more independent and avoid falls. Remember to keep your walking aid within easy reach when youre in a chair or in bed. And learn how to use it safely so you dont injure yourself. Using a Cane If you have a stronger side, hold the cane on that side. Get your balance. Move the cane and your weaker leg forward. Support your weight on both the cane and your weaker side. Step with your stronger leg. Start again from step 1. If youre using a folding walker, be sure you know how to lock it open. Check that its locked open before each use. Using a Walker Roll the walker (or lift it, if youre using one without wheels) forward about 12 inches. Step forward with your weaker leg first. Use the walker to help keep your balance. Bring your other foot forward to the center of the walker. Start again from step 1. Helpful Tips Check with your healthcare provider about the right walking aid to use. Ask about a walker with a seat attached. Check the tips of your cane or walker to make sure they have nonskid covers. Move slowly from room to room. Dont kaminski. Sit down to get dressed. Use a deloris pack or backpack to keep your hands free. Get help for jobs that mean climbing, even on a stepstool. [employer] Patient Education Copyright 2008 - 2010 [employer] except where otherwise noted. Treating Urinary Incontinence in Men (This education is for all patients over 65 regardless of symptoms) You can't always control the release of urine. You may leak urine. Or you may not be able to hold your urine until you can get to a bathroom. This is called urinary incontinence. The problem can be managed. Talk to your doctor about your treatment options. Taking Medications Prescription medications may help you. They may: Help the sphincter to work better. (This is the muscle that closes to keep urine from leaking out of the bladder.) Help stop the bladder from aramis too often to push urine out. Help the bladder muscles contract with more force. Help relax the sphincter muscle and allow urine to flow more freely. Making Changes to Your Routine Certain changes in your daily routine may help. These include: Avoiding caffeine and alcohol. Using timed voiding. This is following a schedule for drinking fluids and urinating. Doing Kegel exercises daily. These exercises involve tightening the muscles in your sphincter and around your bladder to help strengthen them. Your doctor can explain how to do them. Using a Catheter A catheter is a narrow tube that is inserted through the urethra into the bladder. It drains urine.A condom catheter covers the penis. It channels urine into a collection bag. It is worn most of thetime. Intermittent catheterization means inserting a catheter to drain the bladder, then removing it. This is done on a regular schedule. Having Surgery If other options don't work, surgery may be recommended. If surgery is an option, your healthcare provider can discuss it with you and explain its risks and benefits. Healing After Prostate Surgery Surgery on the prostate gland can cause incontinence. Most often, the incontinence is only for a short time. It clears up when healing is complete. Very rarely, prostate surgery can result in permanent incontinence. Hi Mr. Kay, As your primary care physician, I know that regular visits with my patients who have several chronic conditions can go a long way in helping you stay healthy. Many times, the clinic team and I are in touch with you and/or other care team members between office visits to adjust medications, discuss any changes in your health, and review our care plan to make sure it is still meeting your needs. I am dedicated to helping you take a more active role in your overall care. It is important that there are resources available to you, so I created a personalized plan of care with a Health Calendar for you, which is included on the next page of this letter. Below is a list that summarizes your electronic health record: Health Maintenance Due: Health Maintenance Due Topic Date Due Hepatitis C Screening Never done Pneumococcal Vaccine: 65+ Years (3 of 3 - PPSV23 or PCV20) 03/12/2020 Zoster Vaccines (3 of 3) 12/09/2020 COVID-19 Vaccine (3 - 2022- season) 2023 Diabetic Foot Exam 05/18/2023 Albumin/Creatinine Ratio 01/24/2024 Current Medication List: (as of Visit date not found (in office), Visit date not found (telemedicine) ) Current Outpatient Medications Medication Sig Dispense Refill latanoprost (XALATAN) 0.005 % ophthalmic solution Instill 1 Drop into both eyes in the morning. Neuriva Oral Capsule Take by mouth daily. amLODIPine Besylate 10 MG Oral Tablet (Norvasc) TAKE 1 TABLET BY MOUTH EVERY DAY 90 Tablet 3 Aspirin Low Dose 81 MG Oral Tablet Delayed Release (aspirin enteric coated) TAKE 1 TABLET BY MOUTH EVERY DAY IN THE MORNING 90 Tablet 3 Pantoprazole Sodium 40 MG Oral Tablet Delayed Release (Protonix) TAKE 1 TAB BY MOUTH DAILY 30 MINUTES BEFORE THE FIRST MEAL OF THE DAY FOR HEARTBURN 90 Tablet 3 Sertraline HCl 50 MG Oral Tablet (Zoloft) TAKE 1 TABLET BY MOUTH EVERY DAY 90 Tablet 1 Atorvastatin Calcium 40 MG Oral Tablet (Lipitor) TAKE 1 TABLET BY MOUTH EVERY DAY 90 Tablet 1 metFORMIN HCl ER 500 MG Oral Tablet Extended Release 24 Hour (Glucophage XR) TAKE 2 TABLETS BY MOUTH EVERY MORNING 180 Tablet 1 Clopidogrel Bisulfate 75 MG Oral Tablet (pLAVix) TAKE 1 TABLET BY MOUTH EVERY DAY 90 Tablet 1 glipiZIDE ER 10 MG Oral Tablet Extended Release 24 Hour (Glucotrol XL) TAKE 1 TABLET BY MOUTH EVERY DAY 90 Tablet 1 Lisinopril-hydroCHLOROthiazide 20-12.5 MG Oral Tablet TAKE 1 TABLET BY MOUTH EVERY DAY 90 Tablet 1 FREESTYLE LITE HORACIO test bloodsugars twice a day,fasting and two hours after a meal;Diagnosis 250.00 250 Device 3 FreeStyle Lite Test In Vitro Strip (Glucose Blood) Test once a day DxE11.9 100 Strip 5 Sildenafil Citrate 100 MG Oral Tablet Take 1 Tablet by mouth daily as needed for Erectile Dysfunction. 30 Tablet 2 No current facility-administered medications for this visit. Facility-Administered Medications Ordered in Other Visits Medication Dose Route Frequency Provider Last Rate Last Admin ondansetron (ZOFRAN) inj Once PRN Leticia Lafleur CRNA 4 mg at 12/08/15 1109 Current List of Allergies: (as of Visit date not found (in office), Visit date not found (telemedicine) ) Review of patient's allergies indicates: No Known Allergies Most Recent Lab Results: Results for orders placed or performed in visit on 08/27/23 LIPID PANEL WITH DIRECT LDL IF TG IS HIGH Result Value Ref Range Triglycerides 120 <=174 mg/dL Cholesterol 110 <200 mg/dL HDL Cholesterol 37 (L) >39 mg/dL Non-HDL Cholesterol 73 <=159 mg/dL LDL Cholesterol 49 <=129 mg/dL MYCODE SST1 Result Value Ref Range MyCode Specimen Freezing of extracted DNA, whole blood and/or serum. MYCODE SST2 Result Value Ref Range MyCode Specimen Freezing of extracted DNA, whole blood and/or serum. Sincerely, Sammi Prieto MD 11/22/2023 [facility] Calendar (as of Visit date not found (in office), Visit date not found (telemedicine) ) Care needs Care needs Last completed Due next Hepatitis C screening --- Never done Pneumonia vaccine (3 of 3 - PPSV23 or PCV20) 03/12/2019 03/12/2020 Zoster (Shingles) Vaccine (3 of 3) 10/14/2020 12/09/2020 COVID-19 Vaccine (3 - season) 2020 03/02/2023 Diabetic Foot Exam 05/18/2022 05/18/2023 Urine albumin/creatinine test 01/23/2023 01/24/2024 A1C blood sugar test 08/27/2023 02/25/2024 Kidney Function Test 03/06/2023 03/06/2024 Diabetic Eye Exam 05/14/2023 05/14/2024 Colonoscopy 01/17/2023 01/17/2026 Diphtheria, tetanus & pertussis vaccines (4 - Td or Tdap) 10/21/2020 (NOT INDICATE) 10/21/2030 As you look over the recommended services, be sure to check with your insurance company to determine what's covered. [employer] is a great tool that helps you review your medical record online, including test results, doctor notes and your health summary. You can also schedule appointments with me and other members of your care team, request prescription refills and ask for advice related to your medical conditions at [email or web address]. Diabetes: Keeping Feet Healthy Inspect your feet every day for signs of a problem. Diabetes can damage nerves in your feet and cause neuropathy. This condition makes it hard for you to feel injuries or sore spots. Diabetes can also change blood flow, making it harder for small problems, like a blister, to heal properly. In fact, minor injuries can quickly become serious infections that send you to the hospital. Practice self-care to protect your feet and keep them healthy. Take Special Care Inspect your feet daily for problems such as redness, blisters, cracks, dry skin, or numbness. Use a mirror to see the bottoms of your feet. Or, ask for help. Manage your diabetes. Monitor and control your blood sugar. Take all your medications as prescribed. Avoid walking barefoot, even indoors. Wash your feet with warm water and mild soap. Dry well, especially between toes. Dont treat corns or calluses yourself. Talk to your doctor or tangled yarn spool straightener (a doctor who specializes in foot care) if you need assistance trimming your toenails. Use moisturizing cream or lotion if you have dry skin, but dont use it between toes. Dont use heating pads on your feet. If you have neuropathy, you could get a burn and not feel it. Stop smoking. Smoking restricts blood flow and can make it harder for wounds to heal. Have Regular Checkups Foot problems can develop quickly. So be sure to follow your healthcare teams schedule for regular checkups. During office visits, take off your shoes and socks as soon as you get in the exam room. Ask your healthcare provider to examine your feet for problems. This will make it easier to find and treat small skin irritations before they get worse. Regular checkups can also help keep track of the blood flow and feeling in your feet. If you have neuropathy, you may need to have checkups more often. Wear Proper Footwear Wearing proper footwear is very important. If areas of your feet have been damaged by too much pressure, your healthcare provider may recommend changing your footwear. In some cases, avoiding high heels or tight work boots may be all thats needed. Or, your healthcare provider may recommend special shoes or custom inserts. These help protect your feet and keep existing irritations from getting worse. If you need special footwear, ask your healthcare provider if you qualify for [facility] diabetic shoe program. Make Sure Shoes and Socks Fit Any pair of shoes--new or old--should feel comfortable as soon as you put them on. There shouldnt be any rubbing when you walk. Wear the right shoe for any activity. For instance, a running shoe is designed to keep your feet injury-free while jogging. Buy shoes at the end of the day, when your feet are larger. Make sure they provide support without feeling too loose. Make sure your socks fit, t oo. Wear soft, seamless, well-padded socks for activity. Cotton or microfiber socks are best to help to absorb sweat. To protect your feet, avoid shoes that are open-toed or open-heeled. If you have questions about what kinds of shoes and socks are best, talk to your healthcare team. Get Regular Exercise Regular exercise improves blood flow in your feet. It also increases foot strength and flexibility.Gentle exercises, like walking or riding a stationary bicycle, are best. You can also do special foot exercises. Just be sure to talk with your healthcare provider before starting any exercise program. Also mention if any exercise causes pain, redness, or other signs of foot problems. Note: If you have any kind of break in the skin of your foot or ankle, keep the area clean. Then call your doctor--especially if the area doesnt appear to be healing. [id number] [employer], [address] [place] [address], [place] [address]. All rights reserved. This information is not intended as a substitute for professional medical care. Always follow your healthcare professional's instructions. documented in this encounter Progress Notes * Poly Mayo RN - 11/22/2023 9:08 AM EDT Fall Risk Plan of Care Documentation: - Current medications reconciled Patient encouraged to: - Exercise - Provide education materials for Core strengthening - Utilize assistive/adaptive devices - Provide education materials - Avoid multifocal lenses when walking - Avoid hazards in home - Provide education materials - Maintain a regular toileting schedule Poly Mayo RN 11/22/2023 AD8 Dementia Screening Interview Person answering questions: patient Remember, "Yes, a change" indicates that there has been a change in the last several years caused by cognitive (thinking and memory) problems 1. Problems with judgement (eg: problems making decisions, bad financial decisions, problems with thinking). No (0) 2. Less interest in hobbies/activities. No (0) 3. Repeats the same things over and over (questions, stories, or statements). No (0) 4. Trouble learning how to use a tool, appliance, or gadget (eg: VCR, computer, microwave, remote control). No (0) 5. Forgets correct month or year. No (0) 6. Trouble handling complicated financial affairs (eg: balancing checkbook, income taxes, paying bills). No (0) 7. Trouble remembering appointments. No (0) 8. Daily problems with thinking and/or memory. No (0) TOTAL AD8: 1 - AD8 Dementia Screening Score The final score is a sum of the number items marked "Yes, A Change". 0 - 1: Normal cognition; 2 or greater: Cognitive impairments is likely to be present - further testing required Adult Annual Wellness Visit: Nav Kay is a 78 year old male who presents for an Adult Annual Wellness Visit. Depression Screening: Did the patient complete the screening questionnaire for Depression? Yes Is the patient's total score for Depression 15 or greater? No, no further intervention needed, unless requested by patient. Did the patient answer positively to the suicide question? No, no further intervention needed, unless requested by patient. In general, compared to other people your age, what would you say that your health is? Fair Ht Readings from Last 1 Encounters: 11/22/23 1.829 m (6') Wt Readings from Last 1 Encounters: 11/22/23 99.8 kg (220 lb) Body Mass Index: BMI Less than 30 Body mass index is 29.84 kg/m. BP Readings from Last 1 Encounters: 11/22/23 120/60 Medical/Surgical/Family History Reviewed: Yes Past Medical History: Diagnosis Date Benign neoplasm of colon 01/07/10 six 2-3mm polyps adenomatous tissue repeat in 3 years Carotid artery stenosis 08/20/14 left carotid disease Carpal tunnel syndrome Constipation, slow transit 07/10/2013 Contracture of joint of hand 10/12/2010 Degeneration of lumbosacral intervertebral disc 10/12/2010 Diabetic sensorimotor neuropathy (HCC) 09/07/2011 DM type 2 causing neurological disease (HCC) 09/07/2011 DM type 2, goal A1c below 7 Dyslipidemia, goal LDL below 100 Esophageal reflux 05/25/2009 Glaucoma HTN, goal below 130/80 06/23/2009 HTN, goal below 140/90 09/15/2014 HTN, goal to be determined Impotence of organic origin 08/25/2009 Nocturnal leg cramps 01/22/2014 Obesity, Class I, BMI 30.0-34.9 (see actual BMI) 09/23/2009 Palpitations Persistent insomnia 07/07/2014 PVD (peripheral vascular disease) ([facility]) 06/20/2012 Retinal detachment 1996 Rt side s/p surgery Retinal detachment with retinal defect Sebaceous cyst 11/18/2002 Spinal stenosis, lumbar region, with neurogenic claudication 12/14/2011 Tear of posterior cruciate ligament of knee 01/22/2014 Left knee Thoracic degenerative disc disease 07/10/2013 Vitamin D insufficiency 09/24/2014 Past Surgical History: Procedure Laterality Date COLONOSCOPY W/ LESION REMOVAL, SNARE 01/07/2010 done six 2-3mm polyps adenomatous tissue repeat in 3 years COLONOSCOPY, DIAGNOSTIC (RECTUM) 01/28/2013 normal COLONOSCOPY, DIAGNOSTIC (RECTUM) 01/28/2013 COLONOSCOPY FLEXIBLE PROXIMAL DIAGNOSTIC performed by Shmuel Levine MD at [facility]COPY [facility] COLONOSCOPY, DIAGNOSTIC (RECTUM) 12/08/2015 diverticulosis, repeat 5 yrs/COLONOSCOPY FLEXIBLE PROXIMAL DIAGNOSTIC performed by Shmuel Levine MD at ENDOSCOPY [facility] COLONOSCOPY, DIAGNOSTIC (RECTUM) 03/10/2021 Diverticulosis in sigmoid and descending, 9-2 to 7 mm in descending, transverse, ascending & cecum / biopsies benign adenomatous polyps / 1 year follow up / COLONOSCOPY FLEXIBLE PROXIMAL DIAGNOSTIC performed by Shmuel Levine MD at ENDOSCOPY [facility] COLONOSCOPY, DIAGNOSTIC (RECTUM) 01/17/2023 diverticulosis/hemorrhoids/biopsies show adenomatous polyps/recall 3 years/COLONOSCOPY FLEXIBLE PROXIMAL DIAGNOSTIC performed by Shmuel Levine MD at ENDOSCOPY [facility] EGD, FLEXIBLE, DIAGNOSTIC 02/08/2014 EGD, FLEXIBLE, DIAGNOSTIC 02/06/2014 mild gastritis/ESOPHAGOGASTRODUODENOSCOPY (EGD), FLEXIBLE, TRANSORAL, DIAGNOSTIC performed by Ramez Palomino DO at ENDOSCOPY [facility] HEMORRHOIDECTOMY,EXTERNAL, 2 + COLUMNS Hemorrhoidectomy,External LASER TRABECULOPLASTY 12/07/2011 right eye - high pressures- Dr Luna REMOVAL OF TONSILS, UNDER AGE 12 REMOVE CATARACT, INSERT LENS PROSTH Cataract Removal w/ IOL - x 2 Family History Problem Relation Name Age of Onset Other (Other) Mother Alzhemers Hypertension Father Has patient ever had cancer? No Social History Tobacco Use Smoking status: Former Types: Cigars Smokeless tobacco: Never Tobacco comments: One or 2 cigars a mth Substance Use Topics Alcohol use: Yes Alcohol/week: 2.0 standard drinks of alcohol Types: 2 12 oz of beer per week Comment: a beer or two every couple of weeks Vaping/E-Cigarette Use Vaping/E-Cigarette Use Never User Vaping/E-Cigarette Substances Vaping/E-Cigarette Devices Tobacco/Alcohol screening completed today? Yes Hospital Care: Admissions (within the last year): Not Applicable ER within 30 days: No Does the patient have an Advance Directives/Living Will? Yes Last Physical Exam: Last physical exam: 11.21.23 Does patient see primary provider regularly? Yes Does patient see other providers? Yes, Specialist Patient Care Team updated? Yes Review of patient's allergies indicates: No Known Allergies Immunization History Administered Date(s) Administered COVID-19 mRNA, LNP-s, No Preserve, 2-Dose Series (Moderna) 07/04/2020, 09/10/2020 H1N1 2009 Influenza, IM 06/23/2009 Pneumococcal Conjugate Vacc, 13 Valent (Prevnar) 03/12/2019 Pneumococcal Polysaccharide PPV23 (Pneumovax) 08/07/2008 Seasonal Influenza, Quadrivalent Hd (Fluzone Hd) 04/27/2021, 05/10/2022, 03/06/2023 Seasonal Influenza, Quadrivalent, No Preserve, IM 04/29/2015, 04/01/2020 Seasonal Influenza, Split, IIV3, With Preserve, Inj 08/07/2008, 05/16/2009, 04/06/2010, 03/24/2011,06/20/2012, 07/30/2014 Seasonal Influenza, Trivalent, Adjuvanted, 65+ yrs 03/12/2019 Seasonal Influenza, Trivalent, High Dose, No Preserve, IM 04/23/2018 TD - Tetanus/Diptheria (ADULT) 07/02/2004 TDAP (age 11 and older)(Adacel) 07/02/2004 Varicella Zoster Vaccine (Adult) 02/09/2016 Zoster Vaccine Recombinant (Shingrix) 10/14/2020 Current Outpatient Medications Medication Sig Dispense Refill latanoprost (XALATAN) 0.005 % ophthalmic solution Instill 1 Drop into both eyes in the morning. Neuriva Oral Capsule Take by mouth daily. amLODIPine Besylate 10 MG Oral Tablet (Norvasc) TAKE 1 TABLET BY MOUTH EVERY DAY 90 Tablet 3 Aspirin Low Dose 81 MG Oral Tablet Delayed Release (aspirin enteric coated) TAKE 1 TABLET BY MOUTH EVERY DAY IN THE MORNING 90 Tablet 3 Pantoprazole Sodium 40 MG Oral Tablet Delayed Release (Protonix) TAKE 1 TAB BY MOUTH DAILY 30 MINUTES BEFORE THE FIRST MEAL OF THE DAY FOR HEARTBURN 90 Tablet 3 Sertraline HCl 50 MG Oral Tablet (Zoloft) TAKE 1 TABLET BY MOUTH EVERY DAY 90 Tablet 1 Atorvastatin Calcium 40 MG Oral Tablet (Lipitor) TAKE 1 TABLET BY MOUTH EVERY DAY 90 Tablet 1 metFORMIN HCl ER 500 MG Oral Tablet Extended Release 24 Hour (Glucophage XR) TAKE 2 TABLETS BY MOUTH EVERY MORNING 180 Tablet 1 Clopidogrel Bisulfate 75 MG Oral Tablet (pLAVix) TAKE 1 TABLET BY MOUTH EVERY DAY 90 Tablet 1 glipiZIDE ER 10 MG Oral Tablet Extended Release 24 Hour (Glucotrol XL) TAKE 1 TABLET BY MOUTH EVERYDAY 90 Tablet 1 Lisinopril-hydroCHLOROthiazide 20-12.5 MG Oral Tablet TAKE 1 TABLET BY MOUTH EVERY DAY 90 Tablet 1 FREESTYLE LITE HORACIO test bloodsugars twice a day,fasting and two hours after a meal;Diagnosis 250.00 250 Device 3 FreeStyle Lite Test In Vitro Strip (Glucose Blood) Test once a day DxE11.9 100 Strip 5 Sildenafil Citrate 100 MG Oral Tablet Take 1 Tablet by mouth daily as needed for Erectile Dysfunction. 30 Tablet 2 No current facility-administered medications for this visit. Facility-Administered Medications Ordered in Other Visits Medication Dose Route Frequency Provider Last Rate Last Admin ondansetron (ZOFRAN) inj Once PRN Leticia Lafleur CRNA 4 mg at 12/08/15 1109 Patient Active Problem List Diagnosis Overweight Esophageal reflux Dyslipidemia, goal LDL below 70 Impotence of organic origin OBESITY, BMI 30-34 (SEE ACTUAL BMI) Type 2 diabetes mellitus with hemoglobin A1c goal of less than 7.0% (HCC) Carpal tunnel syndrome Contracture of joint of hand Degeneration of lumbosacral intervertebral disc Type II diabetes mellitus with neurological manifestations (HCC) Diabetic sensorimotor neuropathy (HCC) Spinal stenosis, lumbar region, with neurogenic claudication PVD (peripheral vascular disease) (HCC) Constipation, slow transit Thoracic degenerative disc disease Tear of posterior cruciate ligament of knee Nocturnal leg cramps Persistent insomnia Carotid artery stenosis HTN, goal below 140/90 Vitamin D insufficiency History of stroke Dysarthria, post-stroke Visual field loss, post-stroke Current mild episode of major depressive disorder without prior episode (HCC) Memory loss Anxiety Lightheaded Interatrial septal aneurysm with PFO Chronic midline thoracic back pain Dupuytren's contracture of left hand Diabetic polyneuropathy (HCC) Nonrheumatic aortic valve stenosis Medication Compliance: Patient is able to obtain all of his medications? Yes Patient takes medications as prescribed? Yes Patient manages own medications: Yes Patient uses a pill box? No Dental Exam: Yes: Every 6 Months Eye Screening: Yes: Every years Are you having trouble with hearing? Yes Do you use an assistive device to help your hearing? Yes, patient lost Exercise Screening: does not exercise regularly Nutrition Assessment: Eats three meals a day Pain Screening: Are you having any pain? Yes. Pain Scale: 0 = none, with more activity back hurts. Sleep Screening Tool 'STOP': Do you snore? Yes Do you feel fatigued during the day? Yes Do you wake up feeling like you haven't slept? No Have you been told you stop breathing at night? Yes Do you gasp for air or choke while sleeping? No Have you been told you have Sleep Apnea? Yes Do you have high blood pressure or are on medication(s) to control high blood pressure? No SCORE: If you check YES to two or more questions, make a referral for Obstructive Sleep Apnea Patient declines sarah referral, patient thinks they did recommend but patient did not want mask Patient and Caregiver Support System: Patient lives alone Means of Transportation: Drives. Concerns identified are: night Patient lives in Two Story - How many stairs: 15up and 11down railings chair lift Community Resources: Not Applicable Functional Status and ADL Skills: Has patient ever had an amputation? No Functional Assessment: 100- Normal, no complaints, no evidence of disease Ambulation: Patient ambulates with assistive device. Cane only if necessary Dressing: Gets clothes and dresses without any assistance: Independent Able to move freely in chair or bed including turning over: Independent Repositioning (bed or chair): Not applicable Transfers: Independent Toileting: Goes to bathroom, uses toilet, arranges clothes and returns without any assistance: Independent Toileting: continent of bladder and continent of bowel Feeding: Self Bathing: Self; tub and shower grab bars Requires none assistance with ADLs. Instrumental ADL's: Shopping: Independent Housekeeping: Independent Handling Finances: Independent DME Vendor Name: Not Applicable Fall Risk Assessment: Can the patient demonstrate that he can stand from a sitting position? Yes Has the patient had a fall within the last 6 months? Yes Does the patient have a problem with his gait or balance? Yes Does the patient take 4 or more prescription medicines? Yes Does the patient use sedatives or narcotics? No Fall Risk Factors Present: Uses more than 4 medications Uses assistive devices Balance or gait disturbances Lower extremity weakness Visually impaired Older than age 70 Fgf-Yi-gkh-Go Test: Time began at 900. Patient stood from sitting position and walked approximately 10 feet, returned and sat down. Total time for qsf-hn-mik-go test was 10 seconds. Wbl-Ko-erx-Go Test completed? Yes Gender Specific Preventative Plan: Health Maintenance Topic Date Due Hepatitis C Screening Never done Pneumococcal Vaccine: 65+ Years (3 of 3 - PPSV23 or PCV20) 03/12/2020 Zoster Vaccines (3 of 3) 12/09/2020 COVID-19 Vaccine (3 - 2022- season) 2023 Albumin/Creatinine Ratio 01/24/2024 HbA1c 02/25/2024 GFR 03/06/2024 Diabetic Eye Exam 05/14/2024 Diabetic Foot Exam 11/21/2024 Colonoscopy 01/17/2026 DTaP,Tdap,and Td Vaccines (4 - Td or Tdap) 10/21/2030 Influenza Vaccine (FLU shot) Completed Hepatitis B Aged Out MENINGOCOCCAL (MENACTRA/MENVEO) Aged Out GARDASIL-HPV IMMUNIZATION SERIES Aged Out RETIRED - COLONOSCOPY-EVERY 5 YRS AGES 18-100 Discontinued RETIRED - COLONOSCOPY-ANNUAL AGES 18-100 Discontinued Follow Up/ Referrals/Handouts: Depression screening - completed Functional assessment - doing well, passed in Falls Risk screening - discussed recent falls Exercise screening - encouraged to stay active Nutrition assessment -. Education Provided and Handouts Provided Pain screening - chronic back pain Incontinence screening - no complaints today Risk and functional assessment (Primary) Routine general medical examination at a health care facility Type 2 diabetes mellitus with hemoglobin A1c goal of less than 7.0% ([facility]) - DIABETES FOOT EXAM Advanced care planning/counseling discussion Follow Up: Return in 1 year (on 11/21/2024) for 12 month Subsequent Adult Wellness Visit. | For: 12 month Subsequent Adult Wellness Visit | Check-out note: 12 month Subsequent Adult Wellness Visit Would patient like to schedule next AWV visit? Yes Poly Mayo RN Socks and Shoes Removed for Annual Diabetic Foot Screening RIGHT FOOT: No Reddened, Cracking, Or Open Areas Noted. RIGHT Dorsalis Pedis Pulse: Palpable RIGHT Posterior Tibial Pulse: Palpable RIGHT Monofilament:Patient reports difficulty feeling monofilament at Third toe- plantar surface, Ball of Foot-base of great toe, Ball of Foot-base of 3rd toe, and Ball of Foot-base of little toe LEFT FOOT: No Reddened, Cracking or Open Areas Noted. LEFT Dorsalis Pedis Pulse: Palpable LEFT Posterior Tibial Pulse: Palpable LEFT Monofilament:Patient reports difficulty feeling monofilament at Great toe- plantar surface, Ball of Foot-base of great toe, and Ball of Foot-base of little toe Do you need diabetic shoes: No Patient has been verbally educated on the need or importance of Cholesterol, Diabetic Eye Exam, Diabetic Foot Exam, GFR, Glucose, Hemoglobin A1c, and Immunizations: covid,flu,shingrix Pt has completed the covid vaccines: No documented in this encounter Miscellaneous Notes * ACP (Advance Care Planning) - Poly Mayo RN - 11/22/2023 9:58 AM EDT Patient-centered Communication 11/22/2023 The patient/surrogate voluntarily agreed to participate in advance care planning discussion. They were advised that this is a separate service which may incur out of pocket cost in the form of copayment and/or deductibles. Location: Clinic Individual(s) present for conversation: Patient Decisions Additional Comments Synopsis SmartLink Most Recent Value Past ~10 years 11/22/2023 09:58 Additional Comments Additional Comments: pt does have ACP will get a copy to us for his chart. 11/22/2023 pt does have ACP will get a copy to us for his chart. Discerning What Matters Most to the Patient: Synopsis Smart[employer] Most Recent Value Past ~10 years 11/22/2023 09:58 Discerning What Matters Most to the Patient In their own words, patient's UNDERSTANDING of their illness is: compared to others my age, my health is fair, my vision is what bothers me most 11/22/2023 compared to others my age, my health is fair, my vision is what bothers me most The patient's HOPES are: Maintain current functional abilities 11/22/2023 Maintain current functional abilities Source: Content from [employer] Aligning Care With What Matters Most: Synopsis SmartLink Most Recent Value Past ~10 years 11/22/2023 09:58 Aligning Care With What Matters Most In their own words, the patient's understanding of their prognosis: compared to others my age, my health is fair 11/22/2023 compared to others my age, my health is fair Rationale for Decisions Source: Content from [employer] [facility] 5 minutes spent in direct jgnx-ey-aivi discussion today, Poly Mayo RN * Pt Handout (on AVS) - Poly Mayo RN - 11/22/2023 9:44 AM EDT Images from the original note were not included. [id number] Diabetes: Learning About Serving and Portion Sizes Servings and portions. What?s the difference? These terms can be very confusing. But learning to measure serving sizes can help you figure out how many carbohydrates (carbs) and other foods you eat each day. They're also powerful tools for managing your weight. A good rule of thumb: Devote half your plate to vegetables and green salad. Split the other half between protein and starchy carbohydrates. Fruit makes a good dessert. Servings and portions Many different words are used to describe amounts of food. If your healthcare provider uses a term you?re not sure of, don?t be afraid to ask. It helps to know the difference between servings and portions: A serving size. This is a fixed size. Food producers use this term to describe their products. For instance, the label on a cereal box could say that 1 cup of dry cereal = 1 serving. A portion (also called a helping). This is how much you eat or how much you put on your plate shelly meal. For instance, you might eat 2 cups of cereal at breakfast. Watching serving sizes The portion you choose to eat (such as 2 cups of cereal) may be more than 1 serving as listed on the food label (such as 1 cup of cereal). That?s why it helps to measure or weigh the food you eat. Because the food label values are based on servings, you?ll need to know how many servings you eat at 1 sitting. When you?re planning for a snack or a meal, keep servings in mind. It's OK if you don?t have measuring cups or a scale handy. There are other ways to figure out serving sizes. For instance, you can compare the food to the size of your hand (see pictures below). Here are some general tips: About 3 ounces of meat fits in the palm of your hand 1 cup of food is about the size of your fist An open hand holds about 1 to 2 ounces of nuts Ounces: 2 to 3 ounces is about the size of your palm. 1 cup: 1 cup (or a medium-sized piece) is about the size of your fist. 1/2 cup: 1/2 cup is about the size of your cupped hand. Managing portion sizes If your weight is a concern, reducing your portions can help. A portion is the amount of each type of food on your plate. You can eat more than 1 serving of a food at once. But to keep from eating too much at 1 meal, learn how to manage your portions. Portion control will also help with blood sugarmanagement. Last Reviewed Date: 10/01/202319995176-2966 The [employer]. All rights reserved. This information is not intended as a substitute for professional medical care. Always follow your healthcare professional's instructions. * Pt Handout (on AVS) - Poly Mayo RN - 11/22/2023 9:43 AM EDT Images from the original note were not included. [id number] Understanding Carbohydrates Just like a car needs the right type of fuel to run, you need the right kind of food to function. To keep your energy level up, your body needs food that has carbohydrates (carbs). But carbs raise blood sugar levels higher and faster than other kinds of food. Your dietitian will work with you to figure out the amount of carbs you need. Carbs come in 3 types: starches, sugars, and fiber. Starches Starches are found in grains, some vegetables, and beans. Grain products include bread, pasta, cereal, and tortillas. Starchy vegetables include potatoes, peas, corn, enrique beans, yams, and squash. Kidney beans, lopez beans, black beans, garbanzo beans, and lentils also have starches. Sugars Sugars are found naturally in many foods. Or they can be added. Foods that contain natural sugar include fruits and fruit juices, dairy products, honey, and molasses. Added sugars are found in most desserts, processed foods, candy, regular soda, and fruit drinks. These are very helpful to treat lowblood sugar (hypoglycemia). They give you sugar quickly. Try to keep at least 15 to 20 grams of these simple sugars with you at all times. Eat or drink these if you start to have symptoms of low blood sugar. Fiber Fiber comes from plant foods. Your body can't digest most fiber. Instead of raising blood sugar levels like other carbs, fiber stops blood sugar from rising too quickly. Fiber is found in fruits, vegetables, whole grains, beans, peas, and many nuts. Understanding how to count your carbs Keep track of the amount of carbs you eat. This can help you keep the right balance of carbs, physical activity, and medicine. The amount of carbs you need will be different from what other people need. How much you need depends on many things. These include your health, the medicines you take, andhow active you are. Your healthcare team will help you figure out the right amount of carbs for you. You may start with 45 to 60 grams of carbs per meal, depending on your case. Carb counting is a system that helps you keep track of the carbohydrates you eat at each meal. Carbs come from many foods. These include grains, starchy vegetables, fruit, milk, beans, and snackfoods. You can either count carbohydrate grams or carbohydrate servings. When you count carbohydrate servings, 1 carbohydrate serving = 15 grams of carbohydrates. Here are some examples of foods that have about 15 grams of carbs (1 serving of carbohydrates): 1/2 cup of canned or frozen fruit A small piece of fresh fruit (4 ounces) 1 slice of bread 1/2 cup of oatmeal 1/3 cup of rice 4 to 6 crackers 1/2 Samoan muffin 1/2 cup of black beans 1/4 of a large baked potato (3 ounces) 2/3 cup of plain fat-free yogurt 1 cup of soup 1/2 cup of casserole 6 chicken nuggets [id number] brownie or cake without frosting 2 small cookies 1/2 cup of ice cream or sherbet Carb counting is easier when food labels are available. Look at the label to see how many grams of total carbs per serving the food contains. Then you can figure out how much you should eat. If your food doesn't have a nutrition label, you should be able to get an idea of how many carbs there are per serving by using a book or website. Two very important lines to look at on the label are the serving size and the total carbohydrate amount per serving. Here are some tips for using food labels to count your carbs: Check the serving size. The information on the label is based on that serving size. If you eat more than the listed serving size, you may have to double or triple the other information on the label. Check the total grams of carbs. Total carbohydrate from the label includes sugar, starch, and fiber. Be sure to use the total carbohydrate number (minus the fiber) and not sugar alone. Know how many grams of carbs you can have. Be familiar with the matching portion sizes. Compare labels. Compare the labels of different products. Look at serving sizes and total carbs to find the products that work best for you. Don't forget protein and fat. With the focus on carb counting, it might be easy to forget protein and fat in your meals. Don't forget to include sources of protein and healthy fat to balance your meals. Also watch how much salt (sodium) you eat. This is especially true if you have high blood pressure. If you have diabetes, limit the amount of sodium to less than 2,300 mg a day. It?s also important to be consistent with the amount of carbs and time you eat when taking a fixed dose of diabetes medicine. Work with your healthcare provider or dietitian if you need more help. They can help you keep track of your carbs. They can also help you figure out how many grams of carbs you should have. Last Reviewed Date: 08/31/202319993631-4011 [employer]. All rights reserved. This information is not intended as a substitute for professional medical care. Always follow your healthcare professional's instructions. * Pt Handout (on AVS) - Poly Mayo RN - 11/22/2023 9:43 AM EDT Images from the original note were not included. 76331 Progressive Relaxation Your body needs relaxation to reduce stress and calm the [id number] response. It helps to planfor about 20 minutes of relaxation every day when you can take time for yourself. Sit or lie comfortably, limiting distractions like phones. Put on some soft music or simply sit in silence. Then incorporate the progressive relaxation technique below. How to do progressive relaxation Progressive relaxation helps your whole body relax. To try this technique, follow these steps: 1. Find a quiet room. Sit in a comfortable chair or lie on your back. 2. Breathe in deeply to a slow count of 5. Feel your belly, chest, and back expand. Breathe out slowly to a count of 5. Do this for several minutes. 3. After a few minutes, breathe in deeply again, but this time tighten the muscles in your feet. Notice how it feels. Hold the tension for 3 seconds. 4. Breathe out while relaxing the tightened muscles. Notice how relaxed you feel. 5. Repeat steps 3 and 4 with another muscle group. You can move from your feet, calves, and thighs to your stomach, arms, and hands. Remember the 4 A?s Avoid a stressor. For example, if someone is smoking when you?re trying to quit, leave the room. Alter how you deal with a stressor. For example, let the answering machine moss picker if a constantly ringing phone is a stressor. Accept a stressor you can?t change, like a job loss, by knowing that your feelings are normal. Adapt to some stressors. For example, when starting a new exercise program, instead of focusing on how hard it will be, think how good you will feel. Last Reviewed Date: 09/30/202119996077-8275 [employer]. All rights reserved. This information is not intended as a substitute for professional medical care. Always follow your healthcare professional's instructions. * Pt Handout (on AVS) - Poly Mayo RN - 11/22/2023 9:43 AM EDT A1C A1C Does this test have other names? Hemoglobin A1c; HbA1c; glycosylated hemoglobin; glycohemoglobin; Glycated hemoglobin What is this test? A1C is a blood test that shows average blood sugar (glucose) levels over the last 3 months. The test is done to find out if a person has diabetes or prediabetes. It's also used to see how well a person with diabetes controls their blood sugar. The test can help guide diabetes treatment over time. Why do I need this test? You may need this test to check for prediabetes or diabetes. If you have diabetes or prediabetes, you may need this test to see how well you control your blood sugar. People with diabetes need to track their blood sugar (glucose) levels every day to make sure they aren?t too high or too low. The A1C test gives results for a longer period of time. It shows ifyour blood sugar has been too high on average over the last 3 months. Glucose sticks to hemoglobin in the blood. Hemoglobin is a protein in red blood cells that carries oxygen. When blood sugar is high, more glucose builds up and sticks to the hemoglobin. The A1C test measures how much of the hemoglobin is coated with sugar. You may have the test when a healthcare provider first works with you to treat your diabetes. You may then need to have the A1C test 2 or more times a year. This depends on the type of diabetes you have and how well it?s controlled. The [place] [employer] Association (ADA) advises an A1C test at least 2 times a year if you are meeting your blood sugar goals. If you aren?t meeting your goals or your medicine has changed, you should have the A1C test more often. What other tests might I have along with this test? If your healthcare provider tests you for diabetes, you may also have any of these tests: Fasting plasma glucose blood test (FPG) Oral glucose tolerance test (OGTT) Urine test to check for sugar, ketones, or protein What do my test results mean? Test results may vary depending on your age, gender, health history, the method used for the test, and other things. Your test results may not mean you have a problem. Ask your healthcare provider what your test results mean for you. A1C results are reported as a percentage. Here are what the results mean: A1C below 5.7%. This is normal. A1C from 5.7% to 6.4%. You may have prediabetes. This means you have a higher risk for diabetes in the future. A1C of 6.5% or above on 2 separate tests. You may have diabetes. The ADA says that people with diabetes should keep an A1C below 7%. The [place] [employer] Endocrinologists advises an A1C of 6.5% or less. Your healthcare provider may give you other advice. This is based on your age, health conditions, and other things. How is this test done? The test is done with a blood sample. A needle is used to draw blood from a vein in your arm or hand. Does this test pose any risks? Having a blood test with a needle carries some risks. These include bleeding, infection, bruising, and feeling lightheaded. When the needle pricks your arm or hand, you may feel a slight sting or pain. Afterward, the site may be sore. What might affect my test results? Your blood sugar levels change throughout the day. This won't affect the A1C test result. If you have sickle cell anemia or other blood disorders, an A1C test may be less useful for diagnosing or watching diabetes. Your healthcare provider may tell you to use a different test that will work better for you. The test results may be less accurate if you have any of the below: Anemia Heavy bleeding Iron deficiency Kidney failure Liver disease How do I get ready for this test? You don't need to get ready for the test. Last Reviewed Date: 08/30/202119999230-9277 [employer]. All rights reserved. This information is not intended as a substitute for professional medical care. Always follow your healthcare professional's instructions. documented in this encounter Plan of Treatment Upcoming Encounters Date Type Department Care Team (Late st Contact Info) Description 11/27/2023 1:30 PM EDT Office Visit Orthopaedics [facility] [address] [place] [place] [address] Alejo Patterson PA-C [address] [place] [place] [address] 02/28/2024 10:40 AM EDT Office Visit Family Medicine [address] [place] [phone] Sammi Prieto MD [address] [place] [address] [place] [address] 05/12/2024 11:00 AM EST Cardiac Studies Cardiac Studies, [facility] [address] [place] [address] 05/20/2024 11:00 AM EST Office Visit Cardiology, [facility] [address] [address] Flaca Huertas PA-C [address] [place] [address] 12/17/2024 11:00 AM EDT Nurse Only Ancillary [address] [place] [address] [place], Nurse Annual [address] [place] [address] Scheduled Procedures Name Priority Associated Diagnoses Date/Ti me COLONOSCOPY FLEXIBLE PROXIMA L DIAGNOSTIC Recall History of colonic polyps Health Maintenance Due Date Last Done Comments Hepatitis C Screening 1963 Pneumococcal Vaccine: 65+ Years (3 of 3 - PPSV23 or PCV20) 03/12/2020 03/12/2019, 08/07/2008 Zoster Vaccines (3 of 3) 12/09/2020 10/14/2020, 01/30 COVID-19 Vaccine (3 - 2022- season) 2023 09/10/2020, 07/04/2020 Albumin/Creatinine Ratio 01/24/2024 023, 05/18/2022, 07/29/2021, Additional history exists HbA1c 02/25/2024 08/27/2023, 090 10/2022, 11/15/2022, Additional history exists GFR 03/06/2024 03/06/2023, 12/31, 11/15/2022, Additional history exists Diabetic Eye Exam 05/14/2024 05/14/2023, , 04/04/2021, Additional history exists Diabetic Foot Exam 11/21/2024 11/22/2023, 1 07/18/2021, 10/21/2020, Additional history exists Colonoscopy 01/17/2026 01/17/2023, 12/30, 03/10/2021, Additional history exists DTaP,Tdap,and Td Vaccines (4 - Td or Tdap) 10/21/2030 10/21/2020 (Not indicated), 07/02/2004, 07/02/2004 RETIRED - COLONOSCOPY-ANNUAL AGES 18-100 Discontinued 01/17/2023, 01/17/2023, 03/10/2021, Additional history exists RETIRED - COLONOSCOPY-EVERY 5 YRS AGES 18-100 Discontinued 01/17/2023, 01/17/2023, 03/10/2021, Additional history exists Influenza Vaccine (FLU shot) Completed 03/06/2023, 05/10/2022, 04/27/2021, Additional history exists GARDASIL-HPV IMMUNIZATION SERIES Aged Out No longer eligible based on patient's age to complete this topic Hepatitis B Aged Out No longer eligi ble based on patient's age to complete this topic MENINGOCOCCAL (MENACTRA/MENVEO) Aged Out No longer eligible based on patient's age to complete this topic documented as of this encounter Medical Devices Not on filedocumented as of this encounter Visit Diagnoses Diagnosis Risk and functional assessment- Primary Screening for unspecified condition Routine general medical examination at a health care facility Type 2 diabetes mellitus with hemoglobin A1c goal of less than 7.0% ([facility]) Advanced care planning/counseling discussion Other specified counseling documented in this encounter Care Teams Data Entry Analyst Relationship Specialty Start Date End Date Sammi Prieto MD [address] [place] [address] [place] [id number] PCP - General Family Medicine 05/06/21 documented as of this encounter
--- OUTSIDE RECORDS SUMMARY | 2023-11-30 22:15 | External Medical Summary | Summary of Care ---
Author Name Unknown Organization [facility] Address [address] [place] [address] Phone [phone] Care Team Providers Care Psych Social Worker Name Role Phone Sammi Prieto MD Primary Care Provide r Reason for Referral * Evaluate & Treat - Unlimited Visits (Within 10 days (routine)) - Pending Review Specialty Diagnoses / Procedures Referred By Maribel renteria Referred To Contact Orthopaedic Surgery / Orthopedics Diagnoses Pain of finger of left hand Purnima Scott PA-C [address] [place] [address] [place] [id number] Referral ID Status Reason Start Date Expiration Date Visits Requested Visits Authorized [id number] Pending Review Specialty Services Required 11/21/[phone] Question Answer Referral Priority Within 10 days (routine) Where should this appointment be scheduled? [facility] What body part is the patient being seen for? Hand What condition is the patient being seen for? Sprain/Strain/Tear/Other Comments Contracture hand - painful Reason for Visit * Reason Comments Acute Encounter Details Date Type Department Care Team (Late st Contact Info) Description 11/21/2023 12:00 PM EDT Office Visit Family Medicine [address] [place] [phone] Purnima Scott PA-C [address] [place] [address] [place] [phone] Pain of finger of left hand* Allergies No known active allergiesdocumented as of this encounter (statuses as of 11/21/2023) Medications Medication Sig Dispensed Refills Start Date End Date Status FREESTYLE LITE DEVIIndications:DM type 2, goal A1c below 7 test bloodsugars twice a day,fasting and two hours after a meal;Diagnosis 250.00 250 Device 3 09/07/2011 Active latanoprost (XALATAN) 0.005 % ophthalmic solution Instill 1 Drop into both eyes in the morning. Active polyethylene glycol 3350 (MIRALAX) 255 gram powderIndications:C onstipation, slow transit Dissolve one heaping tablespoon in 8 ounces of water or juice - one dose per day 3 Bottle 1 09/18/2019 Active Neuriva Oral Capsule Take by mouth daily. Active FreeStyle Lite Test In Vitro Strip (Glucose Blood) Test once a day DxE11.9 100 Strip 5 10/07/2021 Active Sildenafil Citrate 100 MG Oral TabletIndications:E rectile dysfunction, unspecified erectile dysfunction type Take 1 Tablet by mouth daily as needed for Erectile Dysfunction. 30 Tablet 2 08/21/2022 Active amLODIPine Besylate 10 MG Oral Tablet (Norvasc)Indication s:HTN, goal below 140/90 TAKE 1 TABLET BY MOUTH EVERY DAY 90 Tablet 3 03/18/2023 Active Aspirin Low Dose 81 MG Oral Tablet Delayed Release (aspirin enteric coated) TAKE 1 TABLET BY MOUTH EVERY DAY IN THE MORNING 90 Tablet 3 03/18/2023 Active Pantoprazole Sodium 40 MG Oral Tablet Delayed Release (Protonix)Indicatio ns:Gastroesophageal reflux disease TAKE 1 TAB BY MOUTH DAILY 30 MINUTES BEFORE THE FIRST MEAL OF THE DAY FOR HEARTBURN 90 Tablet 3 06/15/2023 Active Fluticasone Propionate 50 MCG/ACT Nasal Suspension (Flonase)Indication s:Post-nasal drip ADMINISTER 1 SPRAY INTO EACH NOSTRIL IN THE MORNING AND 1 SPRAY IN THE EVENING FOR 5 DAYS 16 mL 1 08/27/2023 Active Sertraline HCl 50 MG Oral Tablet (Zoloft)Indications :Anxiety TAKE 1 TABLET BY MOUTH EVERY DAY 90 Tablet 1 10/27/2023 Active Atorvastatin Calcium 40 MG Oral Tablet (Lipitor)Indication s:Dyslipidemia, goal LDL below 100 TAKE 1 TABLET BY MOUTH EVERY DAY 90 Tablet 1 10/27/2023 Active metFORMIN HCl ER 500 MG Oral Tablet Extended Release 24 Hour (Glucophage XR)Indications:Type 2 diabetes mellitus with hemoglobin A1c goal of less than 7.0% (HCC) TAKE 2 TABLETS BY MOUTH EVERY MORNING 180 Tablet 1 11/10/2023 Active Clopidogrel Bisulfate 75 MG Oral Tablet (pLAVix)Indications :History of stroke TAKE 1 TABLET BY MOUTH EVERY DAY 90 Tablet 1 11/10/2023 Active glipiZIDE ER 10 MG Oral Tablet Extended Release 24 Hour (Glucotrol XL)Indications:Type 2 diabetes mellitus with hemoglobin A1c goal of less than 7.0% (HCC) TAKE 1 TABLET BY MOUTH EVERY DAY 90 Tablet 1 11/10/2023 Active Lisinopril-hydroCHL OROthiazide 20-12.5 MG Oral Tablet TAKE 1 TABLET BY MOUTH EVERY DAY 90 Tablet 1 11/10/2023 Active documented as of this encounter (statuses as of 11/21/2023) Active Problems Problem Noted Date Diagnosed Date [...] as of this encounter (statuses as of 11/21/2023) Resolved Problems Problem Noted Date Diagnosed Date [...] as of this encounter (statuses as of 11/21/2023) Immunizations Name Administration Dates Next Due COVID-19 [...] Smoking Tobacco: Former Cigars Smokeless Tobacco: Never Alcohol Use Standard Drinks/Week Comments Yes 2 [...] Male 06/11/2019 9:48 AM EST Sexual Orientation Not on file Job Start Date Occupation Industry Not on file Not on file Not on file documented as of this encounter Last Filed Vital Signs Vital Sign Reading Time Taken Comments Blood Pressure 118/60 11/21/2023 11:56 AM EDT Pulse 80 11/21/2023 11:56 AM EDT Temperature 36.2 C (97.2 F) 11/21/2023 11:56 AM E DT Respiratory Rate 16 11/21/2023 11:56 AM EDT Oxygen Saturation 95% 11/21/2023 11:56 AM EDT Inhaled Oxygen Concentration - - Weight 99.3 kg (219 lb) 11/21/2023 11:56 AM EDT Height - - Body Mass Index 29.7 01/12/2023 12:26 PM EDT documented in this encounter Progress Notes * Purnima Scott PA-C - 11/21/2023 12:07 PM EDT Nursing Notes: Cynthia Valle RN 11/21/23 1201 Sign at exiting of workspace Acute visit for pain of left hand and pinky will not straighten out, it has been like this for several years, but is recently causing pain, this was xrayed in 2020. 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 Pt has a contracture at this finger. He is unable to straighten it. Pt has some pain, at times. Review of patient's allergies indicates: No Known Allergies Current Outpatient Medications Medication Sig Dispense Refill FREESTYLE LITE HORACIO test bloodsugars twice a day,fasting and two hours after a meal;Diagnosis 250.00 250 Device 3 latanoprost (XALATAN) 0.005 % ophthalmic solution Instill 1 Drop into both eyes in the morning. polyethylene glycol 3350 (MIRALAX) 255 gram powder Dissolve one heaping tablespoon in 8 ounces of water or juice - one dose per day 3 Bottle 1 Neuriva Oral Capsule Take by mouth daily. FreeStyle Lite Test In Vitro Strip (Glucose Blood) Test once a day DxE11.9 100 Strip 5 Sildenafil Citrate 100 MG Oral Tablet Take 1 Tablet by mouth daily as needed for Erectile Dysfunction. 30 Tablet 2 amLODIPine Besylate 10 MG Oral Tablet (Norvasc) [...] THE DAY FOR HEARTBURN 90 Tablet 3 Fluticasone Propionate 50 MCG/ACT Nasal Suspension (Flonase) ADMINISTER 1 SPRAY INTO EACH NOSTRIL IN THE MORNING AND 1 SPRAY IN THE EVENING FOR 5 DAYS 16 mL 1 Sertraline HCl 50 MG Oral Tablet (Zoloft) [...] BY MOUTH EVERY DAY 90 Tablet 1 No current facility-administered medications for this visit. Facility-Administered Medications Ordered in Other Visits Medication Dose Route Frequency Provider Last Rate Last Admin ondansetron (ZOFRAN) inj Once PRN Leticia Lafleur, RETURNS PROCESSOR 4 mg at 12/08/15 1109 Past Medical History: Diagnosis Date Benign neoplasm [...] Persistent insomnia 07/07/2014 PVD (peripheral vascular disease) (HCC) 06/20/2012 Retinal detachment 1996 Rt side s/p surgery Retinal detachment with retinal defect Sebaceous cyst 11/18/2002 Spinal stenosis, lumbar region, with neurogenic claudication 12/14/2011 Tear of posterior cruciate ligament of knee 01/22/2014 Left knee Thoracic degenerative disc disease 07/10/2013 Vitamin D insufficiency 09/24/2014 Social History Socioeconomic History Marital status: Spouse name: dori Number of children: 2 Years of education: Not on file Highest education level: Not on file Occupational History 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 Employer: [employer] Comment: retired Tobacco Use Smoking status: Former Types: Cigars Smokeless tobacco: Never Vaping Use Vaping status: Never Used Substance and Sexual Activity Alcohol use: Yes Alcohol/week: 2.0 standard drinks of alcohol Types: 2 12 oz of beer per week Comment: a beer or two every couple of weeks Drug use: No Sexual activity: Yes Partners: Female Other Topics Concern Service No Blood Transfusions No Caffeine Concern No Occupational Exposure Yes Hobby Hazards No Sleep Concern No Stress Concern No Weight Concern Yes Special Diet Yes Back Care Yes Exercise Yes Bike Helmet Not Asked Seat Belt Yes Self-Exams Not Asked Social History Narrative Not on file Social Determinants of Health Financial Resource Strain: Not on file Food Insecurity: No Food Insecurity (02/03/2020) Hunger Vital Sign Worried About Running Out of Food in the Last Year: Never true Ran Out of Food in the Last Year: Never true Transportation Needs: Not on file Physical Activity: Not on file Stress: Not on file Social Connections: Not on file Intimate Partner Violence: Not on file Housing Stability: Not on file O:Blood pressure 118/60, pulse 80, temperature 36.2 C (97.2 F), resp. rate 16, weight 99.3 kg (219 lb), SpO2 95%. GENERAL: alert, healthy, and no distress EXTREMITIES: left hand - fifth finger - contracture. Unable to fully extend with active or passive ROM A:Pain of finger of left hand (Primary) - ORTHOPAEDICS REFERRAL OP Will refer to ortho. Any questions/problems, please call. If anything changes, worsens, develops new sx, please call [facility]. Follow Up: Return if symptoms worsen or fail to improve. Purnima Scott PA-C documented in this encounter Nursing Notes * Cynthia Valle RN - 11/21/2023 11:56 AM EDT Acute visit for pain of left hand and pinky will not straighten out, it has been like this for several years, but is recently causing pain, this was xrayed in 2020. 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 it up documented in this encounter Plan of Treatment Upcoming Encounters Date Type Department Care Team (Late st Contact Info) Description 11/22/2023 9:00 AM EDT Nurse Only Ancillary [address] [place] [address] [place], Nurse Annual [address] [place] [address] 11/27/2023 1:30 PM EDT Office Visit Orthopaedics [facility] [address] [address] Alejo Patterson PA-C [address] [place] [address] 02/28/2024 10:40 AM EDT Office Visit Family Medicine [address] [place] [phone] Sammi Prieto MD [address] [place] [address] [place] [address] 05/12/2024 11:00 AM EST Cardiac Studies Cardiac Studies, [facility] [address] [address] 05/20/2024 11:00 AM EST Office Visit Cardiology, [facility] [address] [address] Flaca Huertas PA-C [address] [place] [address] Scheduled Procedures Name Priority Associated Diagnoses Date/Ti me COLONOSCOPY FLEXIBLE PROXIMA L DIAGNOSTIC Recall History of colonic polyps Scheduled Referrals Name Type Priority Associated Diagnoses Order Schedule ORTHOPAEDICS REFERRAL OP Referral Within 10 days (routine) Pain of finger of left hand Ordered: 11/21/2023 Health Maintenance Due Date Last Done Comments Hepatitis C Screening 1963 Pneumococcal Vaccine: 65+ Years (3 of 3 - PPSV23 or PCV20) 03/12/2020 03/12/2019, 08/07/2008 Zoster Vaccines (3 of 3) 12/09/2020 10/14/2020, 01/30 COVID-19 Vaccine (3 - season) 2023 09/10/2020, 07/04/2020 Diabetic Foot Exam 05/18/2023 05/18/2022, 0 10/21/2020, 01/08/2020, Additional history exists Albumin/Creatinine Ratio 01/24/2024 023, 05/18/2022, 07/29/2021, Additional history exists HbA1c 02/25/2024 08/27/2023, 09/0 10/2022, 11/15/2022, Additional history exists GFR 03/06/2024 03/06/2023, 07/2 10/2022, 11/15/2022, Additional history exists Diabetic Eye Exam 05/14/2024 05/14/2023, , 04/04/2021, Additional history exists Colonoscopy 01/17/2026 01/17/2023, 12/30, [...] as of this encounter Visit Diagnoses Diagnosis Pain of finger of left hand- Primary Pain in limb documented in this encounter Care Teams Psych Social Worker Relationship Specialty Start Date End Date Sammi Prieto MD [address] [place] [address] [place] [address] PCP - General Family Medicine 05/06/21 documented as of this encounter
--- OUTSIDE RECORDS SUMMARY | 2023-11-30 22:15 | External Medical Summary | Summary of Care ---
Author Name Unknown Organization [facility] Address [address] [facility] [place] [address] Phone [phone] Care Team Providers Care Environmental Services Attendant Name Role Phone Sammi Prieto MD Primary Care Provide r Encounter Details Date Type Department Care Team (Late st Contact Info) Description 11/13/2023 Orders Only PATIENT PORTAL DO NOT DELETE THIS DEPT USED BY [place] [id number] Allergies No known active allergiesdocumented as of this encounter (statuses as of 11/13/2023) Medications Medication Sig Dispensed Refills Start Date End Date Status FREESTYLE LITE DEVIIndications:DM type 2, goal A1c below 7 test bloodsugars twice a day,fasting and two hours after a meal;Diagnosis 250.00 250 Device 3 09/07/2011 Active latanoprost (XALATAN) 0.005 % ophthalmic solution Instill 1 Drop into both eyes in the morning. 0 Active polyethylene glycol 3350 (MIRALAX) 255 gram powderIndications:C onstipation, slow transit Dissolve one heaping tablespoon in 8 ounces of water or juice - one dose per day 3 Bottle 1 09/18/2019 Active Neuriva Oral Capsule Take by mouth daily. 0 Active FreeStyle Lite Test In Vitro Strip [...] as of this encounter (statuses as of 11/13/2023) Active Problems Problem Noted Date Diagnosed Date [...] as of this encounter (statuses as of 11/13/2023) Resolved Problems Problem Noted Date Diagnosed Date [...] as of this encounter (statuses as of 11/13/2023) Immunizations Name Administration Dates Next Due COVID-19 [...] on file documented as of this encounter Plan of Treatment Upcoming Encounters Date Type Department Care Team (Late st Contact Info) Description 11/16/2023 9:30 AM EDT Office Visit Cardiology, [facility] [address] [place] [address] Flaca Huertas PA-C [address] [place] [address] 02/28/2024 10:40 AM EDT Office Visit Family Medicine [address] [place] [phone] Sammi Prieto MD [address] [place] [address] [place] [id number] Scheduled Procedures Name Priority Associated Diagnoses Date/Ti [...] Not on filedocumented as of this encounter Care Teams Environmental Services Attendant Relationship Specialty Start Date End Date Sammi Prieto MD [address] [place] [address] [place] [address] PCP - General Family Medicine 05/06/21 documented as of this encounter
--- OUTSIDE RECORDS SUMMARY | 2023-11-30 22:15 | External Medical Summary | Summary of Care ---
Author Name Unknown Organization [facility] Address [address] [facility] [place] [address] Phone [phone] Care Team Providers Care Project Manager Name Role Phone Kat Prieto MD Primary Care Provide r Reason for Visit * Reason Comments eRx-Medication Refill Encounter Details Date Type Department Care Team (Late st Contact Info) Description 11/09/2023 Refill Family Medicine [address] [phone] Kat Prieto MD [address] [place] [address] [place] [address] Current mild episode of major depressive disorder without prior episode ([facility])*; Type 2 diabetes mellitus with hemoglobin A1c goal of less than 7.0% ([facility]); History of stroke; Dyslipidemia, goal LDL below 70; Gastroesophageal reflux disease, unspecified whether esophagitis present; HTN, goal below 140/90; Nocturnal leg cramps; PVD (peripheral vascular disease) ([facility]); Encounter for long-term (current) use of medications; Laboratory exam ordered as part of routine general medical examination Allergies No known active allergiesdocumented as of this encounter (statuses as of 11/12/2023) Medications Medication Sig Dispensed Refills Start Date End Date Status LYLY HAHN DEVIIndications: DM type 2, goal A1c below 7 test bloodsugars twice a day,fasting and two hours after a meal;Diagnosis 250.00 250 Device 3 09/07/2011 Active latanoprost (XALATAN) 0.005 % ophthalmic solution Instill 1 Drop into both eyes in the morning. 0 Active polyethylene glycol 3350 (MIRALAX) 255 gram powderIndication s:Constipation, slow transit Dissolve one heaping tablespoon in 8 ounces of water or juice - one dose per day 3 Bottle 1 09/18/2019 Active Neuriva Oral Capsule Take by mouth daily. 0 Active FreeStyle Lite Test In Vitro Strip (Glucose Blood) Test once a day DxE11.9 100 Strip 5 10/07/2021 Active Sildenafil Citrate 100 MG Oral TabletIndication s:Erectile dysfunction, unspecified erectile dysfunction type Take 1 Tablet by mouth daily as needed for Erectile Dysfunction. 30 Tablet 2 08/21/2022 Active amLODIPine Besylate 10 MG Oral Tablet (Norvasc)Indicat ions:HTN, goal below 140/90 TAKE 1 TABLET BY MOUTH EVERY DAY 90 Tablet 3 03/18/2023 Active Aspirin Low Dose 81 MG Oral Tablet Delayed Release (aspirin enteric coated) TAKE 1 TABLET BY MOUTH EVERY DAY IN THE MORNING 90 Tablet 3 03/18/2023 Active Pantoprazole Sodium 40 MG Oral Tablet Delayed Release (Protonix)Indica tions:Gastroesop hageal reflux disease TAKE 1 TAB BY MOUTH DAILY 30 MINUTES BEFORE THE FIRST MEAL OF THE DAY FOR HEARTBURN 90 Tablet 3 06/15/2023 Active Fluticasone Propionate 50 MCG/ACT Nasal Suspension (Flonase)Indicat ions:Post-nasal drip ADMINISTER 1 SPRAY INTO EACH NOSTRIL IN THE MORNING AND 1 SPRAY IN THE EVENING FOR 5 DAYS 16 mL 1 08/27/2023 Active Sertraline HCl 50 MG Oral Tablet (Zoloft)Indicati ons:Anxiety TAKE 1 TABLET BY MOUTH EVERY DAY 90 Tablet 1 10/27/2023 Active Atorvastatin Calcium 40 MG Oral Tablet (Lipitor)Indicat ions:Dyslipidemi a, goal LDL below 100 TAKE 1 TABLET BY MOUTH EVERY DAY 90 Tablet 1 10/27/2023 Active metFORMIN HCl ER 500 MG Oral Tablet Extended Release 24 Hour (Glucophage XR)Indications:T ype 2 diabetes mellitus with hemoglobin A1c goal of less than 7.0% (HCC) TAKE 2 TABLETS BY MOUTH EVERY MORNING 180 Tablet 1 11/10/2023 Active Clopidogrel Bisulfate 75 MG Oral Tablet (pLAVix)Indicati ons:History of stroke TAKE 1 TABLET BY MOUTH EVERY DAY 90 Tablet 1 11/10/2023 Active glipiZIDE ER 10 MG Oral Tablet Extended Release 24 Hour (Glucotrol XL)Indications:T ype 2 diabetes mellitus with hemoglobin A1c goal of less than 7.0% (HCC) TAKE 1 TABLET BY MOUTH EVERY DAY 90 Tablet 1 11/10/2023 Active Lisinopril-hydro CHLOROthiazide 20-12.5 MG Oral Tablet TAKE 1 TABLET BY MOUTH EVERY DAY 90 Tablet 1 11/10/2023 Active metFORMIN HCl ER 500 MG Oral Tablet Extended Release 24 Hour (Glucophage XR)Indications:T ype 2 diabetes mellitus with hemoglobin A1c goal of less than 7.0% (HCC) Take 2 Tablets by mouth in the morning. 180 Tablet 1 05/18/2023 4 Discontinued glipiZIDE ER 10 MG Oral Tablet Extended Release 24 Hour (Glucotrol XL) TAKE 1 TABLET BY MOUTH EVERY DAY 90 Tablet 1 05/20/2023 4 Discontinued Lisinopril-hydro CHLOROthiazide 20-12.5 MG Oral Tablet TAKE 1 TABLET BY MOUTH EVERY DAY 90 Tablet 1 05/20/2023 4 Discontinued Clopidogrel Bisulfate 75 MG Oral Tablet (pLAVix)Indicati ons:History of stroke TAKE 1 TABLET BY MOUTH EVERY DAY 90 Tablet 1 05/20/2023 4 Discontinued documented as of this encounter (statuses as of 11/12/2023) Active Problems Problem Noted Date Diagnosed Date [...] as of this encounter (statuses as of 11/12/2023) Resolved Problems Problem Noted Date Diagnosed Date Resolved Date Morbid obesity due to excess calories 12/04/2019 10/21/2020 Sprain of posterior cruciate ligament of left knee 01/22/2014 01/22/2014 HTN, goal below 140/80 02/19/201209/15 Overview: Per HTN Protocol #27. HTN, goal below 130/80 06/23/200902/21 Mixed dyslipidemia 02/08/2009 12 9 Overview: Per Lipid Taxonomy. DM type 2, not at goal 11/06/200804/15 Overview: Modified per Diabetes protocol #14. DM type 2, not at goal 07/31/200809/04 HTN, goal to be determined 07/31/2008 1 07/25/2008 Overview: Modified per HTN protocol #16. Sebaceous cyst 11/18/2002 01/25/2011 documented as of this encounter (statuses as of 11/12/2023) Immunizations Name Administration Dates Next Due COVID-19 [...] on file documented as of this encounter Miscellaneous Notes * Telephone Encounter - Otilia Red - 11/12/2023 7:36 PM EDT Received message from [facility] regarding patient needing labs. Patient was notified. Successfully contacted patient and provided [facility] message. * Telephone Encounter - Samuel Whelan [facility] - 11/10/2023 9:00 AM EDTSigned Prescriptions: Disp Refills metFORMIN HCl ER 500 MG Oral Tablet Extend*180 Ta*1 Sig: TAKE 2 TABLETS BY MOUTH EVERY MORNING Authorizing Provider: KAT PRIETO Ordering User: SAMUEL WHELAN Clopidogrel Bisulfate 75 MG Oral Tablet (p*90 Tab*1 Sig: TAKE 1 TABLET BY MOUTH EVERY DAY Authorizing Provider: KAT PRIETO Ordering User: Walter WHELAN glipiZIDE ER 10 MG Oral Tablet Extended Re*90 Tab*1 Sig: TAKE 1 TABLET BY MOUTH EVERY DAY Authorizing Provider: KAT PRIETO Ordering User: SAMUEL WHELAN Lisinopril-hydroCHLOROthiazide 20-12.5 MG *90 Tab*1 Sig: TAKE 1 TABLET BY MOUTH EVERY DAY Authorizing Provider: KAT PRIETO Ordering User: SAMUEL WHELAN * Telephone Encounter - Samuel Whelan [facility] - 11/10/2023 8:54 AM EDT Provided 90 days supply with 1 refill until upcoming appt. Reviewed AMP report, Care Gaps/Health Maintenance, medications list, and for any routine labs typically ordered for this patient. Lab ordersplaced 11/10/23 . Please contact patient to advise of labs ordered for blood draw AND URINE specimen (patient will have to be able to void to provide sample). Fasting is not required. Advise to obtain labs before his scheduled office visit 02/28/2024. Thanks, Althea CunhaPh. Clinical Pharmacist [facility] [phone] ext [phone] 11/10/2023,8:59 AM documented in this encounter Plan of Treatment Upcoming Encounters Date Type Department Care Team (Late st Contact Info) Description 11/16/2023 9:30 AM EDT Office Visit Cardiology, [facility] [address] [place] [address] Flaca Huertas PA-C [address] [place] [phone] 02/28/2024 10:40 AM EDT Office Visit Family Medicine [address] [place] [phone] Kat Prieto MD [address] [place] [address] [place] [address] Scheduled Orders Name Type Priority Associated Diagnoses Orde r Schedule ALBUMIN / CREATININE RATIO, URINE Lab Routine Type 2 diabetes mellitus with hemoglobin A1c goal of less than 7.0% (HCC) HTN, goal below 140/90 Laboratory exam ordered as part of routine general medical examination Expected: 11/11/2023 (Approximate), Expires: 11/09/2024 HEMOGLOBIN A1C Lab Routine Type 2 diabetes mellitus with hemoglobin A1c goal of less than 7.0% (HCC) Encounter for long-term (current) use of medications Laboratory exam ordered as part of routine general medical examination Expected: 11/11/2023 (Approximate), Expires: 11/09/2024 MAGNESIUM Lab Routine Gastroesophageal reflux disease, unspecified whether esophagitis present Nocturnal leg cramps Encounter for long-term (current) use of medications Laboratory exam ordered as part of routine general medical examination Expected: 11/11/2023 (Approximate), Expires: 11/09/2024 VITAMIN B12 Lab Routine Current mild episode of major depressive disorder without prior episode (HCC) Encounter for long-term (current) use of medications Laboratory exam ordered as part of routine general medical examination Expected: 11/11/2023 (Approximate), Expires: 11/09/2024 COMPREHENSIVE METABOLIC PANEL Lab Routine Type 2 diabetes mellitus with hemoglobin A1c goal of less than 7.0% (HCC) HTN, goal below 140/90 Encounter for long-term (current) use of medications Laboratory exam ordered as part of routine general medical examination Expected: 11/11/2023, Expires: 11/09/2024 CBC Lab Routine Type 2 diabetes mellitus with hemoglobin A1c goal of less than 7.0% (HCC) HTN, goal below 140/90 PVD (peripheral vascular disease) (HCC) Encounter for long-term (current) use of medications Laboratory exam ordered as part of routine general medical examination Expected: 11/11/2023 (Approximate), Expires: 11/09/2024 Scheduled Procedures Name Priority Associated Diagnoses Date/Ti me COLONOSCOPY FLEXIBLE PROXIMA L DIAGNOSTIC Recall History of colonic polyps Health Maintenance Due Date Last Done Comments Hepatitis C Screening 1963 Pneumococcal Vaccine: 65+ Years (3 of 3 - PPSV23 or PCV20) 03/12/2020 03/12/2019, 08/07/2008 Zoster Vaccines (3 of 3) 12/09/2020 10/14/2020, 01/30 COVID-19 Vaccine ( - season) 2023 09/10/2020, 07/04/2020 Diabetic Foot [...] as of this encounter Visit Diagnoses Diagnosis Current mild episode of major depressive disorder without prior episode (HCC)- Primary Type 2 diabetes mellitus with hemoglobin A1c goal of less than 7.0% ([facility]) History of stroke Transient ischemic attack (TIA), and cerebral infarction without residual deficits Dyslipidemia, goal LDL below 70 Other and unspecified hyperlipidemia Gastroesophageal reflux disease, unspecified whether esophagitis present HTN, goal below 140/90 Unspecified essential hypertension Nocturnal leg cramps Sleep related leg cramps PVD (peripheral vascular disease) (HCC) Peripheral vascular disease, unspecified Encounter for long-term (current) use of medications Encounter for long-term (current) use of other medications Laboratory exam ordered as part of routine general medical examination Laboratory examination ordered as part of a routine general medical examination documented in this encounter Care Teams Project Manager Relationship Specialty Start Date End Date Kat Prieto MD NPI: [id number] [place] [address] [place] [address] PCP - General Family Medicine 05/06/21 documented as of this encounter
--- OUTSIDE RECORDS SUMMARY | 2023-11-30 22:15 | External Medical Summary | Summary of Care ---
Author Name Unknown Organization [facility] Address [address] [facility] [place] [address] Phone [phone] Care Team Providers Care Recruiter Specialist Name Role Phone Sammi Prieto MD Primary Care Provide r Reason for Visit * Reason Comments NEW PATIENT Left hand * Evaluate & Treat - Unlimited Visits (Within 10 days (routine)) - Pending Review Specialty Diagnoses / Procedures Referred By Maribel t Referred To Contact Orthopaedic Surgery / Orthopedics Diagnoses Pain of finger of left hand Purnima Scott PA-C [address] [place] [address] [place] [address] Referral ID Status Reason Start Date Expiration Date Visits Requested Visits Authorized [id number] Pending Review Specialty Services Required 11/21/[phone] Encounter Details Date Type Department Care Team (Late st Contact Info) Description 11/27/2023 1:30 PM EDT Office Visit Orthopaedics [facility] [address] [place] [address] Alejo Patterson PA-C [address] [place] [address] Abscess around fingernail of left hand*; Dupuytren's contracture of left hand Allergies No known active allergiesdocumented as of this encounter (statuses as of 11/27/2023) Medications Medication Sig Dispensed Refills Start Date End Date Status LYLY HAHN DEVIIndications:DM type 2, goal A1c below 7 [...] 10/07/2021 Active Sildenafil Citrate 100 MG Oral TabletIndications: Erectile dysfunction, unspecified erectile dysfunction type Take 1 Tablet by mouth daily as needed for Erectile Dysfunction. 30 Tablet 2 08/21/2022 Active amLODIPine Besylate 10 MG Oral Tablet (Norvasc)Indicatio ns:HTN, goal below 140/90 TAKE 1 TABLET BY MOUTH EVERY DAY 90 Tablet 3 03/18/2023 Active Aspirin Low Dose 81 MG Oral Tablet Delayed Release (aspirin enteric coated) TAKE 1 TABLET BY MOUTH EVERY DAY IN THE MORNING 90 Tablet 3 03/18/2023 Active Pantoprazole Sodium 40 MG Oral Tablet Delayed Release (Protonix)Indicati ons:Gastroesophage al reflux disease TAKE 1 TAB BY MOUTH DAILY 30 MINUTES BEFORE THE FIRST MEAL OF THE DAY FOR HEARTBURN 90 Tablet 3 06/15/2023 Active Sertraline HCl 50 MG Oral Tablet (Zoloft)Indication s:Anxiety TAKE 1 TABLET BY MOUTH EVERY DAY 90 Tablet 1 10/27/2023 Active Atorvastatin Calcium 40 MG Oral Tablet (Lipitor)Indicatio ns:Dyslipidemia, goal LDL below 100 TAKE 1 TABLET BY MOUTH EVERY DAY 90 Tablet 1 10/27/2023 Active metFORMIN HCl ER 500 MG Oral Tablet Extended Release 24 Hour (Glucophage XR)Indications:Typ e 2 diabetes mellitus with hemoglobin A1c goal of less than 7.0% (HCC) TAKE 2 TABLETS BY MOUTH EVERY MORNING 180 Tablet 1 11/10/2023 Active Clopidogrel Bisulfate 75 MG Oral Tablet (pLAVix)Indication s:History of stroke TAKE 1 TABLET BY MOUTH EVERY DAY 90 Tablet 1 11/10/2023 Active glipiZIDE ER 10 MG Oral Tablet Extended Release 24 Hour (Glucotrol XL)Indications:Typ e 2 diabetes mellitus with hemoglobin A1c goal of less than 7.0% (HCC) TAKE 1 TABLET BY MOUTH EVERY DAY 90 Tablet 1 11/10/2023 Active Lisinopril-hydroCH LOROthiazide 20-12.5 MG Oral Tablet TAKE 1 TABLET BY MOUTH EVERY DAY 90 Tablet 1 11/10/2023 Active Cephalexin 500 MG Oral Capsule Take 1 Capsule by mouth in the morning and 1 Capsule at noon and 1 Capsule in the evening and 1 Capsule before bedtime. Do all this for 10 days. Take the probiotic with your antibiotic. 40 Capsule 11/27/2023 12/07/2023 Active documented as of this encounter (statuses as of 11/27/2023) Active Problems Problem Noted Date Diagnosed Date [...] as of this encounter (statuses as of 11/27/2023) Resolved Problems Problem Noted Date Diagnosed Date [...] as of this encounter (statuses as of 11/27/2023) Immunizations Name Administration Dates Next Due COVID-19 [...] Smoking Tobacco: Former Cigars Smokeless Tobacco: Never Comments:One or 2 cigars a m th Alcohol Use Standard Drinks/Week Comments Yes 2 [...] on file documented as of this encounter Progress Notes * Alejo Patterson PA-C - 11/27/2023 1:21 PM EDT Subjective Nav Kay is a 78 year old male. Chief Complaint Patient presents with NEW PATIENT Left hand HPI: new patient referred regarding contracture of the left hand. Denies any injury or fall. Deniesnumbness or tingling. Reports that the little finger has been in a flexed position for years now. Ideally would like this surgically addressed. Unfortunately, the patient states that he recently developed a small appearing blister that he believes has infection underneath of it and is becoming painful. Patient is diabetic with most recent A1c 7.6. Here with his daughter. Denies any fevers or chills. No night sweats. PMH: Patient Active Problem List Diagnosis Overweight Esophageal [...] with neurogenic claudication PVD (peripheral vascular disease) ([facility]) Constipation, slow transit Thoracic degenerative disc disease [...] Dupuytren's contracture of left hand Diabetic polyneuropathy ([facility]) Nonrheumatic aortic valve stenosis Current Outpatient Medications Medication Sig Dispense Refill [...] ondansetron (ZOFRAN) inj Once PRN Leticia Lafleur, LEAD APPLICATION ARCHITECT 4 mg at 12/08/15 1109 Past Medical [...] performed by Shmuel Levine MD at ENDOSCOPY [facility] COLONOSCOPY, DIAGNOSTIC (RECTUM) 12/08/2015 diverticulosis, repeat 5 yrs/COLONOSCOPY FLEXIBLE PROXIMAL DIAGNOSTIC performed by Shmuel Levine MD at ENDOSCOPY [facility] COLONOSCOPY, DIAGNOSTIC (RECTUM) 03/10/2021 Diverticulosis in sigmoid and descending, 9-2 to 7 mm in descending, transverse, ascending & cecum / biopsies benign adenomatous polyps / 1 year follow up / COLONOSCOPY FLEXIBLE PROXIMAL DIAGNOSTIC performed by Shmuel Levine MD at ENDOSCOPY [facility] COLONOSCOPY, DIAGNOSTIC (RECTUM) 01/17/2023 diverticulosis/hemorrhoids/biopsies show adenomatous polyps/recall 3 years/COLONOSCOPY FLEXIBLE PROXIMAL DIAGNOSTIC performed by Shmule Levine MD at ENDOSCOPY [facility] EGD, FLEXIBLE, DIAGNOSTIC 02/08/2014 EGD, FLEXIBLE, DIAGNOSTIC 02/06/2014 mild gastritis/ESOPHAGOGASTRODUODENOSCOPY (EGD), FLEXIBLE, TRANSORAL, DIAGNOSTIC performed by Ramez Palomino DO at ENDOSCOPY [facility] HEMORRHOIDECTOMY,EXTERNAL, 2 + COLUMNS Hemorrhoidectomy,External LASER TRABECULOPLASTY 12/07/2011 right eye - high pressures- Dr Luna REMOVAL OF TONSILS, UNDER AGE 13 REMOVE CATARACT, INSERT LENS PROSTH Cataract Removal w/ IOL - x 2 Review of patient's allergies indicates: No Known Allergies Family History Problem Relation Name Age of Onset Other (Other) Mother Alzhemers Hypertension Father Family Status Relation Status Mo at age 83 old age Fa at age 49 PR Bro Alive Bro Alive Sis Alive Sis Alive Sis Alive Sis Alive Poly Alive Son Alive Social History Socioeconomic History Marital status: Spouse name: dori Number of children: 2 Years of education: Not on file Highest education level: Not on file Occupational History 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 Employer: [id number] 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: retired Tobacco Use Smoking status: Former Types: Cigars Smokeless tobacco: Never Tobacco comments: One or 2 cigars a mth Vaping Use Vaping status: Never Used Substance [...] Yes Self-Exams Not Asked Social History Narrative Lives alone Social Determinants of Health Financial Resource Strain: Not on file Food Insecurity: No Food Insecurity (11/22/2023) Hunger Vital Sign Worried About Running Out of Food in the Last Year: Never true Ran Out of Food in the Last Year: Never true Transportation Needs: Not on file Physical Activity: Not on file Stress: Not on file Social Connections: Not on file Intimate Partner Violence: Not on file Housing Stability: Not on file Objective There were no vitals taken for this visit. complete review of systems negative General: alert and oriented x3 male, no acute distress, appears currently stated age, pleasant, well nourished Skin: Left upper extremity including hand Reveals a 1 x 1 centimeter localize pocket what appears to be purulence mid aspect of the volar hand in alignment with the 5th ray, ultimately superficial tothe false cord. There is no surrounding erythema. Again, not currently draining. The left little finger is in a permanently flexed position. Neurovascular: Left upper extremity reveals distal pulses +2, capillary refill is under 2 seconds, good sensation light touch, +5 corrugator operator strength, axillary median ulnar radial nerve assess fully intact Musculoskeletal: Exam of the left Hand reveals a palpable false cord most impressive with the little finger but I can also palpate what is likely a false cord without any residual contraction of the ring finger. There is tenderness palpating around the localized area of purulence. X-rays of the patient's right shoulder reveal humeral head located in glenoid fossa. There is no superior migration humeral head. The AC joint is free of separation and degeneration. There is no evidence of osteoarthritis in the glenohumeral joint. No acute findings such as fracture dislocation subluxation. Unable to identify any type of obvious cystic change or masses in the bone. Personal interpretation and documentation regarding today's plain film radiographs performed by myself. ASSESSMENT/PLAN: There are no diagnoses linked to this encounter. Impression: Left little finger Dupuytren contracture, superficial abscess hand Plan: Today 's findings were discussed with the patient. They were educated regarding their diagnosis. Multiple treatment options discussed and agreed upon, including including referral to our hand specialist Andrzej. Offered the patient treatment with our hand specialist in the [facility] andhe has not available until December. Also reviewed with remain a surgical team and scope of practice including availability continues to be an issue. The patient is not willing to wait at time. Nor do I feel that is appropriate. The patient is open to trial course of oral antibiotics and we have discussed the adverse reactions secondary to it was medications and will prophylax accordingly with oral pr obiotic. The patient will avoid offending activity, topical agents, behavior modification, thermal modalities, rest and notify the office with any concerning or unrelenting symptoms. Referral has been placed accordingly. The patient and his daughter are in agreement. The patient has no other questions or concerns. Pleased with today 's care. Call sooner if needed. This chart was completed in part utilizing [employer] Speech Voice Recognition Software. Grammatical errors, random word insertions, prounoun errors, and incomplete sentences are an occasional consequence of this system due to software limitations, ambient noise, and hardware issues. Any formal questions or concerns about the content, text, or information contained within the body of this dictation should be directly addressed to the provider for clarification. Alejo Patterson PA-C documented in this encounter Nursing Notes * Michelle Suarez RN - 11/27/2023 1:23 PM EDT Pt presents today with daughter for left 4th and 5th finger pain. Pain 5/10. 5th finger will not straighten but has been like that for several years, but in the last 2 weeks causing pain. Small area noted that is open but yellow in color and swollen. Able to bend both fingers. RHD. 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 Michelle Suarez RN documented in this encounter Plan of Treatment Upcoming Encounters Date Type Department Care Team (Late st Contact Info) Description 01/17/2024 10:15 AM EDT Office Visit Orthopaedics Andrzej Ruiz [address] [place] [id number] Stefania Tony MD [address] [facility] [place] [address] 02/28/2024 10:40 AM EDT Office Visit Family Medicine [address] [place] [phone] Sammi Prieto MD [address] [place] [address] [place] [address] 05/12/2024 11:00 AM EST Cardiac Studies Cardiac Studies, [facility] [address] [facility] [place] [address] 05/20/2024 11:00 AM EST Office Visit Cardiology, [facility] [address] [facility] [place] [address] Flaca Huertas PA-C [address] [place] [address] 12/17/2024 11:00 AM EDT Nurse Only Ancillary [address] [place] [address] [place], Nurse Annual Wellness [address] [place] [address] [place] [address] Scheduled Procedures Name Priority Associated Diagnoses Date/Ti me COLONOSCOPY FLEXIBLE PROXIMA L DIAGNOSTIC Recall History of colonic polyps Health Maintenance Due Date Last Done Comments Hepatitis C Screening 1963 Pneumococcal Vaccine: 65+ Years (3 of 3 - PPSV23 or PCV20) 03/12/2020 03/12/2019, 08/07/2008 Zoster Vaccines (3 of 3) 12/09/2020 10/14/2020, 01/30 COVID-19 Vaccine (3 - season) 2023 09/10/2020, 07/04/2020 Albumin/Creatinine Ratio 01/24/2024 023, 05/18/2022, 07/29/2021, Additional history exists HbA1c 02/25/2024 08/27/2023, 0 10/2022, 11/15/2022, Additional history exists GFR 03/06/2024 [...] as of this encounter Visit Diagnoses Diagnosis Abscess around fingernail of left hand- Primary Dupuytren's contracture of left hand Contracture of palmar fascia documented in this encounter Care Teams Recruiter Specialist Relationship Specialty Start Date End Date Sammi Prieto MD [address] [place] [address] [place] [address] PCP - General Family Medicine 05/06/21 documented as of this encounter
--- OUTSIDE RECORDS SUMMARY | 2023-11-30 22:16 | External Medical Summary | Summary of Care ---
Author Name Unknown Organization [facility] Address [address] [facility] [place] [address] Phone [phone] Care Team Providers Care Classification Clerk Name Role Phone Sammi Prieto MD Primary Care Provide r Reason for Visit * Reason Comments eRx-Medication Refill Encounter Details Date Type Department Care Team (Late st Contact Info) Description 10/26/2023 Refill Family Medicine [address] [phone] Sammi Prieto MD [address] [place] [address] [place] [address] Anxiety; Dyslipidemia, goal LDL below 100 Allergies No known active allergiesdocumented as of this encounter (statuses as of 10/27/2023) Medications Medication Sig Dispensed Refills Start Date End Date Status FREESTYLE LITE DEVIIndications: DM type 2, goal A1c below [...] THE MORNING 90 Tablet 3 03/18/2023 Active metFORMIN HCl ER 500 MG Oral Tablet Extended Release 24 Hour (Glucophage XR)Indications:T ype 2 diabetes mellitus with hemoglobin A1c goal of less than 7.0% (HCC) Take 2 Tablets by mouth in the morning. 180 Tablet 1 05/18/2023 Active glipiZIDE ER 10 MG Oral Tablet Extended Release 24 Hour (Glucotrol XL) TAKE 1 TABLET BY MOUTH EVERY DAY 90 Tablet 1 05/20/2023 Active Lisinopril-hydro CHLOROthiazide 20-12.5 MG Oral Tablet TAKE 1 TABLET BY MOUTH EVERY DAY 90 Tablet 1 05/20/2023 Active Clopidogrel Bisulfate 75 MG Oral Tablet (pLAVix)Indicati ons:History of stroke TAKE 1 TABLET BY MOUTH EVERY DAY 90 Tablet 1 05/20/2023 Active Pantoprazole Sodium 40 MG Oral Tablet [...] EVERY DAY 90 Tablet 1 10/27/2023 Active Sertraline HCl 50 MG Oral Tablet (Zoloft)Indicati ons:Anxiety TAKE 1 TABLET BY MOUTH EVERY DAY 90 Tablet 1 04/30/2023 4 Discontinued Atorvastatin Calcium 40 MG Oral Tablet (Lipitor)Indicat ions:Dyslipidemi a, goal LDL below 100 TAKE 1 TABLET BY MOUTH EVERY DAY 90 Tablet 1 04/30/2023 4 Discontinued documented as of this encounter (statuses as of 10/27/2023) Active Problems Problem Noted Date Diagnosed Date [...] as of this encounter (statuses as of 10/27/2023) Resolved Problems Problem Noted Date Diagnosed Date [...] as of this encounter (statuses as of 10/27/2023) Immunizations Name Administration Dates Next Due COVID-19 [...] encounter Miscellaneous Notes * Telephone Encounter - George Galindo, [facility] - 10/27/2023 8:03 AM EDT Signed Prescriptions: Disp Refills Sertraline HCl 50 MG Oral Tablet (Zoloft) 90 Tab*1 Sig: TAKE 1 TABLET BY MOUTH EVERY DAYAuthorizing Provider: Brianna PRIETO User: GEORGE GALINDO Atorvastatin Calcium 40 MG Oral Tablet (Li*90 Tab*1 Sig: TAKE 1 TABLET BY MOUTH EVERY DAYAuthorizing Provider: Brianna PRIETO User: GEORGE GALINDO documented in this encounter Plan of Treatment Upcoming Encounters Date Type Department Care Team (Late st Contact Info) Description 11/16/2023 9:30 AM EDT Office Visit Cardiology, [facility] [address] [place] [address] Flaca Huertas PA-C [address] [place] [address] 02/28/2024 10:40 AM EDT Office Visit Family Medicine [address] [place] [phone] Sammi Prieto MD [address] [place] [address] [place] [id number] Scheduled Procedures Name Priority Associated Diagnoses Date/Ti [...] 05/14/2024 05/14/2023, , 04/04/2021, Additional history exists RETIRED - COLONOSCOPY-EVERY 3 YRS AGES 18-100 01/17/2026 01/17/2023, 01/17/2023, 03/10/2021, Additional history exists DTaP,Tdap,and Td Vaccines [...] as of this encounter Visit Diagnoses Diagnosis Anxiety Anxiety state, unspecified Dyslipidemia, goal LDL below 100 Other and unspecified hyperlipidemia documented in this encounter Care Teams Classification Clerk Relationship Specialty Start Date End Date Sammi Prieto MD [address] [place] [address] [place] [address] PCP - General Family Medicine 05/06/21 documented as of this encounter
--- OUTSIDE RECORDS SUMMARY | 2023-11-30 22:16 | External Medical Summary ---
Author Name Unknown Address Unknown Organization K01:[facility] [place] [facility] [address] [facility] [address] [facility] [address] [facility] [address] Laboratory Report Ordering Provider Test Date Status NATHALIALAURAKELIN BRANCHREX 08/27/2023 10:57:28 Radha l Observation Date Value Abnormality Reference (Units ) Status HbA1C 08/27/2023 10:57:28 7.6 Above high normal 4. 0-5.6 (%) Final The use of HbA1c to monitor glycemic status is based on normal hemoglobin and HbA composition. This test should not be used in patients with abnormal hemoglobin that affects the half life of the red blood cell or the in vivo glycation rates. Glucose, estimated average 08/27/2023 10:57:28 171 Above high normal <126 (mg/dL) Keith al Performing Location [facility] [place] [address] [facility] [address] [facility] [address]
--- OUTSIDE RECORDS SUMMARY | 2023-11-30 22:16 | External Medical Summary | Summary of Care ---
Author Name Unknown Organization [facility] Address [address] [place] [address] Phone [phone] Care Team Providers Care Test Data Developer Name Role Phone Sammi Prieto MD Primary Care Provide r Reason for Visit * Reason Comments Re-Check Encounter Details Date Type Department Care Team (Late st Contact Info) Description 08/27/2023 10:20 AM EST Office Visit Family Medicine [address] [phone] Sammi Prieto MD [address] [place] [address] [place] [address] Type 2 diabetes mellitus with hemoglobin A1c goal of less than 7.0% ([facility])*; Dyslipidemia, goal LDL below 70; HTN, goal below 140/90; Type 2 diabetes mellitus with diabetic polyneuropathy, unspecified whether half-way insulin use ([facility]); Nonrheumatic aortic valve stenosis Allergies No known active allergiesdocumented as of this encounter (statuses as of 08/27/2023) Medications Medication Sig Dispensed Refills Start Date [...] THE MORNING 90 Tablet 3 03/18/2023 Active Sertraline HCl 50 MG Oral Tablet (Zoloft)Indicati ons:Anxiety TAKE 1 TABLET BY MOUTH EVERY DAY 90 Tablet 1 04/30/2023 Active Atorvastatin Calcium 40 MG Oral Tablet (Lipitor)Indicat ions:Dyslipidemi a, goal LDL below 100 TAKE 1 TABLET BY MOUTH EVERY DAY 90 Tablet 1 04/30/2023 Active metFORMIN HCl ER 500 MG Oral Tablet Extended Release 24 Hour (Glucophage XR)Indications:T ype 2 diabetes mellitus with hemoglobin A1c goal of less than 7.0% ([facility]) Take 2 Tablets by mouth in the [...] 50 MCG/ACT Nasal Suspension (Flonase)Indicat ions:Post-nasal drip Administer 1 [place] into each nostril in the morning and 1 [place] in the evening. Do all this for 5 days. 18.2 mL 0 05/18/2023 4 Discontinued documented as of this encounter (statuses as of 08/27/2023) Active Problems Problem Noted Date Diagnosed Date [...] as of this encounter (statuses as of 08/27/2023) Resolved Problems Problem Noted Date Diagnosed Date Resolved Date Morbid obesity due to excess calories 12/04/2019 10/21/2020 Sprain of posterior cruciate ligament of left knee 01/22/2014 01/22/2014 HTN, goal below 140/80 02/19/201209/15 Overview: Per HTN Protocol #27. HTN, goal below 130/80 06/23/200902/21 Mixed dyslipidemia 02/08/2009 Overview: Per Lipid Taxonomy. DM type 2, not at goal 11/06/200804/15 Overview: Modified per Diabetes protocol #14. DM type 2, not at goal 07/31/200809/04 HTN, goal to be determined 07/31/2008 1 07/25/2008 Overview: Modified per HTN protocol #16. Sebaceous cyst 11/18/2002 01/25/2011 documented as of this encounter (statuses as of 08/27/2023) Immunizations Name Administration Dates Next Due COVID-19 [...] Sign Reading Time Taken Comments Blood Pressure 128/78 08/27/2023 10:27 AM EST Pulse 61 08/27/2023 10:27 AM EST Temperature 36.5 C (97.7 F) 08/27/2023 1 0:27 AM EST Respiratory Rate - - Oxygen Saturation 97% 08/27/2023 10: 27 AM EST Inhaled Oxygen Concentration - - Weight 102.8 kg (226 lb 9.6 oz) 024 10:27 AM EST Height - - Body Mass Index 30.73 01/12/2023 12:26 PM EDT documented in this encounter Progress Notes * Sammi Prieto MD - 08/27/2023 10:43 AM EST Subjective: HPI: Nav Kay is a 78 year old male with hx of DMII, HLD, HTN, PFO, B/L Carotid stenosis s/p L CEA (2019), CVA with decreased vision (2019), Depression, anxiety, insomnia, Hx of R retinal detachment, mild cognitive impairment, mild aortic valve stenosis seen for Pt has no concerns Denied any recent fall Denied any CP or SOB or Syncope Denied any constipation Has been complaint with meds Anxiety and Insomnia has been stable Patient Active Problem List Diagnosis Code Overweight E66.3 Esophageal reflux K21.9 Dyslipidemia, goal LDL below 70 E78.5 Impotence of organic origin N52.9 OBESITY, BMI 30-34 (SEE ACTUAL BMI) E66.9 Type 2 diabetes mellitus with hemoglobin A1c goal of less than 7.0% ([facility]) E11.9 Carpal tunnel syndrome G56.00 Contracture of joint of hand M24.549 Degeneration of lumbosacral intervertebral disc M51.37 Type II diabetes mellitus with neurological manifestations ([facility]) E11.49 Diabetic sensorimotor neuropathy ([facility]) E11.42 Spinal stenosis, lumbar region, with neurogenic claudication M48.062 PVD (peripheral vascular disease) ([facility]) I73.9 Constipation, slow transit K59.01 Thoracic degenerative disc disease M51.34 Tear of posterior cruciate ligament of knee S83.529A Nocturnal leg cramps G47.62 Persistent insomnia G47.00 Carotid artery stenosis I65.29 HTN, goal below 140/90 I10 Vitamin D insufficiency E55.9 History of stroke Z86.73 Dysarthria, 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 Visual field loss, post-stroke I69.398, H54.7 Current mild episode of major depressive disorder without prior episode ([facility]) F32.0 Memory loss R41.3 Anxiety F41.9 Lightheaded R42 Interatrial septal aneurysm with PFO Q21.12, I25.3 Chronic midline thoracic back pain M54.6, G89.29 Dupuytren's contracture of left hand M72.0 Diabetic polyneuropathy ([facility]) E11.42 Nonrheumatic aortic valve stenosis I35.0 Current Outpatient Medications Medication Sig Dispense Refill [...] DAY IN THE MORNING 90 Tablet 3 Sertraline HCl 50 MG Oral Tablet (Zoloft) TAKE 1 TABLET BY MOUTH EVERY DAY 90 Tablet 1 Atorvastatin Calcium 40 MG Oral Tablet (Lipitor) TAKE 1 TABLET BY MOUTH EVERY DAY 90 Tablet 1 metFORMIN HCl ER 500 MG Oral Tablet Extended Release 24 Hour (Glucophage XR) Take 2 Tablets by mouth in the morning. 180 Tablet 1 glipiZIDE ER 10 MG Oral Tablet Extended Release 24 Hour (Glucotrol XL) TAKE 1 TABLET BY MOUTH EVERYDAY 90 Tablet 1 Lisinopril-hydroCHLOROthiazide 20-12.5 MG Oral Tablet TAKE 1 TABLET BY MOUTH EVERY DAY 90 Tablet 1 Clopidogrel Bisulfate 75 MG Oral Tablet (pLAVix) TAKE 1 TABLET BY MOUTH EVERY DAY 90 Tablet 1 Pantoprazole Sodium 40 MG Oral Tablet Delayed Release (Protonix) TAKE 1 TAB BY MOUTH DAILY 30 MINUTES BEFORE THE FIRST MEAL OF THE DAY FOR HEARTBURN 90 Tablet 3 No current facility-administered medications for this visit. Facility-Administered Medications Ordered in Other Visits Medication Dose Route Frequency Provider Last Rate Last Admin ondansetron (ZOFRAN) inj Once PRN Leticia Lafleur, CHRONOGRAPH OPERATOR 4 mg at 12/08/15 1109 Past Medical [...] Persistent insomnia 07/07/2014 PVD (peripheral vascular disease) ([facility]) 06/20/2012 Retinal detachment 1997 Rt side s/p surgery Retinal detachment with [...] performed by Shmuel Levine MD at ENDOSCOPY [facility] COLONOSCOPY, DIAGNOSTIC (RECTUM) 12/08/2015 diverticulosis, repeat 5 yrs/COLONOSCOPY FLEXIBLE PROXIMAL DIAGNOSTIC performed by Shmuel Levine MD at ENDOSCOPY [facility] COLONOSCOPY, DIAGNOSTIC (RECTUM) 03/10/2021 Diverticulosis in sigmoid and descending, 9-2 to 7 mm in descending, transverse, ascending & cecum / biopsies benign adenomatous polyps / 1 year follow up / COLONOSCOPY FLEXIBLE PROXIMAL DIAGNOSTIC performed by Shmuel Levine MD at ENDOSCOPY [facility] COLONOSCOPY, DIAGNOSTIC (RECTUM) 01/17/2023 diverticulosis/hemorrhoids/biopsies show adenomatous polyps/recall 3 years/COLONOSCOPY FLEXIBLE PROXIMAL DIAGNOSTIC performed by Shmuel Levine MD at ENDOSCOPY [facility] EGD, FLEXIBLE, DIAGNOSTIC 02/08/2014 EGD, FLEXIBLE, DIAGNOSTIC 02/06/2014 mild gastritis/ESOPHAGOGASTRODUODENOSCOPY (EGD), FLEXIBLE, TRANSORAL, DIAGNOSTIC performed by Ramez Palomino DO at ENDOSCOPY [facility] HEMORRHOIDECTOMY,EXTERNAL, 2 + COLUMNS Hemorrhoidectomy,External LASER TRABECULOPLASTY 12/07/2011 right eye - high pressures- Dr Luna REMOVAL OF TONSILS, UNDER AGE 13 REMOVE CATARACT, INSERT LENS PROSTH Cataract Removal w/ IOL - x 2 Review of patient's allergies indicates: No Known Allergies Family History Problem Relation Age of Onset Other (Other) Mother Alzhemers Hypertension Father Social History Tobacco Use Smoking status: Former Types: Cigars Smokeless tobacco: Never Substance Use Topics Alcohol use: Yes Alcohol/week: 2.0 standard drinks of alcohol Types: 2 12 oz of beer per week Comment: a beer or two every couple of weeks Vaping/E-Cigarette Use Vaping/E-Cigarette Use Never User Vaping/E-Cigarette Substances Vaping/E-Cigarette Devices ROS: -Per HPI OBJECTIVE: BP 128/78 | Pulse 61 | Temp 36.5 C (97.7 F) | Wt 102.8 kg (226 lb 9.6 oz) | SpO2 97% | BMI 30.73 kg/m | BSA 2.29 m PHYSICAL EXAM: Vitals are reviewed General:. NAD, well developed HEENT:. Normal Conjunctiva, EOMI Cardiac:.systolic murmur, Normal S1, S2 Lungs:. CTA, no wheezing or crackles MSK:. Normal gait ASSESSMENT/PLAN: Type 2 diabetes mellitus with hemoglobin A1c goal of less than 7.0% (HCC) (Primary) - HEMOGLOBIN A1C Dyslipidemia, goal LDL below 70 - Lipid panel today HTN, goal below 140/90 - BP wnl - continue lisinopril-HCTZ 20-12.5mg daily and amlodipine 10mg daily Type 2 diabetes mellitus with diabetic polyneuropathy, unspecified whether half-way insulin use (HCC) - A1C today Nonrheumatic aortic valve stenosis - will do echo every 2 years Follow Up: Return in about 6 months (around 02/25/2024). Sammi Prieto MD Family medicine, [address] [address] documented in this encounter Nursing Notes * Lili Lake CMA - 08/27/2023 10:23 AM EST He is here for a recheck today. He read a newspaper article about ocular stroke and he wants to discuss this with him. He wants youto look at the article he brought with him because he thinks he had an one. He did have a stroke 2-3 years ago. documented in this encounter Plan of Treatment Upcoming Encounters Date Type Department Care Team (Late st Contact Info) Description 11/29/2023 11:00 AM EDT Office Visit Cardiology [address] [place] [address] Flaca Huertas PA-C [address] [place] [address] 02/28/2024 10:40 AM EDT Office Visit Family Medicine [address] [place] [phone] Sammi Prieto MD [address] [place] [address] [place] [address] Pending Results Name Type Priority Associated Diagnoses Date /Time HEMOGLOBIN A1C Lab Routine Type 2 diabetes mellitus with hemoglobin A1c goal of less than 7.0% ([facility]) 08/27/2023 10:57 AM EST Scheduled Procedures Name Priority Associated Diagnoses Date/Ti [...] 05/18/2022, 0 10/21/2020, 01/08/2020, Additional history exists HbA1c 09/04/2023 03/06/2023, 10/30, 05/18/2022, Additional history exists Albumin/Creatinine Ratio 01/24/2024 023, 05/18/2022, 07/29/2021, Additional history exists GFR 03/06/2024 03/06/2023, 0710/2022, 11/15/2022, Additional history exists Diabetic Eye Exam 05/14/2024 05/14/2023, , 04/04/2021, Additional history exists Depression Screening 05/18/2024 05/18/2023 COLONOSCOPY-EVERY 3 YRS AGES 18-100 01/17/2026 01/17/2023, 01/17/2023, 03/10/2021, Additional history exists DTaP,Tdap,and Td Vaccines (4 - Td or Tdap) 10/21/2030 10/21/2020 (Not indicated), 07/02/2004, 07/02/2004 COLONOSCOPY-ANNUAL AGES 18-100 Discontinued 01/17/2023, 01/17/2023, 03/10/2021, Additional history exists COLONOSCOPY-EVERY 5 YRS AGES 18-100 Discontinued 01/17/2023, [...] as of this encounter Visit Diagnoses Diagnosis Type 2 diabetes mellitus with hemoglobin A1c goal of less than 7.0% (HCC)- Primary Dyslipidemia, goal LDL below 70 Other and unspecified hyperlipidemia HTN, goal below 140/90 Unspecified essential hypertension Type 2 diabetes mellitus with diabetic polyneuropathy, unspecified whether half-way insulin use (HCC) Nonrheumatic aortic valve stenosis Aortic valve disorders documented in this encounter Care Teams Test Data Developer Relationship Specialty Start Date End Date Sammi Prieto MD [address] [place] [address] [place] [id number] PCP - General Family Medicine 05/06/21 documented as of this encounter"
--- OUTSIDE RECORDS SUMMARY | 2023-11-30 22:16 | External Medical Summary ---
Author Name Unknown Address Unknown Organization [id number]:[facility] [place] [address] [facility] [address] Laboratory Report Ordering Provider Test Date Status HANG MOORE 08/27/2023 10:57:28 Final Observation Date Value Abnormality Reference (Units ) Status Triglyceride 08/27/2023 10:57:28 120 <=174 ( mg/dL) Final Triglyceride Reference Range s (mg/dL):
<150 Acceptable
150-174 Borderline high
175-499 High
>=500 Very high Cholesterol 08/27/2023 10:57:28 110 <200 (mg /dL) Final Total Cholesterol Reference Ranges (mg/dL):
<200 Desirable
200-239 Borderline high
>=240 High HDL 08/27/2023 10:57:28 37 Below low normal >39 (mg/dL) Final HDL Cholesterol Reference Ra nges (mg/dL):
>=60 High (Desirable)
<50 Low (Undesirable) For Females
<40 Low (Undesirable) For Males NON-HDL CHOLESTEROL 08/27/2023 10:57:28 73 <=159 (mg/dL) Final Non-HDL Cholesterol Referenc e Range (mg/dL):
<100 Target level for high risk ASCVD patient
<130 Optimal for general population
130-159 Near optimal for general population
160-189 Borderline High
190-219 High
>=220 Very High LDL, (calculated) 08/27/2023 10:57:28 49 <= 129 (mg/dL) Final LDL Cholesterol Reference Ra nges (mg/dL):
<70 Target level for high risk ASCVD patient
<100 Optimal for general population
100-129 Near optimal for general population
130-159 Borderline high
160-189 High
>=190 Very high Performing Location [facility] [place] [address] [facility] [address]
--- OUTSIDE RECORDS SUMMARY | 2023-11-30 22:16 | External Medical Summary | Summary of Care ---
Author Name Unknown Organization [facility] Address [address] [facility] [place] [address] Phone [phone] Care Team Providers Care Turn Supervisor Name Role Phone Sammi Prieto MD Primary Care Provide r Reason for Visit * Reason Onset Date Comments Pain 06/26/2023 Head and neck pa in-see nurse triage encounter from 06/21/2023 Encounter Details Date Type Department Care Team (Late st Contact Info) Description 06/26/2023 Telephone Family Medicine [address] [phone] Sammi Prieto MD [address] [place] [address] [place] [address] Pain (Head and neck pain-see nurse triage ... Allergies No known active allergiesdocumented as of this encounter (statuses as of 06/26/2023) Medications Medication Sig Dispensed Refills Start Date End Date Status ATIFSTYLE JOVANI DEVIIndications:DM type 2, goal A1c below 7 [...] EVERY DAY 90 Tablet 1 05/20/2023 Active Lisinopril-hydroCHL OROthiazide 20-12.5 MG Oral Tablet [...] FOR HEARTBURN 90 Tablet 3 06/15/2023 Active documented as of this encounter (statuses as of 06/26/2023) Active Problems Problem Noted Date Diagnosed Date [...] as of this encounter (statuses as of 06/26/2023) Resolved Problems Problem Noted Date Diagnosed Date [...] as of this encounter (statuses as of 06/26/2023) Immunizations Name Administration Dates Next Due COVID-19 [...] Years Used Date Smoking Tobacco: Former Cigars Q uit: 10/30/1989 Smokeless Tobacco: Never Alcohol Use Standard Drinks/Week [...] encounter Miscellaneous Notes * Telephone Encounter - Lili Lake CMA - 06/26/2023 1:19 PM EST I called Nav to check on him per the nurse triage encounter from 06/21/2023 and he is fine now. The neck and head pain resolved with heat and tylenol. I did confirm he had no head injury or other trauma. He stated he think she just slept on it wrong the night before and the pain only last that day. documented in this encounter Plan of Treatment Upcoming Encounters Date Type Department Care Team (Late st Contact Info) Description 08/20/2023 8:20 AM EST Office Visit Family Medicine [address] [place] [phone] Sammi Prieto MD [address] [place] [address] [place] [address] 11/29/2023 11:00 AM EDT Office Visit Cardiology [address] [place] [address] Flaca Huertas PA-C [address] [place] [address] Scheduled Procedures Name Priority Associated Diagnoses Date/Ti me COLONOSCOPY FLEXIBLE PROXIMA L DIAGNOSTIC Recall History of colonic polyps Health Maintenance Due Date Last Done Comments Hepatitis C Screening 1963 Hepatitis B (1 of 3 - Risk 3-dose series) 2006 Pneumococcal Vaccine: 65+ Years (3 - PPSV23 or PCV20) 03/12/2020 03/12/2019, 08/07/2008 Zoster Vaccines (3 of 3) 12/09/2020 10/14/2020, 01/30 COVID-19 Vaccine (3 - 2022- season) 2023 09/10/2020, 07/04/2020 Diabetic Foot Exam 05/18/2023 05/18/2022, 0 10/21/2020, 01/08/2020, Additional history exists HbA1c 09/04/2023 03/06/2023, 10/30, 05/18/2022, Additional history exists Albumin/Creatinine Ratio 01/24/2024 023, 05/18/2022, 07/29/2021, Additional history exists GFR 03/06/2024 03/06/2023, 12/31, [...] filedocumented as of this encounter Care Teams Turn Supervisor Relationship Specialty Start Date End Date Sammi Prieto MD [address] [place] [address] [place] [address] PCP - General Family Medicine 05/06/21 documented as of this encounter
--- OUTSIDE RECORDS SUMMARY | 2023-11-30 22:16 | External Medical Summary ---
Author Name Unknown Address Unknown Organization [id number]:[facility] [place] - [address] [place] [address] Laboratory Report Ordering Provider Test Date Status BRANDI SANCHEZ 08/27/2023 10:57:28 Final Observation Date Value Abnormality Reference (Units ) Status MYCODE SPECIMEN-SST 08/27/2023 10:57:28 Freezing of extracted DNA, whole blood and/or serum. Final Performing Location [facility] [place] - [address] [place] [address]
--- OUTSIDE RECORDS SUMMARY | 2023-11-30 22:16 | External Medical Summary | Summary of Care ---
Author Name Unknown Organization [facility] Address [address] [facility] [place] [address] Phone [phone] Care Team Providers Care Carpet Technician Name Role Phone Sammi Prieto MD Primary Care Provide r Reason for Visit * Reason Onset Date Comments Test Results 09/06/2023 Encounter Details Date Type Department Care Team (Late st Contact Info) Description 09/06/2023 Telephone Cardiology, [facility] [address] [place] [address] Flaca Huertas PA-C [address] [place] [address] Test Results Allergies No known active allergiesdocumented as of this encounter (statuses as of 09/06/2023) Medications Medication Sig Dispensed Refills Start Date [...] 5 DAYS 16 mL 1 08/27/2023 Active documented as of this encounter (statuses as of 09/06/2023) Active Problems Problem Noted Date Diagnosed Date [...] as of this encounter (statuses as of 09/06/2023) Resolved Problems Problem Noted Date Diagnosed Date [...] as of this encounter (statuses as of 09/06/2023) Immunizations Name Administration Dates Next Due COVID-19 [...] encounter Miscellaneous Notes * Telephone Encounter - uPma Pyle LPN - 09/06/2023 1:36 PM EST Sent patient a letter and a [employer] message to make aware. ----- Message from Flaca Huertas PA-C sent at 09/05/2023 4:38 PM EST ----- Cholesterol well controlled Continue atorvastatin documented in this encounter Plan of Treatment Upcoming Encounters Date Type Department Care Team (Late st Contact Info) Description 11/29/2023 11:00 AM EDT Office Visit Cardiology [address] [place] [address] Flaca Huertas PA-C [address] [place] [address] 02/28/2024 10:40 AM EDT Office Visit Family Medicine [address] [place] [phone] Sammi Prieto MD [address] [place] [address] [place] [address] Scheduled Procedures Name Priority Associated Diagnoses Date/Ti [...] 11/15/2022, Additional history exists GFR 03/06/2024 03/06/2023, 072 10/2022, 11/15/2022, Additional history exists Diabetic Eye [...] filedocumented as of this encounter Care Teams Carpet Technician Relationship Specialty Start Date End Date Sammi Prieto MD [address] [place] [address] [place] [address] PCP - General Family Medicine 05/06/21 documented as of this encounter
--- OUTSIDE RECORDS SUMMARY | 2023-11-30 22:16 | External Medical Summary ---
Author Name Unknown Address Unknown Organization [id number]:[facility] [place] [address] [place] [address] Laboratory Report Ordering Provider Test Date Status BRANDI SANCHEZ 08/27/2023 10:57:28 Final Observation Date Value Abnormality Reference (Units ) Status MYCODE SPECIMEN-SST 08/27/2023 10:57:28 Freezing of extracted DNA, whole blood and/or serum. Final Performing Location [facility] [place] [address] [place] [address]
--- OUTSIDE RECORDS SUMMARY | 2023-11-30 22:16 | External Medical Summary | Summary of Care ---
Author Name Unknown Organization [facility] Address [address] [place] [address] Phone [phone] Care Team Providers Care Computer Science Instructor Name Role Phone Sammi Prieto MD Primary Care Provide r Reason for Visit * Reason Comments eRx-Medication Refill Encounter Details Date Type Department Care Team (Late st Contact Info) Description 08/26/2023 Refill Family Medicine [address] [phone] Sammi Prieto MD [address] [place] [address] [place] [address] Post-nasal drip Allergies No known active allergiesdocumented as of [...] hemoglobin A1c goal of less than 7.0% ([facility]) Take 2 Tablets by mouth in the [...] 5 DAYS 16 mL 1 08/27/2023 Active Fluticasone Propionate 50 MCG/ACT Nasal Suspension (Flonase)Indicat ions:Post-nasal drip Administer 1 [place] into each nostril in the morning and 1 [place] in the evening. Do all this for [...] encounter Miscellaneous Notes * Telephone Encounter - Tacho Gaxiola [facility] - 08/27/2023 11:18 AM ESTSigned Prescriptions: Disp Refills Fluticasone Propionate 50 MCG/ACT Nasal Cheema*16 mL 1 Sig: ADMINISTER 1 SPRAY INTO EACH NOSTRIL IN THE MORNING AND 1 SPRAY IN THE EVENING FOR 5 DAYSAuthorizing Provider: Brianna PRIETO User: TACHO GAXIOLA documented in this encounter Plan of Treatment Upcoming Encounters Date Type Department Care Team (Late st Contact Info) Description 11/29/2023 11:00 AM EDT Office Visit Cardiology [address] [place] [address] Flaca Huertas PA-C [address] [place] [address] 02/28/2024 10:40 AM EDT Office Visit Family Medicine [address] [place] [phone] Sammi Prieto MD [address] [place] [address] [place] [address] Scheduled Procedures Name Priority Associated Diagnoses Date/Ti [...] as of this encounter Visit Diagnoses Diagnosis Post-nasal drip Postnasal drip documented in this encounter Care Teams Computer Science Instructor Relationship Specialty Start Date End Date Sammi Prieto MD [address] [place] [address] [place] [address] PCP - General Family Medicine 05/06/21 documented as of this encounter
--- OUTSIDE RECORDS SUMMARY | 2023-11-30 22:16 | External Medical Summary | Summary of Care ---
Author Name Unknown Organization [facility] Address [address] [facility] [place] [address] Phone [phone] Care Team Providers Care Carburizing Furnace Operator Name Role Phone Sammi Prieto MD Primary Care Provide r Reason for Visit * Reason Comments Outpatient Testing Encounter Details Date Type Department Care Team (Late st Contact Info) Description 08/27/2023 11:10 AM EST Laboratory Laboratory [address] [place] [phone] [place] [address] Bilateral carotid artery stenosis; Dyslipidemia, goal LDL below 70; HTN, goal below 140/90; Nonrheumatic aortic valve stenosis; MyCode Research Other*[id number] Allergies No known active allergiesdocumented as of [...] 11/29/2023 11:00 AM EDT Office Visit Cardiology [address] [place] [address] Flaca Huertas PA-C [address] [place] [address] 02/28/2024 10:40 AM EDT Office Visit Family Medicine [address] [place] [phone] Sammi Prieto MD [address] [place] [address] [place] [address] Pending Results Name Type Priority Associated Diagnoses Date /Time LIPID PANEL WITH DIRECT LDL IF TG IS HIGH Lab Routine Bilateral carotid artery stenosis Dyslipidemia, goal LDL below 70 HTN, goal below 140/90 Nonrheumatic aortic valve stenosis 08/27/2023 10:57 AM EST MYCODE SUBSEQUENT ADULT Lab Routine [employer] Research Other*[id number] 08/27/2023 10:57 AM EST MYCODE SST1 Lab Routine [employer] Research Other*[id number] 08/27/2023 10:57 AM EST MYCODE SST2 Lab Routine [employer] Other*[id number] 08/27/2023 10:57 AM EST Scheduled Procedures Name [...] as of this encounter Visit Diagnoses Diagnosis Bilateral carotid artery stenosis Occlusion and stenosis of multiple and bilateral precerebral arteries without mention of cerebral infarction Dyslipidemia, goal LDL below 70 Other and unspecified hyperlipidemia HTN, goal below 140/90 Unspecified essential hypertension Nonrheumatic aortic valve stenosis Aortic valve disorders [employer] Research Other*[id number] documented in this encounter Care Teams Carburizing Furnace Operator Relationship Specialty Start Date End Date Sammi Prieto MD [address] [place] [address] [place] [address] PCP - General Family Medicine 05/06/21 documented as of this encounter
--- OUTSIDE RECORDS SUMMARY | 2023-11-30 22:17 | External Medical Summary | Summary of Care ---
Author Name Unknown Organization [facility] Address [address] [facility] [place] [address] Phone [phone] Care Team Providers Care Product Development Consultant Name Role Phone Sammi Prieto MD Primary Care Provide r Reason for Visit * Reason Onset Date Comments Test Results 06/08/2023 Encounter Details Date Type Department Care Team (Late st Contact Info) Description 06/08/2023 Telephone Cardiology, [facility] [address] [place] [address] Flaca Huertas PA-C [address] [place] [address] Test Results Allergies No known active allergiesdocumented as of this encounter (statuses as of 06/08/2023) Medications Medication Sig Dispensed Refills Start Date [...] day DxE11.9 100 Strip 5 10/07/2021 Active Pantoprazole Sodium 40 MG Oral Tablet Delayed Release (Protonix)Indicatio ns:Gastroesophageal reflux disease TAKE 1 TAB BY MOUTH DAILY 30 MINUTES BEFORE THE FIRST MEAL OF THE DAY FOR HEARTBURN 90 Tablet 3 06/17/2022 Active Sildenafil Citrate 100 MG Oral TabletIndications:E [...] EVERY DAY 90 Tablet 1 05/20/2023 Active documented as of this encounter (statuses as of 06/08/2023) Active Problems Problem Noted Date Diagnosed Date [...] as of this encounter (statuses as of 06/08/2023) Resolved Problems Problem Noted Date Diagnosed Date [...] as of this encounter (statuses as of 06/08/2023) Immunizations Name Administration Dates Next Due COVID-19 [...] encounter Miscellaneous Notes * Telephone Encounter - Bina Rose CMA - 06/08/2023 2:22 PM EST Results letter mailed. * Telephone Encounter - Bina Rose CMA - 06/08/2023 2:18 PM EST ----- Message from Flaca Huertas PA-C sent at 06/06/2023 4:47 PM EST ----- No significant carotid stenosis noted. < 50% bilaterally. Continue Aspirin and atorvastatin No changes at this time. documented in this encounter Plan of Treatment Upcoming Encounters Date Type Department Care Team (Late st Contact Info) Description 08/20/2023 8:20 AM EST Office Visit Family Medicine [address] [place] [phone] Sammi Prieto MD [address] [place] [address] [place] [address] 11/29/2023 11:00 AM EDT Office Visit Cardiology [address] [place] [address] Flaca Huertas PA-C [address] [place] [address] Scheduled Procedures Name Priority Associated Diagnoses Date/Ti [...] filedocumented as of this encounter Care Teams Product Development Consultant Relationship Specialty Start Date End Date Sammi Prieto MD [address] [place] [address] [place] [phone] PCP - General Family Medicine 05/06/21 documented as of this encounter
--- OUTSIDE RECORDS SUMMARY | 2023-11-30 22:17 | External Medical Summary | Summary of Care ---
Author Name Unknown Organization [facility] Address [address] [facility] [place] [address] Phone [phone] Care Team Providers Care Oil Field Operator Name Role Phone Sammi Prieto MD Primary Care Provide r Reason for Visit * Reason Onset Date Comments Medication Refill 06/13/2023 Encounter Details Date Type Department Care Team (Late st Contact Info) Description 06/13/2023 Refill Family Medicine [address] [place] [phone] Sammi Prieto MD [address] [place] [address] [place] [address] Post-nasal drip Allergies No known active allergiesdocumented as of this encounter (statuses as of 06/16/2023) Medications Medication Sig Dispensed Refills Start Date [...] DAY FOR HEARTBURN 90 Tablet 3 06/17/2022 3 Discontinued documented as of this encounter (statuses as of 06/16/2023) Active Problems Problem Noted Date Diagnosed Date [...] as of this encounter (statuses as of 06/16/2023) Resolved Problems Problem Noted Date Diagnosed Date [...] as of this encounter (statuses as of 06/16/2023) Immunizations Name Administration Dates Next Due COVID-19 [...] encounter Miscellaneous Notes * Telephone Encounter - Niraj Hameed LPN - 06/13/2023 8:36 AM EST Does not need refilled Only was to use for 5 days for post nasal drip * Telephone Encounter - Niraj Hameed LPN - 06/13/2023 8:36 AM ESTRefused Prescriptions: Disp Refills Fluticasone Propionate 50 MCG/ACT Nasal Cheema*18.2 mL0 Sig: Administer 1 [place] into each nostril in the morning and 1 [place] in the evening. Refused By: NIRAJ HAMEED Reason for Refusal: Course of treatment complete * Telephone Encounter - Niraj Hameed LPN - 06/13/2023 8:35 AM EST Contacted patient and he is not using Flonase any longer and does not need it refilled * Telephone Encounter - Blanquita Lamb, CHITO - 06/13/2023 8:01 AM EST Did you pend patient's preferred pharmacy and medication before forwarding?yes Pharmacy: [id number] Pending Prescriptions: Disp Refills Fluticasone Propionate 50 MCG/ACT Nasal S*18.2 mL0 Sig: Administer 1 [place] into each nostril in the morning and 1 [place] in the evening. Last Visit: 05/18/2023 (in office), Visit date not found (telemedicine) Next Visit: 08/20/2023 If no future appointments scheduled, and last appointment is greater than a year ago, please schedule patient for a follow-up appointment Last date the medication was ordered: 05.18.23 Is this request for a controlled substance?No Urine Drug Screen:No results found for this or any previous visit. Patient Phone Numbers Labs: Lab Results Component Value Date/Time CREAT 1.2 03/06/2023 01:41 PM CREAT 1.1 01/23/2023 12:00 AM CREAT 1.1 12/04/2019 05:02 PM POTASSIUM 4.3 03/06/2023 01:41 PM POTASSIUM 4.7 12/04/2019 05:02 PM TSH 3.12 03/06/2023 01:41 PM TSH 1.48 01/09/2020 08:39 AM LDLCALC 43 07/29/2021 11:53 AM LDLCALC 43 03/13/2019 07:48 AM LDLDIRECT 38 05/15/2022 02:24 PM LDLDIRECT NOT APPLICABLE 03/13/2019 07:48 AM LDLDIRECT 91 05/20/2010 01:20 PM ALT 19 03/06/2023 01:41 PM ALT 28 09/09/2019 08:35 AM HGBA1C 7.3 (H) 03/06/2023 01:41 PM HGBA1C 7.0 (H) 09/11/2019 09:02 AM documented in this encounter Plan of Treatment Upcoming Encounters Date Type Department Care Team (Late st Contact Info) Description 08/20/2023 8:20 AM EST Office Visit Family Medicine [address] [place] [phone] Sammi Prieto MD [address] [place] [address] [place] [address] 11/29/2023 11:00 AM EDT Office Visit Cardiology [address] [place] [address] Flaca Huertas PA-C [address] [place] [address] Scheduled Procedures Name Priority Associated Diagnoses Date/Ti [...] drip documented in this encounter Care Teams Oil Field Operator Relationship Specialty Start Date End Date Sammi Prieto MD [address] [place] [address] [place] [address] PCP - General Family Medicine 05/06/21 documented as of this encounter
--- OUTSIDE RECORDS SUMMARY | 2023-11-30 22:17 | External Medical Summary | Summary of Care ---
Author Name Unknown Organization [facility] Address [address] [place] [address] Phone [phone] Care Team Providers Care Signal Worker Helper Name Role Phone Sammi Prieto MD Primary Care Provide r Encounter Details Date Type Department Care Team (Late st Contact Info) Description 06/18/2023 Orders Only Outcomes Research Department [address] [place], [place] [phone] Myrtle Trammell CHRA [employer] Research Other*[id number] Allergies No known active allergiesdocumented as of this encounter (statuses as of 06/18/2023) Medications Medication Sig Dispensed Refills Start Date [...] as of this encounter (statuses as of 06/18/2023) Active Problems Problem Noted Date Diagnosed Date [...] as of this encounter (statuses as of 06/18/2023) Resolved Problems Problem Noted Date Diagnosed Date [...] as of this encounter (statuses as of 06/18/2023) Immunizations Name Administration Dates Next Due COVID-19 [...] 8:20 AM EST Office Visit Family Medicine [address] [place] [phone] Sammi Prieto MD [address] [place] [address] [place] [address] 11/29/2023 11:00 AM EDT Office Visit Cardiology [address] [place] [address] Flaca Huertas PA-C [address] [place] [address] Scheduled Orders Name Type Priority Associated Diagnoses Orde r Schedule MYCODE SUBSEQUENT ADULT Lab Routine MyCode Research Other*[id number] Every 6 Months for 2 Occurrences starting 06/18/2023 until 07/07/2024 Scheduled Procedures Name Priority Associated Diagnoses Date/Ti [...] as of this encounter Visit Diagnoses Diagnosis MyCode Research Other*[id number] documented in this encounter Care Teams Signal Worker Helper Relationship Specialty Start Date End Date Sammi Prieto MD [address] [place] [address] [place] [address] PCP - General Family Medicine 05/06/21 documented as of this encounter
--- OUTSIDE RECORDS SUMMARY | 2023-11-30 22:17 | External Medical Summary | Summary of Care ---
Author Name Unknown Organization [facility] Address [address] [facility] [place] [place] [address] Phone [phone] Care Team Providers Care Polarity Tester Name Role Phone Sammi Prieto MD Primary Care Provide r Reason for Visit * Reason Comments eRx-Medication Refill Encounter Details Date Type Department Care Team (Late st Contact Info) Description 06/15/2023 Refill Family Medicine [address] [phone] Sammi Prieto MD [address] [place] [address] [place] [address] Gastroesophageal reflux disease Allergies No known active allergiesdocumented as of this encounter (statuses as of 06/15/2023) Medications Medication Sig Dispensed Refills Start Date [...] A1c goal of less than 7.0% ([facility]) Take 2 Tablets by mouth in the [...] FOR HEARTBURN 90 Tablet 3 06/15/2023 Active Pantoprazole Sodium 40 MG Oral Tablet Delayed Release (Protonix)Indica tions:Gastroesop hageal reflux disease TAKE 1 TAB BY MOUTH DAILY 30 MINUTES BEFORE THE FIRST MEAL OF THE DAY FOR HEARTBURN 90 Tablet 3 06/17/2022 3 Discontinued documented as of this encounter (statuses as of 06/15/2023) Active Problems Problem Noted Date Diagnosed Date [...] as of this encounter (statuses as of 06/15/2023) Resolved Problems Problem Noted Date Diagnosed Date [...] as of this encounter (statuses as of 06/15/2023) Immunizations Name Administration Dates Next Due COVID-19 [...] encounter Miscellaneous Notes * Telephone Encounter - Dash King RPh - 06/15/2023 9:05 AM ESTSigned Prescriptions: Disp Refills Pantoprazole Sodium 40 MG Oral Tablet Citlalli*90 Tab*3 Sig: TAKE 1 TAB BY MOUTH DAILY 30 MINUTES BEFORE THE FIRST MEAL OF THE DAY FOR HEARTBURNAuthorizing Provider: Brianna PRIETO User: DASH KING documented in this encounter Plan of Treatment Upcoming Encounters Date Type Department Care Team (Late st Contact Info) Description 08/20/2023 8:20 AM EST Office Visit [address] [phone] Sammi Prieto MD [address] [place] [address] [place] [phone] 11/29/2023 11:00 AM EDT Office Visit Cardiology [address] [place] [address] Flaca Huertas, [place] [address] [place] [address] Scheduled Procedures Name Priority Associated Diagnoses Date/Ti [...] as of this encounter Visit Diagnoses Diagnosis Gastroesophageal reflux disease Esophageal reflux documented in this encounter Care Teams Polarity Tester Relationship Specialty Start Date End Date Sammi Prieto MD [address] [place] [address] [place] [address] PCP - General Family Medicine 05/06/21 documented as of this encounter
[2023-12-01 06:59] VITALS: RESP 16
[2023-12-01 09:11] LABS: Creatinine Clr Calc Pharmacy 66.6 ml/min; Est GFR (African American) 81.8 ml/min; Est GFR (Non-African American) 70.6 ml/min
[2023-12-01 14:41] VITALS: BP 101/63; PULSE 75; TEMP 97.5; O2SAT 99
--- NOTE | 2023-12-01 17:44 | Hospitalist Progress Note ---
Date of Service December 01, 2023 Assessment & Plan (1) Abscess of left hand: (2) Infection of left hand: (3) Contracture of joint of finger of left hand: (4) Diabetes type 2, controlled: (5) Hypertension: (6) Dyslipidemia: (7) Cerebrovascular disease: Plan This is a 78-year-old male who has a significant past medical history of T2DM, HTN, HLD, PFO, bilateral carotid stenosis status post left CEA in 2019, CVA with decreased vision in 2019, depression, anxiety, history of retinal detachment, mild cognitive impairment and mild aortic valve stenosis who presents to ED secondary to worsening infection of his left fifth digit. Infection of left fifth digit with abscess - status post I&D in ER- cultures pending. Blood cultures negative till date. Seen by orthopedics and did not recommend any further Interventions. Continue empiric antibiotics pending further culture results. Continue local wound care. Patient is afebrile , Hemodynamically stable and does not look sick or septic. T2DM- Last A1c in August was 7.6. Hold metformin and glipizide. continue L antus/Humalog And will adjust as indicated. HTN- Chronic, stable. Continue amlodipine, lisinopril and HCTZ History of CVA, Carotid artery stenosis status post left CEA in 2019- Continue ASA and Plavix Small PFO with intra-atrial shunt- Follows with cardiology DVT ppx: SCDS. Ambulating independently. Disposition: discharge home pending final culture results Time spent: approximately 35 minutes. Admission and Anticipated Discharge Date Admission Date: November 29, 2023 Subjective patient was seen and examined at bedside. He feels fine. Denies any ongoing issues. no fever, chills, chest pain. No nausea or vomiting. incident site clean without any Physical Exam Physical Exam: General: Lying comfortably in bed, not in distress, on room air HEENT: EOMI, DANIEL, MMM Chest: Clear breath sounds bilaterally, no wheezes or crackles CVS: Regular rate and rhythm, normal heart sounds, no murmur Abdomen: Soft, non tender, not distended, normal bowel sounds Neuro: Awake, alert, oriented, conversing well, non focal Extremities: No cyanosis, clubbing or edema Left hand I&D site clean, no pus could be expressed at bedside. Contracture of left fifth finger noted. Results & Data Results & Data Vital Signs (Past 12 Hours) Vital Signs Temp Pulse Resp BP Pulse Ox O2 Del Method 12/01/23 14:40 36.4 C L 75 16 101/63 99 Room Air 12/01/23 06:59 36.8 C 56 L 16 128/78 94 Room Air
[2023-12-01] MEDS ORDERED: AMPICILLIN/SULBACTAM SOD 3,000 MG in SODIUM CHLOR 0.9% MINI-B 100 ML IV SCH (18:00)
--- NOTE | 2023-12-01 18:17 | Discharge Summary ---
Date of Service December 01, 2023 Admission HPI Per Admitting Provider This is a 78-year-old male who has a significant past medical history of T2DM, HTN, HLD, PFO, bilateral carotid stenosis status post left CEA in 2019, CVA with decreased vision in 2019, depression, anxiety, history of retinal detachment, mild cognitive impairment and mild aortic valve stenosis who presents to ED secondary to worsening infection of his left fifth digit. Of significance patient was seen at PCP office on 11/20 due to pain in his left fifth digit. He has had a contracture to this left fifth digit for several years but just started causing pain. This has since progressed to increased redness and absc ess formation at the base of his left fifth finger. He was seen and evaluated by orthopedics on 11/27/2023. He was prescribed a course of oral Keflex but due to worsening presented to ED today. 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 He denies any trauma or puncture wounds. He denies any injury to hand. He has started antibiotic but over past 48hrs he has had significant increase in swelling with what appears to be abscess formation. He denies any f/c/s, chest pain, sob, n/v/d, abd pain, change in bowel or bladder. He otherwise feels well. Admission Exam Per Admitting Provider GENERAL APPEARANCE: AxOx4, generally well-appearing male, no acute distress. HEENT: NC, AT. MMM. EOMI, clear conjunctiva, oropharynx clear. NECK: Supple without lymphadenopathy. No stiffness or restricted ROM. HEART: Normal rate and regular rhythm, normal S1/S1, no m/r/g LUNGS: CTAB, moving air well. No crackles or wheezes are heard. ABDOMEN: Soft, nontender, nondistended with good bowel sounds heard. BACK: No CVAT, no obvious deformity. EXTREMITIES: Without cyanosis, clubbing or edema. left hand with gauze in place, contract 5th digit NEUROLOGICAL: Grossly nonfocal. Alert and oriented, moving all 4 extremities. CN not formally tested but appear grossly intact. Skin: Warm and dry without any rash Principal Diagnosis Left hand abscess Discharge Exam General: sitting comfortably in chair, not in distress, on room air HEENT: EOMI, DANIEL, MMM Chest: Clear breath sounds bilaterally, no wheezes or crackles CVS: Regular rate and rhythm, normal heart sounds, no murmur Abdomen: Soft, non tender, not distended, normal bowel sounds Neuro: Awake, alert, oriented, conversing well, non focal Extremities: No cyanosis, clubbing or edema Left hand I&D site clean with no further discharge. Contracture of left fifth finger noted. Discharge Data Allergies Allergy/AdvReac Type Severity Reaction Status Date / Time No Known Allergies Allergy Verified 11/29/23 16:07 Consultations 11/29/23 15:49 ED Decision to Admit Stat 11/29/23 16:20 Consult Orthopedic Surgery Routine Ordered Studies Laboratory Results WBC 8.77 K/ul (4.8-10.8) 11/30/23 05:25 RBC 4.86 M/uL (4.70-6.10) 11/30/23 05:25 Hgb 13.5 g/dl (14.0-18.0) L 11/30/23 05:25 Hct 40.0 % (42.0-52.0) L 11/30/23 05:25 MCV 82.3 fL (80.0-100.0) 11/30/23 05:25 MCH 27.8 pg (25.0-34.0) 11/30/23 05:25 MCHC 33.8 g/dL (32.0-36.0) 11/30/23 05:25 RDW Std Deviation 40.7 fL (36.4-46.3) 11/30/23 05:25 RDW Coeff of Zeina 13.7 % (11.5-14.5) 11/30/23 05:25 Plt Count 227 K/uL (130-400) 11/30/23 05:25 MPV 10.3 fL (9.4-12.4) 11/30/23 05:25 Immature Gran % (Auto) 0.3 % 11/30/23 05:25 Neut % (Auto) 67.7 % 11/30/23 05:25 Lymph % (Auto) 18.0 % 11/30/23 05:25 Craven % (Auto) 8.0 % 11/30/23 05:25 Eos % (Auto) 5.7 % 11/30/23 05:25 Baso % (Auto) 0.3 % 11/30/23 05:25 Neut # (Auto) 5.93 K/uL (1.40-6.50) 11/30/23 05:25 Lymph # (Auto) 1.58 K/uL (1.20-3.40) 11/30/23 05:25 Craven # (Auto) 0.70 K/uL (0.11-0.59) H 11/30/23 05:25 Eos # (Auto) 0.50 K/uL (0.00-0.50) 11/30/23 05:25 Baso # (Auto) 0.03 K/uL (0.00-0.20) 11/30/23 05:25 Immature Gran # (Auto) 0.03 K/uL (0.01-0.20) 11/30/23 05:25 ESR 19 mm/hr (0-20) 11/29/23 14:31 Sodium 136 mmol/L (136-145) 11/30/23 05:25 Potassium 4.3 mmol/L (3.5-5.1) 11/30/23 05:25 Chloride 106 mmol/L (98-107) 11/30/23 05:25 Carbon Dioxide 26 mmol/L (21-32) 11/30/23 05:25 Anion Gap 4 (3-11) 11/30/23 05:25 BUN 19 mg/dl (6-23) 11/30/23 05:25 Creatinine 1.02 mg/dl (0.6-1.4) 12/01/23 06:33 Est Cr Clr Drug Dosing 66.6 ml/min 12/01/23 06:33 Est GFR ( Amer) 81.8 ml/min 12/01/23 06:33 Est GFR (Non-Af Amer) 70.6 ml/min 12/01/23 06:33 BUN/Creatinine Ratio 17.0 (10-20) 11/30/23 05:25 Glucose 142 mg/dl (70-99(Fasting)) H 11/30/23 05:25 POC Glucose 103 mg/dl (70-99) H 12/01/23 16:24 Estimat Average Glucose 169 mg/dl 11/30/23 05:25 Hemoglobin A1c 7.5 % (4.5-5.6) H 11/30/23 05:25 Lactate 1.6 mmol/L (0.4-2.0) 05/30/24 14:31 Calcium 9.3 mg/dl (8.6-10.3) 11/30/23 05:25 Magnesium 1.7 mg/dl (1.7-2.4) 11/30/23 05:25 Total Bilirubin 0.6 mg/dl (0.2-1.0) 11/30/23 05:25 AST 12 U/L (13-39) L 11/30/23 05:25 ALT 13 U/L (7-52) 11/30/23 05:25 Alkaline Phosphatase 74 U/L (34-104) 11/30/23 05:25 C-Reactive Protein 0.52 mg/dl (0-0.5) H 11/29/23 14:31 Total Protein 6.3 gm/dl (6.0-8.3) 11/30/23 05:25 Albumin 3.8 gm/dl (3.4-5.0) 11/30/23 05:25 Globulin 2.5 gm/dl (2.5-4.0) 11/30/23 05:25 Albumin/Globulin Ratio 1.5 (0.9-2) 11/30/23 05:25 Procalcitonin 0.04 ng/ml (0-0.5) 11/29/23 14:31 Random Vancomycin 9.4 mcg/ml (10-20) L 11/30/23 05:25 Impressions Hand X-Ray 11/29/23 14:16 XR hand LT min 3V routine CLINICAL HISTORY: L 5th MCP joint area with infection COMPARISON: Left fifth finger radiographs July 29, 2016. FINDINGS: Chronic deformity of the left fifth finger. No fractures within the left hand are present. No areas of bony erosion are present. There is no soft tissue gas. A 3 mm subcutaneous metallic density of the medial left hand at the level of the mid metacarpals is unchanged since radiographs of July 29, 2016. There is an additional metallic foreign body within the second finger. 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 IMPRESSION: 1. No fractures within the left hand. No radiographic evidence for acute osteomyelitis. 2. Chronic deformity of the left fifth finger. 3. No change in a 3 mm metallic foreign body within the medial left hand since radiographs of July 29, 2016. Additional small metallic foreign body within the left second finger. ACT 112: Negative or not required by law. Electronically signed by: Bandar Troy M.D. 11/29/2023 3:25 PM Hospital Course (1) Abscess of left hand: (2) Infection of left hand: (3) Contracture of joint of finger of left hand: (4) Diabetes type 2, controlled: (5) Hypertension: (6) Dyslipidemia: (7) Cerebrovascular disease: Plan This is a 78-year-old male who has a significant past medical history of T2DM, HTN, HLD, PFO, bilateral carotid stenosis status post left CEA in 2019, CVA with decreased vision in 2019, depression, anxiety, history of retinal detachment, mild cognitive impairment and mild aortic valve stenosis who presents to ED secondary to worsening infection of his left fifth digit. he was on Keflex prior to admission. He underwent I&D in ED, cultures were sent which showed low count mixed probable oral microbiota. blood cultures were negative. Patient was on IV vancomycin/ceftriaxone in-house with improvement in his infection. He was afebrile and hemodynamically stable. he was seen by orthopedics who did not recommend any further interventions ordered and completing course of antibiotics and following up with [facility] hand team as outpatient. He is being discharged on Augmentin start doxycycline for 1 week course. Recommended local wound care. He will follow-up with his PCP in a week for further management. Patient is comfortable and stable for discharge home. He is anxious to go home. Infection of left fifth digit with abscess - status post I&D in ER- cultures with low count mixed probable oral microbiota. Blood cultures negative. Seen by orthopedics and did not recommend any further interventions. status post empiric IV antibiotics here and being changed to Doxy/Augmentin. Continue local wound care. follow-up PCP and [facility] hand team for further management. T2DM- Last A1c in August was 7.6. continue metformin and glipizide. HTN- Chronic, stable. Continue amlodipine, lisinopril and HCTZ History of CVA, Carotid artery stenosis status post left CEA in 2019- Continue ASA and Plavix Small PFO with intra-atrial shunt- Follows with cardiology Total Time Total Time Spent Total Time Spent (In Minutes): 35 Discharge Plan Discharge Items Patient Disposition: Home - Self-Care Reason For Visit: L INFECTED 5TH DIGIT Discharge Diagnosis: left hand abscess Condition on Discharge: Good Activity: Resume your previous activity Non-emergency contact: Primary Care Provider Call non-emergency contact if: you have any medication questions, your pain is concerning for you, you have a fever, your wound has increased redness and your wound has increased drainage Follow-up/Referrals: Sammi Prieto MD [Primary Care Provider] - Diet: Regular Addtl Attending Provider Instructions: Continue the antibiotics twice daily for a week. Follow with your family doctor in a week. If the wound is not completely healed, he might prescribe you little longer course. If the wound gets worse, call your family doctor immediately or come to the emergency. Continue probiotics while on the antibiotics. Continue local wound care. Pending Studies at Discharge: No Stand-Alone Forms: My [facility] [place], Smoking Cessation Medications and DC Order Prescriptions: New amoxicillin-pot clavulanate 875-125 mg tablet 1 tab PO BID Qty: 14 0RF doxycycline hyclate 100 mg tablet 100 mg PO BID 7 Days Qty: 14 0RF Continued clopidogrel [Plavix] 75 mg tablet 75 mg PO QAM Qty: 90 1RF latanoprost [Xalatan] 0.005 % drops 1 drp OPB QAM atorvastatin 40 mg tablet 40 mg PO QAM pantoprazole [Protonix] 40 mg tablet,delayed release (DR/EC) 40 mg PO QAM aspirin 81 mg Tablet,Delayed Release (Dr/Ec) 81 mg PO QAM Neuriva Original 100-100 mg Capsule 1 cap PO QAM lisinopril-hydrochlorothiazide [Zestoretic] 20-12.5 mg tablet 1 tab PO QAM amlodipine 10 mg tablet 10 mg PO QAM metformin 500 mg tablet extended release 24 hr 1,000 mg PO QAM sertraline 50 mg tablet 50 mg PO QAM glipizide [Glucotrol XL] 10 mg tablet extended release 24hr 10 mg PO QAM Rx Instructions: TAKE 1 TABLET BY MOUTH EVERY DAY. Discontinued cephalexin 500 mg capsule 500 mg PO QID Rx Instructions: STARTED 11/27/23 FOR 10 DAYS. Discharge Orders: Discharge Order (Routine); Ordered 12/01/23 Ordered By: Eugene Navarrete Admission Data Admit Date/Time: 11/29/23 16:03 Attending Provider: Eugene Navarrete Admit Provider: Monisha Spencer Primary Care Provider: Sammi Prieto Other Providers: Dawit Regan; Monisha Spencer
== END 2023-12-01 19:02 | disposition home or self-care (01) | DRG 603 ==
LOC: ED 13:44 → EDINP 16:03 → SUATTDRO 16:03 → EDINP 17:57 → 3W 19:35